=== PATIENT | female | born 1945 | race Caucasian/White ===

== ENCOUNTER 2023-09-09 17:42 | Inpatient (IN) ==
--- NOTE | 2023-09-09 18:53 | XRay Report ---
XR chest 1V portable HISTORY: 78 years-old Female weakness, cough acute weakness with shortness of breath and cough COMPARISON: None TECHNIQUE: AP view the chest FINDINGS: Atherosclerosis of the aorta with tortuosity. Cardiac silhouette is enlarged. No pneumothorax, pleura l effusion, airspace consolidation or pulmonary edema. Bones appear grossly intact. Mild right hemidi aphragmatic elevation. IMPRESSION: Cardiomegaly without acute process. ACT 112: Negative or not required by law. The above report was generated using voice recognition software. It may contain grammatical, syntax o r spelling errors. Electronically signed by: Brayan Natarajan M.D. 09/09/2023 6:52 PM
[2023-09-09 19:05] LABS: Basophils # (auto) 0.09 K/uL (0.00-0.20); Basophils % (auto) 0.9 %; Eosinophils # (auto) 0.36 K/uL (0.00-0.50); Eosinophils % (auto) 3.5 %; Hematocrit (blood only) 43.1 % (37.0-47.0); Immature Granulocytes # (auto) 0.05 K/uL (0.01-0.20); Immature Granulocytes % (auto) 0.5 %; Lymphocytes # (auto) 0.94 K/uL (1.20-3.40); Lymphocytes % (auto) 9.3 %; Mean Corpuscular Hemoglobin 29.3 pg (25.0-34.0); Mean Corpuscular Hgb Conc 32.5 g/dL (32.0-36.0); Mean Corpuscular Volume 90.2 fL (80.0-100.0); Mean Platelet Volume 11.9 fL (9.4-12.4); Monocytes # (auto) 1.05 K/uL (0.11-0.59); Monocytes % (auto) 10.3 %; Neutrophils # (auto) 7.66 K/uL (1.40-6.50); Neutrophils % (auto) 75.5 %; Platelet Count 219 K/uL (130-400); RDW Coefficient of Variation 13.3 % (11.5-14.5); RDW Standard Deviation 43.8 fL (36.4-46.3); Red Blood Count 4.78 M/uL (4.20-5.40); White Blood Count 10.15 K/ul (4.8-10.8)
[2023-09-09 19:16] LABS: Albumin Globulin Ratio 1.2 (0.9-2); Albumin Level 4.2 gm/dl (3.4-5.0); BUN Creatinine Ratio 23.3 (10-20); Bilirubin,Total 0.7 mg/dl (0.2-1.0); Calcium 9.9 mg/dl (8.6-10.3); Creatinine Clr Calc Pharmacy 50.9 ml/min; Est GFR (African American) 59.5 ml/min; Est GFR (Non-African American) 51.3 ml/min; Globulin 3.6 gm/dl (2.5-4.0); Magnesium 1.7 mg/dl (1.7-2.4); Total Protein 7.8 gm/dl (6.0-8.3)
[2023-09-09 19:22] LABS: Troponin I High Sensitivity 17.4 pg/ml (0-14)
[2023-09-09 19:32] LABS: Thyroid Stimulating Hormone 2.959 uIu/ml (0.300-4.500)
[2023-09-09] MEDS: SODIUM CHLORIDE 0.9% 1,000 ML IV SCH (19:45)
[2023-09-09 20:11] LABS: Adenovirus PCR Not Detected (NotDetected); Bordetella parapertussis PCR Not Detected (NotDetected); Bordetella pertussis PCR Not Detected (NotDetected); Chlamydia pneumoniae PCR Not Detected (NotDetected); Coronavirus 229E PCR Not Detected (NotDetected); Coronavirus CoV-2 (COVID19)PCR Not Detected (NotDetected); Coronavirus HKU1 PCR Not Detected (NotDetected); Coronavirus NL63 PCR Not Detected (NotDetected); Coronavirus OC43PCR Not Detected (NotDetected); Human Metapneumovirus PCR Not Detected (NotDetected); Influenza A PCR Not Detected (NotDetected); Influenza B PCR Not Detected (NotDetected); Mycoplasma pneumoniae PCR Not Detected (NotDetected); Parainfluenza Virus 1 PCR Not Detected (NotDetected); Parainfluenza Virus 2 PCR Not Detected (NotDetected); Parainfluenza Virus 3 PCR DETECTED (NotDetected); Parainfluenza Virus 4 PCR Not Detected (NotDetected); Respiratory Syncytial VirusPCR Not Detected (NotDetected); Rhinovirus/Enterovirus PCR Not Detected (NotDetected)
--- NOTE | 2023-09-09 20:12 | Emergency Department Note ---
Impression & Plan Generalized weakness, Flu-like symptoms, Accidental fall, Infection due to parainfluenza virus 3, Orthostasis ED Provider Note NAME: BERRY ROTH AGE: 78 SEX: Female INFORMANT: Patient and family ED PROVIDER(S): Manas Gonzalez MD CHIEF COMPLAINT: Fall PLAN: Disposition: Admitted Outpatient prescription management: none Referral: None MEDICAL DECISION MAKING: Patient was evaluated after a fall due to generalized weakness. She suffered no injury from this. She did have flulike symptoms. Workup was initiated. Chest x-ray did not reveal any acute findings. EMS noted hypoxia on their arrival however the patient's O2 saturations were borderline adequate here. She was hydrated. Patient has an unremarkable CBC but left shift on differential. Her chemistry panel reveals mild dehydration. Troponin was borderline. BNP normal. TSH normal. BioFire testing was performed. Patient has a positive parainfluenza on bio fire testing. No pneumonia was seen on chest x-ray. Patient had positive orthostatic testing and was too weak to ambulate even with nursing assistance. Patient was given a DuoNeb. On reassessment she was doing relatively well. She had mild orthostasis on testing for she was given additional IV fluids. Family states she has had poor p.o. intake for the last few days. She will need further management in the hospital. Consultation was made with Dr. Jamarcus Casas of the [facility] service. Patient was evaluated in the ER for further management. Care/management discussed with: customer program manager requires escalation of care to admission Level of care consideration(s): After review of the information above and other included data, I feel the patient requires escalation of care to admission. Triage Nursing notes: reviewed and agree them. Vital Signs: reviewed and remarkable for orthostasis Additional History obtained from: Family. They note flulike symptoms have circulated around additional members. Chronic Medical/Social Conditions affecting care: CAD Prior/ Outside/ External records reviewed: none Differential Diagnosis: Viral syndrome, infection, dehydration, metabolic abnormality, hypo/hyperglycemia, electrolyte disturbance, anemia, hypoxia, cardiac sources, intracerebral event, toxicologic, neurologic, as well as other pathologies. Diagnostics, independently interpreted by me: ECG: Twelve-lead ECG reveals normal sinus rhythm with a left bundle branch block at 99 bpm. When compared to 06 January 2023 rate has increased but morphology is similar. The criteria for anterior and inferior infarct are no longer present Cardiac Monitoring: Cardiac monitoring ordered by me: The patient was placed on continuous cardiac monitoring and observed. It revealed a a sinus tachycardic rhythm at 101 bpm Medical decision rules: none Imaging studies: Chest x-ray. Findings: A chest x-ray was performed and revealed no pneumothorax, effusion, infiltrate, pulmonary edema, free air under the diaphragm, or wide mediastinum. Impression: No acute disease. HPI: 78 year old Female arrives for evaluation of a fall. Patient states she felt generally weak and has been dealing with flulike symptoms for 4 days. Family has been dealing with a flulike illness as well. She has had some diarrhea patient states that she got weak and slid out of bed onto the floor. She feels like she did not hurt herself but she was too weak to get up. EMS was summoned. They did note that her initial O2 saturation was in the 80s. Patient responded well and on arrival here her O2 saturations were in the low 90s on room air. Patient notes feeling generally weak and has a nonproductive cough. Pt denies LOC, headache, fevers, chills, diaphoresis, visual changes, neck pain, chest pain, shortness of breath nausea, vomiting, abdominal pain, back pain, melena, hematochezia, urinary symptoms, numbness, lymphadenopathy, rash, or other complaints.. PAST MEDICAL HISTORY: See Below, CAD, left bundle branch block PAST SURGICAL HISTORY: See Below, coronary stent SOCIAL HISTORY: See Below, non-smoker HOME MEDICATIONS: See Below ALLERGIES: See Below VITALS: See Below PHYSICAL EXAMINATION: GENERAL: Awake, alert, mildly ill-appearing, in no distress HENT: Normocephalic, atraumatic. Oropharynx unremarkable. Nasal congestion present EYES: Mildly erythematous conjunctiva without discharge. Sclera non-icteric. NECK: Inspection normal. Non-tender. Supple. No nuchal rigidity. FROM. No masses. RESPIRATORY: Clear to auscultation. No wheezes. No rales. Normal respiratory effort. CARDIAC: Normal rate. Normal rhythm. No murmurs. No rubs. Extremities warm and well perfused. Pulses equal. No JVD. GI: Soft, non-distended. No tenderness to palpation. No rebound or guarding. No masses. RECTAL: Deferred. MUSCULOSKELETAL: Atraumatic. Chest examination reveals no tenderness. The back is symmetrical on inspection without obvious abnormality. There is no CVA tenderness to palpation. No joint edema. LOWER EXTREMITIES: Calves are equal size bilaterally and non-tender. 1+ edema. No discoloration. NEURO: Normal sensorium. Generally weak but no focal sensory or motor deficits noted. SKIN: No rash or jaundice noted. PROCEDURES: none CRITICAL CARE: none OBSERVATION NOTE: none Past Med/Surg History Problem List (Updated 09/09/23 @ 23:06 by Manas Gonzalez MD) Orthostasis (Acute) Infection due to parainfluenza virus 3 (Acute) Accidental fall (Acute) Flu-like symptoms (Acute) Generalized weakness (Acute) S/P coronary artery stent placement LBBB (left bundle branch block) Carotid artery stenosis Hypertension Dyslipidemia CAD (coronary artery disease) Aortic valve sclerosis Medical History (Updated 09/09/23 @ 23:06 by Manas Gonzalez MD) TIA (transient ischemic attack) Sleep apnea Social History Smoking Status: Never smoker Feels Safe at Home: Yes Allergies Allergies Allergy/AdvReac Type Severity Reaction Status Date / Time No Known Allergies Allergy Verified 08/11/23 11:07 Home Meds Home Medications Medication Instructions Recorded Confirmed cholecalciferol (vitamin D3) 125 125 mcg PO DAILY 01/05/23 08/11/23 mcg (5,000 unit) capsule simvastatin 40 mg tablet 40 mg PO DAILY 01/05/23 08/11/23 spironolactone 25 mg tablet 25 mg PO DAILY 01/05/23 08/11/23 aspirin 81 mg tablet,delayed 81 mg PO DAILY 01/06/23 08/11/23 release Previous Rx's Medication Instructions Recorded metoprolol succinate 25 mg 25 mg PO DAILY #90 tabs 01/06/23 tablet,extended release 24 hr levothyroxine 100 mcg tablet 100 mcg PO DAILY #40 tabs 01/20/23 Results & Data (ED) Vital Signs Vital Signs - 24 hr 09/09/23 17:42 09/09/23 17:51 09/09/23 17:55 Temperature 36.8 C Temperature Source Oral Pulse Rate - Lying Pulse Rate - Sitting Pulse Rate - Standing Pulse Rate 107 H 91 H 95 H Pulse Rate from SpO2 Sensor 94 H Pulse Rhythm Respiratory Rate 18 23 Respiratory Effort / Characteristics Non-Labored Respiratory Depth Normal Respiratory Pattern Regular Blood Pressure - Lying Blood Pressure - Sitting Blood Pressure- Standing Blood Pressure 181/82 H Blood Pressure Mean 115 Pulse Oximetry 94 95 Oxygen Delivery Method Room Air Sepsis Recent Fever Within 48 Hours No Sepsis New/Unexplained Change in Mental Status N/A Sepsis Action Taken by Nursing No Action Required 09/09/23 18:00 09/09/23 18:00 09/09/23 18:30 Temperature Temperature Source Pulse Rate - Lying Pulse Rate - Sitting Pulse Rate - Standing Pulse Rate 90 100 H Pulse Rate from SpO2 Sensor 91 H 99 H Pulse Rhythm Respiratory Rate 26 H 12 Respiratory Effort / Characteristics Respiratory Depth Respiratory Pattern Blood Pressure - Lying Blood Pressure - Sitting Blood Pressure- Standing Blood Pressure 180/75 H Blood Pressure Mean 100 Pulse Oximetry 93 93 Oxygen Delivery Method Sepsis Recent Fever Within 48 Hours Sepsis New/Unexplained Change in Mental Status Sepsis Action Taken by Nursing 09/09/23 18:31 09/09/23 18:31 09/09/23 18:35 Temperature Temperature Source Pulse Rate - Lying Pulse Rate - Sitting Pulse Rate - Standing Pulse Rate 100 H 107 H Pulse Rate from SpO2 Sensor 101 H Pulse Rhythm Regular Respiratory Rate 17 18 Respiratory Effort / Characteristics Respiratory Depth Respiratory Pattern Blood Pressure - Lying Blood Pressure - Sitting Blood Pressure- Standing Blood Pressure 165/46 H Blood Pressure Mean 75 Pulse Oximetry 92 94 Oxygen Delivery Method Room Air Sepsis Recent Fever Within 48 Hours Sepsis New/Unexplained Change in Mental Status Sepsis Action Taken by Nursing 09/09/23 19:00 09/09/23 19:00 09/09/23 20:54 Temperature Temperature Source Pulse Rate - Lying 104 H Pulse Rate - Sitting 114 H Pulse Rate - Standing 113 H Pulse Rate 97 H Pulse Rate from SpO2 Sensor 103 H Pulse Rhythm Respiratory Rate 22 Respiratory Effort / Characteristics Respiratory Depth Respiratory Pattern Blood Pressure - Lying 164/78 H Blood Pressure - Sitting 155/81 H Blood Pressure- Standing 101/59 L Blood Pressure 156/83 H Blood Pressure Mean 134 Pulse Oximetry 92 Oxygen Delivery Method Sepsis Recent Fever Within 48 Hours Sepsis New/Unexplained Change in Mental Status Sepsis Action Taken by Nursing Laboratory Data 09/09/23 17:50 09/09/23 17:50 Lab Results 09/09/23 09/09/23 09/09/23 Range/Units 17:50 19:09 22:02 WBC 10.15 (4.8-10.8) K/ul RBC 4.78 (4.20-5.40) M/uL Hgb 14.0 (12.0-16.0) g/dl Hct 43.1 (37.0-47.0) % MCV 90.2 (80.0-100.0) fL MCH 29.3 (25.0-34.0) pg MCHC 32.5 (32.0-36.0) g/dL RDW Std Deviation 43.8 (36.4-46.3) fL RDW Coeff of Niki 13.3 (11.5-14.5) % Plt Count 219 (130-400) K/uL MPV 11.9 (9.4-12.4) fL Immature Gran % (Auto) 0.5 % Neut % (Auto) 75.5 % Lymph % (Auto) 9.3 % Bladen % (Auto) 10.3 % Eos % (Auto) 3.5 % Baso % (Auto) 0.9 % Neut # (Auto) 7.66 H (1.40-6.50) K/uL Lymph # (Auto) 0.94 L (1.20-3.40) K/uL Bladen # (Auto) 1.05 H (0.11-0.59) K/uL Eos # (Auto) 0.36 (0.00-0.50) K/uL Baso # (Auto) 0.09 (0.00-0.20) K/uL Immature Gran # (Auto) 0.05 (0.01-0.20) K/uL Sodium 138 (136-145) mmol/L Potassium 4.0 (3.5-5.1) mmol/L Chloride 102 (98-107) mmol/L Carbon Dioxide 27 (21-32) mmol/L Anion Gap 9 (3-11) BUN 24 H (6-23) mg/dl Creatinine 1.03 (0.6-1.2) mg/dl Est Cr Clr Drug Dosing 50.9 ml/min Est GFR ( Amer) 59.5 ml/min Est GFR (Non-Af Amer) 51.3 ml/min BUN/Creatinine Ratio 23.3 H (10-20) Glucose 119 H (70-99(Fasting)) mg/dl Calcium 9.9 (8.6-10.3) mg/dl Magnesium 1.7 (1.7-2.4) mg/dl Total Bilirubin 0.7 (0.2-1.0) mg/dl AST 18 (13-39) U/L ALT 10 (7-52) U/L Alkaline Phosphatase 51 (34-104) U/L Troponin I High Sens 17.4 H (0-14) pg/ml B-Natriuretic Peptide 56 (0-100) pg/ml Total Protein 7.8 (6.0-8.3) gm/dl Albumin 4.2 (3.4-5.0) gm/dl Globulin 3.6 (2.5-4.0) gm/dl Albumin/Globulin Ratio 1.2 (0.9-2) TSH 2.959 (0.300-4.500) uIu/ml Urine Color Yellow Urine Appearance Clear (Clear) Urine pH 7.5 (4.5-7.5) Ur Specific [place] 1.016 (1.000-1.030) Urine Protein Trace H (Negative) Urine Glucose (UA) Negative (Negative) Urine Ketones 1+ H (Negative) Urine Blood 1+ H (Negative) Urine Nitrite Negative (Negative) Urine Bilirubin Negative (Negative) Urine Urobilinogen Negative (Negative) Ur Leukocyte Esterase Negative (Negative) Urine WBC (Auto) 0-5 (0-5) /hpf Urine RBC (Auto) 6-10 H (0-2) /hpf U Hyaline Cast (Auto) 0-2 (0-2) /lpf U Epithel Cells (Auto) 0-2 (0-2) /hpf Urine Bacteria (Auto) None Seen (None Seen) Adenovirus (PCR) Not Detected (NotDetected) B. pertussis DNA (PCR) Not Detected (NotDetected) B.parapertussis DNA PCR Not Detected (NotDetected) C. pneumoniae DNA (PCR) Not Detected (NotDetected) Coronavirus OC43 (PCR) Not Detected (NotDetected) Coronavirus HKU1 (PCR) Not Detected (NotDetected) Coronavirus 229E (PCR) Not Detected (NotDetected) SARS-CoV-2 (PCR) Not Detected (NotDetected) Coronavirus NL63 (PCR) Not Detected (NotDetected) Human Metapneumovir PCR Not Detected (NotDetected) Influenza Type A (PCR) Not Detected (NotDetected) Influenza Type B (PCR) Not Detected (NotDetected) M. pneumoniae (PCR) Not Detected (NotDetected) Parainfluenza 1 (PCR) Not Detected (NotDetected) Parainfluenza 2 (PCR) Not Detected (NotDetected) Parainfluenza 3 (PCR) DETECTED A (NotDetected) Parainfluenza 4 (PCR) Not Detected (NotDetected) RSV (PCR) Not Detected (NotDetected) Entero/Rhino (PCR) Not Detected (NotDetected) Administered Medications Sodium Chloride (Nss) 1,000 mls @ 125 mls/hr IV .Q8H JUSTO Stop: 10/09/23 19:44 Last Admin: 09/09/23 19:45 Dose: 125 mls/hr Documented By: MICHELLE Discontinued Medications Albuterol (Albut/Ipratrop 3mg/0.5mg Neb 3 Ml Vial) 3 ml NEB NOW STA; Protocol Stop: 09/09/23 20:50 Last Admin: 09/09/23 21:04 Dose: 3 ml Documented By: WILFREDO Sodium Chloride (Nss) 500 mls @ 999 mls/hr IV .Q31M ONE Stop: 09/09/23 21:43 Last Admin: 09/09/23 22:50 Dose: 999 mls/hr Documented By: MICHELLE Imaging Data Radiologist's Impression: Chest X-Ray 09/09/23 18:35 XR chest 1V portable HISTORY: 78 years-old Female weakness, cough acute weakness with shortness of breath and cough COMPARISON: None TECHNIQUE: AP view the chest FINDINGS: Atherosclerosis of the aorta with tortuosity. Cardiac silhouette is enlarged. No pneumothorax, pleural effusion, airspace consolidation or pulmonary edema. Bones appear grossly intact. Mild right hemidiaphragmatic elevation. IMPRESSION: Cardiomegaly without acute process. ACT 112: Negative or not required by law. The above report was generated using voice recognition software. It may contain grammatical, syntax or spelling errors. Electronically signed by: Brayan Natarajan M.D. 09/09/2023 6:52 PM Discharge Plan Visit Data Chief Complaint: Fall Stated Complaint: Fall ED Provider: Manas Gonzalez Discharge Problem: Generalized weakness, Flu-like symptoms, Accidental fall, Infection due to parainfluenza virus 3, Orthostasis Forms Stand Alone Forms: My [facility] Prescriptions Prescriptions: No Action levothyroxine 100 mcg tablet 100 mcg PO DAILY Qty: 40 0RF simvastatin 40 mg tablet 40 mg PO DAILY cholecalciferol (vitamin D3) 125 mcg (5,000 unit) capsule 125 mcg PO DAILY spironolactone 25 mg tablet 25 mg PO DAILY metoprolol succinate 25 mg tablet extended release 24 hr 25 mg PO DAILY Qty: 90 3RF aspirin 81 mg tablet,delayed release (DR/EC) 81 mg PO DAILY Referrals Referrals: PCP,NO [Primary Care Provider] -
[2023-09-09] MEDS: ALBUT/IPRATROP 3MG/0.5MG NEB 3 ML VIAL NEB STA (21:04)
--- NOTE | 2023-09-09 21:45 | History & Physical Report ---
Date of Service September 09, 2023 Assessment & Plan (1) Orthostasis: (2) Infection due to parainfluenza virus 3: (3) Accidental fall: (4) Flu-like symptoms: (5) Hypertension: (6) Dyslipidemia: (7) CAD (coronary artery disease): Plan Parainfluenza -Tested positive for parainfluenza 3 virus on respiratory biofire -Supportive measures -Chest x-ray without sign of pneumonia, no indication for antibiotics. UA without signs of infection -Will monitor daily CBC -Currently stable on room air, supplemental oxygen as needed -Yarelis Pozo PRN Weakness | Orthostasis -Ground level fall at home -Uses walker for ambulation -Suspect some deconditioning from current viral illness -PT, OT evaluations ordered -Due to poor PO intake and orthostasis, will start IV fluids and monitor BMP CAD -Continue statin Hypothyroidism -Continue levothyroxine Admit to med/tele Diet: heart healthy VTE prophylaxis: Lovenox Code Status: Full Code History of Present Illness Primary Care Provider: NO PCP Rajani Roy is a 78 year-old female with a past medical history of CAD, LBBB, HTN, dyslipidemia who presented to the hospital for weakness. She presented to the ED via EMS after a ground level fall and worsening weakness. Patient endorses several days of worsening weakness and feeling rundown. She notes that she lives with her daughter and son-in-law, notes that her family has also been sick in this same time period. Patient moved to the area to live with family about two years ago- has established with [facility] cardiology but does not have a PCP. Patient denies dizziness or lightheadedness, no nausea or vomiting. Endorses decreased intake of fluids and food since this illness started several days ago. She states she has "vein issues" and always has lower extremity swelling but this has not changed recently. Patient notes that she uses a walker at home. Patient also notes that her family that she lives with is leaving for [place] today for vacation. ED Course: -CBC,CMP, troponin -Chest x-ray, UA Allergies Allergy/AdvReac Type Severity Reaction Status Date / Time Sulfa (Sulfonamide Allergy Intermediate Hives Unverified 09/10/23 10:32 Antibiotics) Home Medications Medication Instructions Recorded Confirmed Type cholecalciferol (vitamin D3) 125 125 mcg PO DAILY 01/05/23 09/10/23 History mcg (5,000 unit) capsule simvastatin 40 mg tablet 40 mg PO DAILY 01/05/23 09/10/23 History spironolactone 25 mg tablet 25 mg PO DAILY 01/05/23 09/10/23 History aspirin 81 mg tablet,delayed 81 mg PO DAILY 01/06/23 09/10/23 History release levothyroxine 100 mcg tablet 100 mcg PO DAILY #40 tabs 01/20/23 09/10/23 Rx docusate sodium 100 mg capsule 100 mg PO BID 09/10/23 09/10/23 History (Colace) metoprolol succinate 50 mg 25 mg PO DAILY 09/10/23 09/10/23 History tablet,extended release 24 hr Past Med/Surg History Problem List (Updated 09/09/23 @ 23:06 by Manas Gonzalez MD) Orthostasis (Acute) Infection due to parainfluenza virus 3 (Acute) Accidental fall (Acute) Flu-like symptoms (Acute) Generalized weakness (Acute) S/P coronary artery stent placement LBBB (left bundle branch block) Carotid artery stenosis Hypertension Dyslipidemia CAD (coronary artery disease) Aortic valve sclerosis Medical History (Updated 09/09/23 @ 23:06 by Manas Gonzalez MD) TIA (transient ischemic attack) Sleep apnea Social History Smoking Status: Never smoker Hx Alcohol Use: No Hx Substance Use: No Preferred Language: Syriac Communication Ability: Effective Embroidery Finisher Required: No Beliefs That Will Affect Care: None Current Living Situation: Family Other Information That Helps Us Care for You: No Feels Safe at Home: Yes Safety Concerns: Feels Safe At This Time Assistive Devices: Walker and Wheelchair Review of Systems Review of Systems: As per above Physical Exam Constitutional: Appears fatigued but in no acute distress Eyes: + anicteric sclerae; no conjunctival abn ormality ENMT: Ears: no external ear abnormality Nose: no external nose abnormality Slightly tacky mucous membranes Respiratory: + cough; no respiratory distress and nettles s not use accessory muscles Some diminished lung sounds Cardiovascular: Rate/Rhythm: regular rate and regular rhythm +1 edema of bilateral lower extremities, skin with signs of venous stasis dermatitis Gastrointestinal (Abdomen): Inspection/Auscultation: abdomen normal to inspection; abdomen not distended Percussion/Palpation: abdomen soft; abdomen nontender Musculoskeletal: Moves all limbs indepdently in bed Neurologic: no focal motor deficits Psychiatric: A+Ox3, euthymic affect Results & Data Results & Data Vital Signs (Past 12 Hours) Vital Signs Temp Pulse Resp BP Pulse Ox O2 Del Method 09/09/23 19:00 97 H 22 92 09/09/23 19:00 156/83 H 09/09/23 18:35 107 H 18 94 Room Air 09/09/23 18:31 165/46 H 09/09/23 18:31 100 H 17 92 09/09/23 18:30 100 H 12 93 09/09/23 18:00 90 26 H 93 09/09/23 18:00 180/75 H 09/09/23 17:55 95 H 23 95 09/09/23 17:51 91 H 09/09/23 17:42 36.8 C 107 H 18 181/82 H 94 Room Air Supervising Physician Co-Signing Physician Notes Attending addendum: I have physically seen this patient, have supervised the medical residents activities, and agree with the H&P unless as otherwise noted. Assessment and Plan: Parainfluenza virus 3 infection- Positive testing on respiratory BioFire Supportive treatment with IV fluids and Tylenol Tessalon Perles 100 mg p.o. 3 times daily as needed DuoNebs every 2 hours as needed Weakness/orthostasis- Status post ground-level fall at home Likely secondary to above viral infection Follow after receiving IV fluids May need PT/OT assessment Elevated troponin/CAD- Troponin 17.4, likely supply/demand mismatch Remaining orders and notations as noted
[2023-09-09] MEDS: SODIUM CHLORIDE 0.9% 500 ML IV ONE (22:50)
[2023-09-09 22:54] LABS: Appearance Urine Clear (Clear); Bacteria Urine Automated None Seen (None Seen); Bilirubin Urine Negative (Negative); Blood Urine 1+ (Negative); Cast Urine Automated 0-2 /lpf (0-2); Color Urine Yellow; Epithelial Cell Urine Auto 0-2 /hpf (0-2); Glucose Urine UA Negative (Negative); Ketones Urine 1+ (Negative); Leukocyte Esterase Urine Negative (Negative); Nitrite Urine Negative (Negative); Protein Urine Trace (Negative); Specific Gravity Urine 1.016 (1.000-1.030); Urobilinogen Urine Negative (Negative); WBC Urine Automated 0-5 /hpf (0-5); pH Urine 7.5 (4.5-7.5)
[2023-09-09] MEDS ORDERED: BENZONATATE 100 MG CAPSULE PO PRN (23:11)
[2023-09-09] MEDS ORDERED: DOCUSATE SODIUM 100 MG CAP PO PRN (23:11)
[2023-09-09] MEDS ORDERED: POLYETHYLENE (MIRALAX) 17 GM PACK PO PRN (23:11)
[2023-09-10 04:44] LABS: Basophils # (auto) 0.06 K/uL (0.00-0.20); Basophils % (auto) 0.7 %; Eosinophils # (auto) 0.03 K/uL (0.00-0.50); Eosinophils % (auto) 0.4 %; Immature Granulocytes # (auto) 0.06 K/uL (0.01-0.20); Immature Granulocytes % (auto) 0.7 %; Lymphocytes # (auto) 0.86 K/uL (1.20-3.40); Lymphocytes % (auto) 10.1 %; Mean Corpuscular Hemoglobin 29.5 pg (25.0-34.0); Mean Corpuscular Hgb Conc 33.3 g/dL (32.0-36.0); Mean Corpuscular Volume 88.6 fL (80.0-100.0); Mean Platelet Volume 11.3 fL (9.4-12.4); Monocytes # (auto) 1.09 K/uL (0.11-0.59); Monocytes % (auto) 12.8 %; Neutrophils % (auto) 75.3 %; Platelet Count 191 K/uL (130-400); RDW Coefficient of Variation 13.2 % (11.5-14.5); RDW Standard Deviation 43.4 fL (36.4-46.3)
[2023-09-10 04:51] LABS: Albumin Level 3.6 gm/dl (3.4-5.0); Calcium 8.8 mg/dl (8.6-10.3); Est GFR (African American) 85.9 ml/min; Est GFR (Non-African American) 74.1 ml/min; Phosphorus 3.1 mg/dl (2.5-4.9); Potassium 3.8 mmol/L (3.5-5.1)
[2023-09-10] MEDS: LEVOTHYROXINE SODIUM 100 MCG TABLET PO SCH (07:14)
[2023-09-10] MEDS: ASPIRIN 81 MG ECTAB PO SCH (09:16)
[2023-09-10] MEDS: SPIRONOLACTONE 25 MG TAB PO SCH (09:16)
[2023-09-10] MEDS: METOPROLOL SUCC 25MG EXT REL TAB PO SCH (09:16)
[2023-09-10] MEDS: SIMVASTATIN 40 MG TAB PO SCH (09:16)
[2023-09-10] MEDS: ENOXAPARIN INJ 40 MG/0.4 ML SYR SQ SCH (09:16)
--- NOTE | 2023-09-10 10:25 | Electrocardiogram Report ---
Test Reason : Blood Pressure : / mmHG Vent. Rate : 099 BPM Atrial Rate : 099 BPM P-R Int : 198 ms QRS Dur : 154 ms QT Int : 402 ms P-R-T Axes : 032 -24 137 degrees QTc Int : 515 ms Normal sinus rhythm Left bundle branch block Abnormal ECG When compared with ECG of 06-JAN-2023 13:50, (unconfirmed) Vent. rate has increased BY 45 BPM Left bundle branch block has replaced Non-specific intra-ventricular conduction block Criteria for Anterior infarct are no longer Present Criteria for Anterolateral infarct are no longer Present Criteria for Inferior infarct are no longer Present Confirmed by Joey Todd ([id number]) on 09/10/2023 10:24:59 AM Referred By: REFERRED SELF Confirmed By:Nathaniel Todd
--- NOTE | 2023-09-10 10:56 | Hospitalist Progress Note ---
"Date of Service September 10, 2023 Assessment & Plan (1) Orthostasis: (2) Infection due to parainfluenza virus 3: (3) Accidental fall: (4) Flu-like symptoms: (5) Hypertension: (6) Dyslipidemia: (7) CAD (coronary artery disease): Plan 78 year-old female with a past medical history of CAD, LBBB, HTN, dyslipidemia who presented to the hospital for weakness and related ground level fall: Parainfluenza -Respiratory panel positive for parainfluenza 3 virus -WBC WNL, pt afebrile, Chest x-ray without sign of pneumonia - however, patient appears to be clinically worsening with worsening tachypnea and intermittent need for supplemental oxygen - will start IV Ceftriaxone + azithromycin and monitor for evidence of improvement. -Will monitor daily CBC -Continue supplemental oxygen as needed -Yarelis Pozo PRN Weakness | Ground level fall -S/p Ground level fall at home, normally uses walker for ambulation at baseline -Suspect some deconditioning from current viral illness -PT, OT evaluations ordered, appreciate recs -CM following for dispo planning CAD -Continue statin HTN -Continue home meds Hypothyroidism -Continue levothyroxine med/tele Diet: heart healthy VTE prophylaxis: Lovenox Code Status: Full Code Admission and Anticipated Discharge Date Admission Date: September 09, 2023 Supervising Physician Co-Signing Physician Notes Attending attestation Pt seen and examined in concert with Dr. Goldstein. In agreement with the documented findings as noted in the resident documentation with any exceptions or additions as noted here. Ongoing severe weakness and debility, nonproductive cough but without other accompanying complaint. Reports no fever, GONZALEZ, palpitations, chest pain. On examination, S1/S2 nl RRR no MCG. diffuse rales - some likely transmitted but worse at bases so concerning for developing PNA. Abd NT/ND BS+ve Parainfluenza with concern for PNA on evaluation - abx therapy as noted and monitor daily CBC, BMP. Henna. Generalized weakness - PT/Ot evaluation pending but likely with mprovement in condition. Else see resident documentation as noted. Subjective Patietn evaluated at bedside this morning and again with attending in the afternoon, appears to have gotten more run down and fatigued as the day has gone on. Apart from noting severe weakness/fatigue, patient denies shortness of breath, chest pain, fever/chills. Notes that she has felt a bit sick for the past 4-5 days and weakness started yesterday, leading to fall. Review of Systems Review of Systems: as per HPI Physical Exam Physical Exam: General: Evidently fatigued, resting in bed, no apparent distress Cardiac: Regular rate and rhythm, no murmurs appreciated Respiratory: +Tachypnea, subpar respiratory effort but no wheezes, rales, rhonchi appreciated Abdominal: Soft, non-tender, non-distended. Bowel sounds present. Extremities: +bilateral LE pitting edema to mid-sloan, venous stasis changes Results & Data Results & Data Vital Signs (Past 12 Hours) Vital Signs Temp Pulse Resp BP Pulse Ox Pulse Ox O2 Del Method 09/10/23 09:31 96 H 09/10/23 07:06 Room Air 09/10/23 06:00 94 H 24 141/78 H 90 Room Air 09/10/23 05:30 36.9 C 09/10/23 05:00 105 H 20 138/93 91 Room Air 09/10/23 04:00 97 H 16 153/66 H 90 Room Air 09/10/23 03:32 92 09/10/23 03:00 98 H 25 H 140/63 92 Room Air 09/10/23 02:00 96 H 24 116/61 91 Room Air 09/10/23 01:44 94 H 25 H 129/53 L 92 Room Air 09/10/23 01:21 101 H 22 109/73 93 Room Air 09/10/23 01:00 96 H 23 130/67 09/10/23 00:30 97 H 23 139/67 09/09/23 23:30 100 H 24 122/70 09/09/23 23:00 103 H 23 128/75 O2 Del Method 09/10/23 09:31 09/10/23 07:06 09/10/23 06:00 09/10/23 05:30 09/10/23 05:00 09/10/23 04:00 09/10/23 03:32 Room Air 09/10/23 03:00 09/10/23 02:00 09/10/23 01:44 09/10/23 01:21 09/10/23 01:00 09/10/23 00:30 09/09/23 23:30 09/09/23 23:00 Resident Activity Tracking Resident Involvement: Resident Care Provided Care Provided: Adult [facility] Medicine"
[2023-09-10] MEDS: ALBUT/IPRATROP 3MG/0.5MG NEB 3 ML VIAL NEB PRN (13:29)
[2023-09-10] MEDS: cefTRIAXone SODIUM 2,000 MG/50 ML BAG IV SCH (13:44)
[2023-09-10] MEDS: AZITHROMYCIN 500 MG in DEXTROSE 5% 250 ML IV SCH (14:05)
[2023-09-10] MEDS: ONDANSETRON INJ 2 MG/ML 2 ML VIAL IV PRN (17:09)
--- NOTE | 2023-09-10 19:27 | Billing Data ---
Date of Service September 10, 2023 Coding Level of Care Code 88690 INT INP/OBS CARE
[2023-09-10] MEDS: ACETAMINOPHEN 325 MG TAB PO PRN (20:05)
[2023-09-10] MEDS ORDERED: diphenhydrAMINE 50 MG/ML VIAL IV PRN (20:26)
[2023-09-11] MEDS: RAPID SEQUENCE INDUCTION BAG ONE (03:35)
[2023-09-11] MEDS: FUROSEMIDE 40 MG/4 ML VIAL IV ONE ×2 (03:45→05:07)
[2023-09-11 03:50] LABS: Base Excess VBG 1.1 mEq/L; HCO3 VBG 28 mmol/L; Oxygen Saturation VBG < 60.0 %; PCO2 VBG 55 mmHg (38-50); PO2 VBG 23 mmHg; pH VBG 7.32 (7.36-7.41)
--- NOTE | 2023-09-11 03:53 | Communication Note ---
Date of Service: September 11, 2023 Yamilet Hughes was called at approximately 0300. Hypoxic to the 80s and hypertensive 200s/100s. Increased oxygen requirement from 2L to 15L. Pt admitted with parainfluenza, per day team tachypneic, increased fatigue/weakness throughout the day. At bedside pt appears acutely short of breath with increased secretions. Increased work of breathing with accessory muscle use. Inspiratory/Expiratory wheezing, crackles with excessive secretions. Duoneb given, 40 IV Lasix. Did get 2L IVF in the last 24 hours. With concern for increased work or breathing and concern for increased somnolence, decision was made to transfer patient to ICU as concern that she would need to be intubated. Pt was intubated in ICU. I called son, Maxim, and he is aware of current status.
[2023-09-11] MEDS: NOREPINEPHRINE/D5W 4 MG/250 ML PLCT IV SCH (04:00)
[2023-09-11 04:11] LABS: Albumin Level 3.8 gm/dl (3.4-5.0); BUN Creatinine Ratio 15.6 (10-20); Bilirubin,Total 0.9 mg/dl (0.2-1.0); Calcium 9.1 mg/dl (8.6-10.3); Creatinine Clr Calc Pharmacy 55.3 ml/min; Est GFR (African American) 64.7 ml/min; Est GFR (Non-African American) 55.9 ml/min; Globulin 3.9 gm/dl (2.5-4.0); Magnesium 1.7 mg/dl (1.7-2.4); Phosphorus 2.8 mg/dl (2.5-4.9); Potassium 3.6 mmol/L (3.5-5.1); Total Protein 7.7 gm/dl (6.0-8.3)
[2023-09-11 04:19] LABS: Troponin I High Sensitivity 248.4 pg/ml (0-14)
[2023-09-11] MEDS ORDERED: OSELTAMIVIR PHOSPHATE 75 MG CAP PO STA (04:23)
[2023-09-11] MEDS ORDERED: STAT IV Infusion **Titration per Protocol STA ×2 (04:28→05:07)
[2023-09-11] MEDS: BUDESONIDE 0.5 MG/2 ML VIAL (PULMICORT) NEB ONE (04:29)
--- NOTE | 2023-09-11 04:31 | Critical Care Consultation ---
Date of Consultation September 11, 2023 Assessment & Plan (1) Respiratory failure: (2) Required emergent intubation: (3) Infection due to parainfluenza virus 3: (4) Generalized weakness: (5) Hypertension: (6) Dyslipidemia: (7) CAD (coronary artery disease): (8) Aortic valve sclerosis: Plan Reason Critically Ill: Hypoxic and hypercarbic respiratory failure with pulmonary edema requiring intubation and mechanical ventilation. Neuro - Sedation for mechanical ventilation CAM ICU: Negative - is with poor baseline function and sedentary at home per chart review - Hopeful course of intubation is short - BERNADETTE goal -1, Fentanyl and Propofol for sedation Cardiac - Elevated HsCTNI, CAD, Aortic sclerosis, HTN, HLD, - Patient with noted hypertension on arrival to floor associated with respiratory failure - Lasix 40 IV now - CTA of chest rule out PE as well as eval lung browning- she is now with bilateral patchy infiltrates - Repeat ECHO- eval for change in EF or valve function - HScTNI likely secondary to type II demand- ECG with chronic LBB- trend troponin - Hold BB until hemodynamics proven stable - IV diurese as able - Levophed for hypotension associated with sedation to maintain MAPS> 65 Respiratory - Hypoxic/Hypercarbic respiratory failure - CXR with bilateral patchy infiltrates: Multiple etiologies at this time- viral illness, flash pulmonary edema (SCAPE) from HTN, vs. DAH vs. PE vs. aspiration vs. Other - CTA chest as above - She is currently not refractory hypoxemic and tolerating weaning of PEEP and FIO2 - Hemoptysis noted prior to intubation - intubation noted with difficult passing of ETT through vocal chords- see separate procedure note - Consider Bronchoscopy if DAH suspected following CT scan of chest - Pulmicort neb now as well as daily, schedule COCO nebs - ABG as needed GI - No acute needs - NPO RENAL/LYTES - No acute needs - Follow daily BMP - ICU electrolyte protocol - No acute needs - Place Irwin while intubated ENDO - ICU hyperglycemia protocol- goal <180mg/DL HEME - She is currently oozing from IV sticks, and hemoptysis as well - will send PTT/PT/INR/Fibrinogen- continue supportive care ID - Parainfluenza 3, - Can't exclude bacterial pulmonary source or aspiration - Continue with Azithromycin, Add Zosyn in place of Rocephin at this time - Blood cultures now as currently febrile LINES/IV ACCESS - PIV x2, arterial line, Irwin Continue use of these lines DVT PROPHYLAXIS - Lovenox 40 subq q q24 DISPO: ICU while intubated and sedated I have personally spent 55 minutes of critical care time in the direct management of this patient. This is a life/limb threatening event. This includes time spent evaluating patient, direct bedside care, chart review, placing orders, interpretation of diagnostic studies, discussion with consultants, patient, and family members, as well as other required patient management activities. This time is exclusive of all separately billable procedures, and teaching time and separate from and in addition to any other critical care service time. Thank you for allowing us to participate in the care of this patient. Please refer to my attending physician's documentation for any further recommendations. History of Present Illness Reason for Consultation: Hypoxic respiratory failure Requesting Physician: Jamarcus Casas MD Attending Physician: Joey Bravo MD History of Present Illness 78 YOF who is HD #2 admitted on 09Sep2023 for flu like symptoms, she did test + for parainfluenza 3. David Hughes was called around 0300 this morning and patient was found to be Hypertensive to 200s/100s, hypoxic in the 70s with inspiratory and expiratory wheezing as well as moist cough with crackles throughout. Patient was given 40mg IV lasix by admitting service and nebulizer. Patient was placed on oxymask at 15L and remained hypoxic to the 80s. She had increased work of breathing, using accessory muscles with inability to effectively cough to clear airway. Patient was alert and then started to complain of dizziness and became more somnolent. Decision was made to transfer to the ICU and intubate patient pending respiratory arrest. Patient was intubated by Dr. Young from [facility], see separate procedure note. Post intubation she required short course of Levophed for blood pressure control. ABG revealed hypercarbia as well, hypoxia is resolved, lung sounds improved. Will minimize ventilator settings as appropriate. Arterial line placed for accurate blood pressure monitoring as well as blood draws. She may need central line for access as well as she is with poor access at this time as well as obese body habitus. Previous medical history noted for : Kypohsis, CAD with stent (2009), LBBB, HTN, HLD, Carotid artery stenosis 50-69% right, and >70% left with retrograde flow (2019) CODE: FULL Allergies Allergy/AdvReac Type Severity Reaction Status Date / Time Sulfa (Sulfonamide Allergy Intermediate Hives Unverified 09/10/23 10:32 Antibiotics) Home Medications Medication Instructions Recorded Confirmed Type cholecalciferol (vitamin D3) 125 125 mcg PO DAILY 01/05/23 09/10/23 History mcg (5,000 unit) capsule simvastatin 40 mg tablet 40 mg PO DAILY 01/05/23 09/10/23 History spironolactone 25 mg tablet 25 mg PO DAILY 01/05/23 09/10/23 History aspirin 81 mg tablet,delayed 81 mg PO DAILY 01/06/23 09/10/23 History release levothyroxine 100 mcg tablet 100 mcg PO DAILY #40 tabs 01/20/23 09/10/23 Rx docusate sodium 100 mg capsule 100 mg PO BID 09/10/23 09/10/23 History (Colace) metoprolol succinate 50 mg 25 mg PO DAILY 09/10/23 09/10/23 History tablet,extended release 24 hr Patient History Medical History (Updated 09/11/23 @ 05:05 by ROSA ISELA Traylor) Orthostasis Accidental fall LBBB (left bundle branch block) TIA (transient ischemic attack) Sleep apnea Surgical History (Updated 09/11/23 @ 04:58 by ROSA ISELA Traylor) History of knee joint replacement Social History Smoking Status: Never smoker Hx Alcohol Use: No Hx Substance Use: No Preferred Language: Tajik Communication Ability: Effective Supply [employer]er Required: No Beliefs That Will Affect Care: None Current Living Situation: Family Other Information That Helps Us Care for You: No Feels Safe at Home: Yes Safety Concerns: Feels Safe At This Time Assistive Devices: Walker and Wheelchair Review of Systems Review of Systems: REVIEW OF SYSTEMS: Unable to perform secondary to somnolence and now intubated Physical Exam Physical Exam: PHYSICAL EXAM: General: intubated and sedated, initially awake and conversant that progressed to somnolence Head: Normocephalic, atraumatic ENT: PERRLA, EOMI, no pharyngeal exudate, mucous membranes moist Neuro: AAO x 3, speech clear and appropriate, moving upper extremities and lower extremities, normally sedentary and wheel chair with walker at home Chest: equal rise and fall of the chest, accessory muscle use, inspiratory and expiratory wheezing, crackles, pink thick sputum. Cardiac: Regular rate and rhythm, telemetry reviewed- LBBB tachycardia, skin wa rm dry, cap refill delayed with dusky fingers and cool extremities, peripheral pulses +2 no JVD, no murmur, trace edema in extremities GI: NABS x 4 quadrants, soft, nontender to palpation, no rebound, guarding or tenderness : Irwin placed to gravity Psych: Normal mood and affect Skin: no rash or erythema Results & Data Results & Data Vital Signs (Past 12 Hours) Vital Signs Temp Pulse Pulse Resp BP Pulse Ox O2 Del Method 09/11/23 03:16 107 H 32 H 206/94 H 91 Oxymask 09/11/23 03:14 105 H 30 H 199/119 H 88 L Oxymask 09/11/23 02:45 36.6 C 86 20 167/78 H 94 Nasal Cannula 09/11/23 00:14 36.6 C 75 20 145/66 H 94 Nasal Cannula 09/10/23 23:00 Nasal Cannula 09/10/23 21:59 88 09/10/23 20:16 37.8 C H 86 20 161/73 H 93 Room Air 09/10/23 17:54 91 H 22 168/74 H 91 Nasal Cannula 09/10/23 17:10 Nasal Cannula 09/10/23 17:04 36.7 C 100 H 24 195/98 H 91 Nasal Cannula 09/10/23 16:59 95 H O2 Flow Rate 09/11/23 03:16 15 09/11/23 03:14 10 09/11/23 02:45 2 09/11/23 00:14 2 09/10/23 23:00 2 09/10/23 21:59 09/10/23 20:16 09/10/23 17:54 2 09/10/23 17:10 2 09/10/23 17:04 2 09/10/23 16:59 Laboratory Results Abnormal lab results 09/11/23 09/11/23 Range/Units 03:32 04:22 WBC 12.76 H (4.8-10.8) K/ul Hct 47.1 H (37.0-47.0) % Neut # (Auto) 8.83 H (1.40-6.50) K/uL [place]berry # (Auto) 1.30 H (0.11-0.59) K/uL POC pO2 122 H (80-95) mmHg POC Total CO2 23 L (24-31) mmol/L POC ABG O2 Sat 99.0 H (90-95) % VBG pH 7.32 L (7.36-7.41) VBG pCO2 55 H (38-50) mmHg POC Sodium 134 L (135-144) mmol/L Sodium 134 L (136-145) mmol/L Glucose 122 H (70-99(Fasting)) mg/dl Troponin I High Sens 248.4 H* D (0-14) pg/ml Diagnostic Findings Chest X-Ray 09/09/23 18:35 XR chest 1V portable HISTORY: 78 years-old Female weakness, cough acute weakness with shortness of breath and cough COMPARISON: None TECHNIQUE: AP view the chest FINDINGS: Atherosclerosis of the aorta with tortuosity. Cardiac silhouette is enlarged. No pneumothorax, pleural effusion, airspace consolidation or pulmonary edema. Bones appear grossly intact. Mild right hemidiaphragmatic elevation. IMPRESSION: Cardiomegaly without acute process. ACT 112: Negative or not required by law. The above report was generated using voice recognition software. It may contain grammatical, syntax or spelling errors. Electronically signed by: Brayan Natarajan M.D. 09/09/2023 6:52 PM ECG Additional Comments: NSR with LBBB Coding Level of Care Code 33675 CRITICAL CARE 1ST 30-74M Diagnoses Respiratory failure J96.90 Required emergent intubation Z98.890 Infection due to parainfluenza virus 3 B34.8 Generalized weakness R53.1 Hypertension I10 Dyslipidemia E78.5 CAD (coronary artery disease) I25.10 Aortic valve sclerosis I35.8
[2023-09-11 04:33] LABS: Basophils # (auto) 0.09 K/uL (0.00-0.20); Basophils % (auto) 0.7 %; Eosinophils % (auto) 0.8 %; Hematocrit (blood only) 47.1 % (37.0-47.0); Hemoglobin 15.5 g/dl (12.0-16.0); Immature Granulocytes # (auto) 0.06 K/uL (0.01-0.20); Immature Granulocytes % (auto) 0.5 %; Lymphocytes # (auto) 2.38 K/uL (1.20-3.40); Lymphocytes % (auto) 18.7 %; Mean Corpuscular Hemoglobin 29.6 pg (25.0-34.0); Mean Corpuscular Hgb Conc 32.9 g/dL (32.0-36.0); Mean Corpuscular Volume 90.1 fL (80.0-100.0); Mean Platelet Volume 11.2 fL (9.4-12.4); Monocytes % (auto) 10.2 %; Neutrophils # (auto) 8.83 K/uL (1.40-6.50); Neutrophils % (auto) 69.1 %; Platelet Count 211 K/uL (130-400); RDW Coefficient of Variation 13.2 % (11.5-14.5); RDW Standard Deviation 43.6 fL (36.4-46.3); Red Blood Count 5.23 M/uL (4.20-5.40); White Blood Count 12.76 K/ul (4.8-10.8)
[2023-09-11 04:36] LABS: iSTAT Art Bld Gas pCO2 Correct 39 mmHg (35-46); iSTAT Art Bld Gas pH Corrected 7.358 (7.35-7.45); iSTAT Arterial Blood Gas HCO3 22 meg/L (19-24); iSTAT Arterial Blood Gas pCO2 37 mmHg (35-46); iSTAT Arterial Blood Gas pH 7.37 (7.35-7.45); iSTAT Arterial Blood Gas pO2 122 mmHg (80-95); iSTAT Arterial Blood Gas pO2 C 128; iSTAT Carbon Dioxide 23 mmol/L (24-31); iSTAT FiO2 100 %; iSTAT Hematocrit 47 % (37-47); iSTAT Potassium 4.2 mmol/L (3.3-5.0); iSTAT Site Art Line; iSTAT Sodium 134 mmol/L (135-144)
--- NOTE | 2023-09-11 04:43 | Procedure Note ---
Procedure Note Date of Service September 11, 2023 Note ARTERIAL LINE PROCEDURE NOTE: Procedure: Arterial Line Placement Proceduralist: Arron NATARAJAN ([facility] Attending: Dr. Gee Indication: Monitoring on Pressors Anesthesia: [x]None Emergent Consent was implied as patient is FULL CODE need for accurate blood pressure and frequent blood sampling. Benefit outweighs risk at this time. A time-out was completed verifying correct patient, procedure, site, positioning, and implant(s) or special equipment if applicable. Allens test was performed to ensure adequate perfusion. Patients LEFT wrist was prepped and draped in the usual sterile fashion. Ultrasound guidance was used to aid needle placement. A 20g Arrow arterial line was introduced into the LEFT RADIAL artery. Brisk flash of blood was noted, the wire was advanced without resistance. The catheter was then threaded, and the needle was removed with appropriate blood return. Pressure tubing was attached noting a good waveform. The patient tolerated the procedure well. The line was sutured in place and covered with sterile dressing Blood Loss: Minimal Complications: None Attending: Dr. Gee Artery Identified: YES Line confirmed in Artery with ultrasound: Complications: NONE immediate Patient tolerated procedure: WELL Coding CPT Codes Tubes, Drains, and Vasc Access - Tubes, Drains, and Vasc Access: [id number] Arterial Cath/Cannulation Sampling/Monitoring/Transfusion ([id number]) [facility] [place] Procedure Codes (Charges) Tubes, Drains, and Vasc Access Procedure 1: Tubes, Drains, and Vasc Access: [id number] Arterial Cath/Cannulation Sampling/Monitoring/Transfusion
[2023-09-11] MEDS ORDERED: fentaNYL BOLUS from BAG IV PRN (05:07)
[2023-09-11] MEDS ORDERED: PROPOFOL BOLUS FROM BAG IV PRN (05:07)
[2023-09-11] MEDS: OPTIRAY 320 125ml IV ONE (05:58)
[2023-09-11] MEDS: fentaNYL citrate 2,500 MCG/250 ML BAG IV SCH (06:11)
[2023-09-11] MEDS: propofoL 1,000 MG/100 ML VIAL IV SCH (06:12)
[2023-09-11] MEDS: fentaNYL citrate 2,500 MCG/250 ML BAG IV ONE (06:19)
[2023-09-11] MEDS: NOREPINEPHRINE/D5W 4 MG/250 ML IV ONE (06:19)
[2023-09-11] MEDS: PROPOFOL IV EMULSION 10 MG/ML 100 ML VIAL IV ONE (06:19)
[2023-09-11] MEDS: PIPERACILLIN/TAZOBACTAM 4.5 GM in DEXTROSE 5% MINI-B 100 ML IV ONE (06:41)
[2023-09-11 06:42] LABS: Fibrinogen 724 mg/dl (184-400); Partial Thromboplastin Ratio 1.1; Partial Thromboplastin Time 30 Seconds (21-31); Prothrombin Time 11.3 Seconds (9.0-12.0)
--- NOTE | 2023-09-11 07:06 | Emergency Department Note ---
ED Visit Note Endotracheal Intubation in the ICU Indication: Respiratory failure. The patient was on 100% oxygen via BVM prior to the procedure. Suction, airway equipment, RSI drugs, respiratory equipment, and appropriate personnel were prepared prior to the initiation of the procedure. A time out was taken. Induction was performed with etomidate and succinylcholine. After observing the clinical benefit of the medications, the airway was easily visualized utilizing a glide scope. A 7.5 size ETT tube was used initially but intubation was unsuccessful as the endotracheal tube was too large to pass through the vocal cords. This was removed from the airway and bagged ventilations were performed again. O2 saturation remained around 90%. A 7.0 endotracheal tube was used on the second attempt and was placed atraumatically to 24 cm using standard technique. The cuff inflated without signs of malfunction. There were bilateral breath sounds, positive colormetric change, no gastric sounds, and post procedure pulse oximetry was 94%. .
[2023-09-11] MEDS: ALBUTEROL 0.083% NEBU SOLN 3 ML VIAL NEB SCH (07:12)
[2023-09-11] MEDS: BUDESONIDE 0.25 MG/2 ML VIAL (PULMICORT) NEB SCH (07:12)
--- NOTE | 2023-09-11 07:19 | Hospitalist Progress Note ---
"Date of Service September 11, 2023 Assessment & Plan (1) Infection due to parainfluenza virus 3: (2) Flu-like symptoms: (3) Hypertension: (4) Dyslipidemia: (5) CAD (coronary artery disease): Plan 78 year-old female with a past medical history of CAD, LBBB, HTN, dyslipidemia who presented to the hospital for weakness and related ground level fall: Hypoxic/Hypercarbic Respiratory Failure, Parainfluenza -Respiratory panel positive for parainfluenza 3 virus -Patient transferred to ICU after rapid decompensation characterized by heightened oxygen demand, tachypnea, new onset fevers - pt was intubated and placed on mechanical ventilation -CXR with bilateral patchy infiltrates - ?secondary bacterial pneumonia, abx changed to Zosyn + Azithromycin, blood cultures drawn, pending -ICU team may consider bronchoscopy -Continue albuterol and budesonide nebs Elevated HsCTNI, CAD, Aortic sclerosis, HTN, HLD - S/p Lasix 40mg IV - TTE ordered, pending - Elevated troponin likely due to demand ischemia - Pressor support as needed with target MAP>65 Weakness | Ground level fall -S/p Ground level fall at home, normally uses walker for ambulation at baseline -Suspect some deconditioning from current viral illness -PT, OT evaluations ordered, appreciate recs when patient can be feasibly assessed -CM following for dispo planning Hypothyroidism -Continue levothyroxine med/tele Diet: NPO VTE prophylaxis: Lovenox Code Status: Full Code Admission and Anticipated Discharge Date Admission Date: September 09, 2023 Supervising Physician Co-Signing Physician Notes Attending attestation Pt seen and examined in concert with Dr. Goldstein. In agreement with the documented findings as noted in the resident documentation with any exceptions or additions as noted here. Intubated and sedated on ventilator, history unobtainable. Family at bedside endorses no significant lead up to this debility. On examination, non-agitated breathing on vent. S1/S2 nl RRR no MCG. diffuse rales with transmitted sounds on vent. Acute hypoxic respiratory failure in the setting of Parainfluenza with concern for PNA - ICU consult appreciated - abx therapy escalated on transition to ICU with ongoing fevers. f/u cultures, trend CBC, BMP. Hypotension - on pressors with MAP ~60 at time of evaluation Else see resident documentation as noted. Subjective Code purple called overnight as patient was having rapidly escalating oxygen requirements, assessed by night team and decision was made to transfer patient to ICU, where she was intubated and placed on mechanical ventilation. Patient evaluated at bedside this morning with family present. Review of Systems Review of Systems: as per HPI Physical Exam Physical Exam: General: Sedated with endotracheal tube in place Results & Data Results & Data Vital Signs (Past 12 Hours) Vital Signs Temp Pulse Pulse Resp BP BP Pulse Ox 09/11/23 07:13 95 H 16 98 09/11/23 07:13 95 H 16 98 09/11/23 06:18 86 09/11/23 05:30 95 H 17 88 L 09/11/23 05:15 84 25 H 96 09/11/23 05:00 86 26 H 95 09/11/23 04:55 39.5 C H 89 15 95 09/11/23 04:55 127/55 L 09/11/23 04:51 94 H 30 H 92 09/11/23 04:51 120/60 09/11/23 04:46 114/59 L 09/11/23 04:46 87 27 H 93 09/11/23 04:45 39.3 C H 88 28 H 92 09/11/23 04:44 09/11/23 04:43 113/49 L 09/11/23 04:43 87 22 94 09/11/23 04:31 84 22 94 09/11/23 04:31 72/59 L 09/11/23 04:30 85 24 95 09/11/23 04:28 17 09/11/23 04:26 63/39 L 09/11/23 04:26 90 16 95 09/11/23 04:20 136/83 09/11/23 04:20 96 H 26 H 97 09/11/23 04:20 09/11/23 04:16 123/88 09/11/23 04:16 98 H 24 96 09/11/23 04:15 99 H 26 H 96 09/11/23 04:11 172/89 H 09/11/23 04:11 101 H 29 H 96 09/11/23 04:06 104 H 25 H 97 09/11/23 04:06 189/109 H 09/11/23 04:02 187/96 H 09/11/23 04:02 102 H 14 96 09/11/23 04:00 104 H 16 92 09/11/23 03:58 107 H 17 91 09/11/23 03:58 196/103 H 09/11/23 03:55 106 H 25 H 88 L 09/11/23 03:55 203/108 H 09/11/23 03:48 117 H 30 H 87 L 09/11/23 03:30 115 H 35 H 09/11/23 03:16 107 H 32 H 206/94 H 91 09/11/23 03:14 105 H 30 H 199/119 H 88 L 09/11/23 02:45 36.6 C 86 20 167/78 H 94 09/11/23 00:14 36.6 C 75 20 145/66 H 94 09/10/23 23:00 09/10/23 21:59 88 09/10/23 20:16 37.8 C H 86 20 161/73 H 93 O2 Del Method O2 Flow Rate FiO2 09/11/23 07:13 40 09/11/23 07:13 Mechanical Vent 40 09/11/23 06:18 09/11/23 05:30 09/11/23 05:15 09/11/23 05:00 09/11/23 04:55 09/11/23 04:55 09/11/23 04:51 09/11/23 04:51 09/11/23 04:46 09/11/23 04:46 09/11/23 04:45 09/11/23 04:44 Mechanical Vent 70 09/11/23 04:43 09/11/23 04:43 09/11/23 04:31 09/11/23 04:31 09/11/23 04:30 09/11/23 04:28 70 09/11/23 04:26 09/11/23 04:26 09/11/23 04:20 09/11/23 04:20 09/11/23 04:20 70 09/11/23 04:16 09/11/23 04:16 09/11/23 04:15 09/11/23 04:11 09/11/23 04:11 09/11/23 04:06 09/11/23 04:06 09/11/23 04:02 09/11/23 04:02 09/11/23 04:00 09/11/23 03:58 09/11/23 03:58 09/11/23 03:55 09/11/23 03:55 09/11/23 03:48 09/11/23 03:30 09/11/23 03:16 Oxymask 15 09/11/23 03:14 Oxymask 10 09/11/23 02:45 Nasal Cannula 2 09/11/23 00:14 Nasal Cannula 2 09/10/23 23:00 Nasal Cannula 2 09/10/23 21:59 09/10/23 20:16 Room Air Resident Activity Tracking Resident Involvement: Resident Care Provided Care Provided: Adult Hospital Medicine"
--- NOTE | 2023-09-11 07:35 | XRay Report ---
XR chest 1V portable HISTORY: 78 years-old Female intubation acute respiratory failure COMPARISON: CTA chest of same day, chest radiograph 09/09/2023 TECHNIQUE: AP view of the chest FINDINGS: Endotracheal tube overlies the midline, 1.9 cm superior to the heidy. Atherosclerosis of the aorta. Interval development of multifocal mixed interstitial and alveolar opacities along with trace pleural effusions. No pneumothorax. Bones appear grossly intact. Enteric tube distal tip terminates in the g astric body distally. IMPRESSION: 1. Endotracheal and enteric tube placement as above. 2. Cardiomegaly with interval development of mixed interstitial and alveolar opacities suggestive of pulmonary edema versus multifocal pneumonia. 3. Trace pleural effusions. ACT 112: Negative or not required by law. The above report was generated using voice recognition software. It may contain grammatical, syntax o r spelling errors. Electronically signed by: Brayan Natarajan M.D. 09/11/2023 7:33 AM
[2023-09-11] MEDS: ICU Protocol for HYPERglycemia SCH (08:00)
--- NOTE | 2023-09-11 08:53 | CT Scan Report ---
Exam(s): CTA CHEST IV Amt: 120 cc's optiray 320 EXAM: CT Angiography Chest With Intravenous Contrast CLINICAL HISTORY: Reason for exam: hypoxic respiratory failure. TECHNIQUE: Axial computed tomographic angiography images of the chest with intravenous contrast. CTDI is 37.49 mGy and DLP is 1126.14 mGy-cm. Automated exposure control was utilized for the study. A dose lowering technique was utilized adhering to the principles of ALARA. MIP reconstructed images were created and reviewed. COMPARISON: No relevant prior studies available. FINDINGS: Pulmonary arteries: Unremarkable. No pulmonary embolism. Aorta: No acute findings. No thoracic aortic aneurysm. Lungs: Bilateral multifocal pulmonary consolidations are seen. Scattered inflammatory groundglass densities also seen scattered in bilateral lungs. Pleural space: Small right pleural effusion fusion. No pneumothorax. Heart: Mild coronary vascular calcifications are seen. Mitral annular calcifications are seen. No cardiomegaly. No significant pericardial effusion. No evidence of RV dysfunction. Bones/joints: No acute fracture. No dislocation. Moderate degenerative disc disease changes are seen. Lymph nodes: Unremarkable. No enlarged lymph nodes. Gallbladder and bile ducts: There are multiple dependent gallstones. IMPRESSION: 1. Bilateral multifocal pneumonia 2. No acute pulmonary embolism 3. Small right pleural effusion Electronically signed by: David Fuller MD 09/11/23 08:52 AM
[2023-09-11] MEDS: ACETAMINOPHEN 1,000 MG/100 ML VIAL IV PRN (10:44)
--- NOTE | 2023-09-11 10:46 | Electrocardiogram Report ---
Test Reason : Blood Pressure : / mmHG Vent. Rate : 081 BPM Atrial Rate : 081 BPM P-R Int : 208 ms QRS Dur : 166 ms QT Int : 440 ms P-R-T Axes : 023 -26 139 degrees QTc Int : 511 ms Normal sinus rhythm Left bundle branch block Inferior infarct , age undetermined Abnormal ECG When compared with ECG of 09-SEP-2023 19:21, No significant change Confirmed by Gordon Narayan ([id number]) on 09/11/2023 10:45:52 AM Referred By: REFERRED SELF Confirmed By:Gordon Narayan
--- NOTE | 2023-09-11 10:48 | Electrocardiogram Report ---
Test Reason : Blood Pressure : / mmHG Vent. Rate : 090 BPM Atrial Rate : 090 BPM P-R Int : 168 ms QRS Dur : 156 ms QT Int : 426 ms P-R-T Axes : 027 -24 113 degrees QTc Int : 521 ms Normal sinus rhythm Left bundle branch block Abnormal ECG When compared with ECG of 11-SEP-2023 00:35, (unconfirmed) No significant change Confirmed by Gordon Narayan ([id number]) on 09/11/2023 10:47:51 AM Referred By: REFERRED SELF Confirmed By:Gordon Narayan
[2023-09-11] MEDS: PIPERACILLIN/TAZOBACTAM 4.5 GM in DEXTROSE 5% MINI-B 100 ML IV SCH (11:09)
[2023-09-11] MEDS ORDERED: ETOMIDATE 2 MG/ML 20 ML VIAL IV ONE (14:26)
[2023-09-11] MEDS ORDERED: SUCCINYLCHOLINE CHLORIDE 20 MG/ML 10 ML VIAL IV ONE (14:26)
[2023-09-11] MEDS: OSELTAMIVIR PHOSPHATE 6 MG/ML SUSP PO STA (15:58)
[2023-09-11] MEDS ORDERED: GLUCOSE 10 TAB/TUBE PO PRN (17:10)
[2023-09-11] MEDS ORDERED: CARBOHYDRATES FOR HYPOGLYCEMIA PO PRN (17:10)
[2023-09-11] MEDS ORDERED: GLUCOSE 40% GEL 15 GM TUBE PO PRN (17:10)
[2023-09-11] MEDS ORDERED: GLUCAGON FOR INJ 1 MG VIAL SQ PRN (17:10)
[2023-09-11] MEDS ORDERED: DEXTROSE 50% 50 ML SYRINGE IV PRN (17:10)
[2023-09-11] MEDS: INSULIN ASPART PER UNIT CHARGE SC SCH (17:28)
[2023-09-11] MEDS: INSULIN ASPART PER UNIT CHARGE ONE (17:43)
--- NOTE | 2023-09-12 | XCELERA ---
[id number] \\[id number]
[2023-09-12 05:00] LABS: Basophils # (auto) 0.08 K/uL (0.00-0.20); Basophils % (auto) 0.6 %; Eosinophils # (auto) 0.26 K/uL (0.00-0.50); Eosinophils % (auto) 2.1 %; Hematocrit (blood only) 39.9 % (37.0-47.0); Hemoglobin 13.5 g/dl (12.0-16.0); Immature Granulocytes # (auto) 0.05 K/uL (0.01-0.20); Immature Granulocytes % (auto) 0.4 %; Lymphocytes # (auto) 1.79 K/uL (1.20-3.40); Lymphocytes % (auto) 14.4 %; Mean Corpuscular Hemoglobin 29.3 pg (25.0-34.0); Mean Corpuscular Hgb Conc 33.8 g/dL (32.0-36.0); Mean Corpuscular Volume 86.6 fL (80.0-100.0); Mean Platelet Volume 10.7 fL (9.4-12.4); Monocytes # (auto) 1.68 K/uL (0.11-0.59); Monocytes % (auto) 13.5 %; Neutrophils # (auto) 8.57 K/uL (1.40-6.50); Platelet Count 215 K/uL (130-400); RDW Coefficient of Variation 13.4 % (11.5-14.5); RDW Standard Deviation 42.4 fL (36.4-46.3); Red Blood Count 4.61 M/uL (4.20-5.40); White Blood Count 12.43 K/ul (4.8-10.8)
[2023-09-12 05:09] LABS: Albumin Level 2.9 gm/dl (3.4-5.0); BUN Creatinine Ratio 22.4 (10-20); Calcium 8.4 mg/dl (8.6-10.3); Creatinine Clr Calc Pharmacy 54.2 ml/min; Est GFR (African American) 63.1 ml/min; Est GFR (Non-African American) 54.5 ml/min; Magnesium 1.6 mg/dl (1.7-2.4); Phosphorus 2.6 mg/dl (2.5-4.9)
[2023-09-12] MEDS: MAGNESIUM SULFATE / D5W 1 GM/100 ML BAG IV SCH (05:31)
[2023-09-12] MEDS: POTASSIUM CHLORIDE / WTR 10 MEQ/100 ML PLCT IV ONE (05:32)
[2023-09-12] MEDS: POTASSIUM CHLORIDE 20 MEQ/15 ML UDC PO STA (05:36)
--- NOTE | 2023-09-12 06:52 | Hospitalist Progress Note ---
"Date of Service September 12, 2023 Assessment & Plan (1) Infection due to parainfluenza virus 3: (2) Flu-like symptoms: (3) Hypertension: (4) Dyslipidemia: (5) CAD (coronary artery disease): Plan 78 year-old female with a past medical history of CAD, LBBB, HTN, dyslipidemia who presented to the hospital for weakness and related ground level fall: Hypoxic/Hypercarbic Respiratory Failure, Parainfluenza -Respiratory panel positive for parainfluenza 3 virus -Patient transferred to ICU 09/10 after rapid decompensation characterized by heightened oxygen demand, tachypnea, new onset fevers -Successfully extubated on 09/11, currently on Oxymask 3L -Repeat CXR today with ongoing, multifocal mixed interstitial and alveolar opacities- ?secondary bacterial pneumonia, continue Zosyn + Azithromycin, blood cultures negative at 24 hours -Continue albuterol and budesonide nebs Elevated HsCTNI, CAD, Aortic sclerosis, HTN, HLD - TTE significant for reduced LVEF of 30-35% and LV wall motion abnormalities - Cardiology consulted, 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, will recheck TTE tomorrow - Briefly weaned off of pressors but again requiring, continue pressor support as needed with target MAP>65 Weakness | Ground level fall -S/p Ground level fall at home, normally uses walker for ambulation at baseline -Suspect some deconditioning from current viral illness -PT, OT evaluations ordered, appreciate recs when patient can be feasibly assessed -CM following for dispo planning Hypothyroidism -Continue levothyroxine med/tele Diet: NPO VTE prophylaxis: Lovenox Code Status: Full Code Admission and Anticipated Discharge Date Admission Date: September 09, 2023 Supervising Physician Co-Signing Physician Notes Attending attestation Pt seen and examined in concert with Dr. Goldstein. In agreement with the documented findings as noted in the resident documentation with any exceptions or additions as noted here. Successfully extubated this AM but still somnolent, meaningful history unobtainable. On examination, non-agitated but with difficulty following instructions. S1/S2 nl RRR no MCG. diffuse rales with significant nonproductive cough, likely secretions. Acute hypoxic respiratory failure in the setting of Parainfluenza with concern for PNA, fluid overload during resuscitation - ICU consult appreciated - continue abx therapy and follow cultures, trend BMP, CBC. Fluid overload w/ reduced EF on echocardiogram - continue diuresis with Cr monitoring. Hypotension - waxing and waning pressor requirement today Else see resident documentation as noted. Review of Systems Review of Systems: as per HPI Physical Exam Physical Exam: General: Frail appearing, resting comfortably in bed, NAD Cardio: +tachycardia, regular rhythm Resp: Diffusely coarse breath sounds bilaterally Results & Data Results & Data Vital Signs (Past 12 Hours) Vital Signs Temp Pulse Resp BP Pulse Ox O2 Del Method FiO2 09/12/23 05:01 37.2 C 126/54 L 09/12/23 05:01 71 16 100 09/12/23 04:01 37.1 C 09/12/23 04:01 125/56 L 09/12/23 04:01 73 16 100 09/12/23 03:54 125/47 L 09/12/23 03:46 72 16 100 09/12/23 03:46 125/59 L 09/12/23 03:46 125/59 L 09/12/23 03:45 54 L 17 100 30 09/12/23 03:31 129/56 L 09/12/23 03:31 73 16 100 09/12/23 03:16 124/59 L 09/12/23 03:16 76 16 100 09/12/23 03:00 78 16 100 09/12/23 03:00 125/67 09/12/23 03:00 40 09/12/23 02:46 119/60 09/12/23 02:46 79 16 100 09/12/23 02:30 127/60 09/12/23 02:30 79 16 100 09/12/23 02:16 121/64 09/12/23 02:16 83 16 100 09/12/23 02:01 119/56 L 09/12/23 02:00 84 16 100 09/12/23 01:45 116/57 L 09/12/23 01:45 84 16 100 09/12/23 01:30 83 16 100 09/12/23 01:30 121/58 L 09/12/23 01:16 86 16 100 09/12/23 01:16 107/45 L 09/12/23 01:00 106/52 L 09/12/23 01:00 87 16 100 09/12/23 00:45 86 16 100 09/12/23 00:45 114/55 L 09/12/23 00:42 87 16 100 09/12/23 00:41 76 09/12/23 00:00 106/51 L 09/12/23 00:00 74 16 100 09/12/23 00:00 106/51 L 09/11/23 23:50 79 17 100 40 09/11/23 23:45 102/50 L 09/11/23 23:45 74 16 100 09/11/23 23:30 102/53 L 09/11/23 23:30 76 16 100 09/11/23 23:16 88/48 L 09/11/23 23:16 78 16 100 09/11/23 23:00 111/56 L 09/11/23 23:00 82 16 99 09/11/23 23:00 40 09/11/23 22:45 84 16 99 09/11/23 22:45 100/57 L 09/11/23 22:30 105/58 L 09/11/23 22:30 87 16 100 09/11/23 22:15 106/53 L 09/11/23 22:15 91 H 16 99 09/11/23 22:00 103/54 L 09/11/23 22:00 94 H 16 97 09/11/23 21:45 98/55 L 09/11/23 21:45 97 H 16 96 09/11/23 21:30 91/51 L 09/11/23 21:30 103 H 17 94 09/11/23 21:23 94/64 L 09/11/23 21:23 108 H 19 96 09/11/23 21:16 108 H 17 95 09/11/23 21:16 69/33 L 09/11/23 21:05 113 H 20 98 09/11/23 21:05 86/54 L 09/11/23 21:01 113 H 20 99 09/11/23 21:01 84/48 L 09/11/23 21:00 114 H 19 97 09/11/23 20:46 107/58 L 09/11/23 20:46 115 H 24 100 09/11/23 20:31 143/56 H 09/11/23 20:31 103 H 23 91 09/11/23 20:27 99 H 22 88 L 09/11/23 20:27 163/62 H 09/11/23 20:17 138/55 L 09/11/23 20:17 80 20 98 09/11/23 20:05 69 21 96 40 09/11/23 20:01 76 17 94 09/11/23 20:01 122/58 L 09/11/23 20:00 76 17 98 09/11/23 20:00 73 122/60 09/11/23 19:46 121/45 L 09/11/23 19:46 65 16 99 09/11/23 19:31 67 16 98 09/11/23 19:31 114/53 L 09/11/23 19:16 109/49 L 09/11/23 19:16 67 16 99 09/11/23 19:00 Mechanical Vent 40 09/11/23 19:00 40 Resident Activity Tracking Resident Involvement: Resident Care Provided Care Provided: Adult Hospital Medicine"
--- NOTE | 2023-09-12 07:59 | XRay Report ---
XR chest 1V portable HISTORY: 78 years-old Female evalt ETT/OGT/lung [place] acute respiratory failure COMPARISON: CT chest 09/11/2023 TECHNIQUE: AP view of the chest FINDINGS: Endotracheal tube overlies the midline, 3.9 cm superior to the heidy. Enteric tube courses into the stomach. Atherosclerosis of the aorta. Mild right hemidiaphragmatic elevation. Cardiomegaly. Patchy b ilateral mixed interstitial and alveolar testes. No pneumothorax or large pleural effusion. Bones janusz ear grossly intact. IMPRESSION: 1. Endotracheal and enteric tube placement as above. 2. Multifocal mixed interstitial and alveolar opacities suggestive of pneumonia. 3. No pneumothorax. ACT 112: Negative or not required by law. The above report was generated using voice recognition software. It may contain grammatical, syntax o r spelling errors. Electronically signed by: Brayan Natarajan M.D. 09/12/2023 7:58 AM
--- NOTE | 2023-09-12 08:07 | Critical Care Progress Note ---
Date of Service September 12, 2023 Assessment & Plan (1) Respiratory failure: (2) Required emergent intubation: (3) Infection due to parainfluenza virus 3: (4) Generalized weakness: (5) Hypertension: (6) Dyslipidemia: (7) CAD (coronary artery disease): (8) Aortic valve sclerosis: (9) IV infiltration: Plan Reason Critically Ill: Hypoxic and hypercarbic respiratory failure with pulmonary edema requiring intubation and mechanical ventilation. 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 -Gentle diuresis improved hemodynamics and oxygenation -Attempt to minimize fluid -Vasopressors weaning off -Possible infiltration into left AC: Wound consult and close observation of area Respiratory - Hypoxic/Hypercarbic respiratory failure: Improved Viral pneumonia: Parainfluenza - CXR with bilateral patchy infiltrates: Multiple etiologies at this time- viral illness, flash pulmonary edema (SCAPE) from HTN, - Hemoptysis -I feel there is likely component of mild hemoptysis related to flash pulmonary, consideration given to local trauma during intubation, I feel diffuse alveolar hemorrhage is rather unlikely, the patient's clinical condition is stabilized -Cannot exclude concomitant bacterial pneumonia or aspiration pneumonitis, sputum culture ordered yesterday: Scant secretions, Continue Zosyn GI - No acute needs Hypoalbuminemia RENAL/LYTES - -Suspect hypervolemic hyponatremia: Gentle diuresis Hypokalemia: 20 mEq potassium chloride & 20 mEq potassium acetate Hypomagnesemia:Receiving 2 g IV today - No acute needs -Irwin in place for accurate I's and O's ENDO - ICU hyperglycemia protocol- goal <180mg/DL HEME - DVT prophylaxis: Therapeutic Lovenox ID - Parainfluenza 3, - Can't exclude bacterial pulmonary source or aspiration - Continue with Azithromycin, Add Zosyn in place of Rocephin at this time - Blood cultures now as currently febrile LINES/IV ACCESS - PIV x2, arterial line, Irwin Continue use of these lines DVT PROPHYLAXIS - Lovenox 40 subq q q24 DISPO: ICU CODE STATUS: Full, will necessitate follow-up with patient and family: Discussed with son at bedside yesterday, needed to collaborate with siblings I have personally spent 60 minutes of critical care time in the direct management of this patient. This is a life/limb threatening event. This includes time spent evaluating patient, direct bedside care, chart review, placing orders, interpretation of diagnostic studies, discussion with consultants, patient, and family members, as well as other required patient management activities. This time is exclusive of all separately billable procedures, and teaching time and separate from and in addition to any other critical care service time. Admission and Anticipated Discharge Date Admission Date: September 09, 2023 Subjective No significant overnight events. Discussed case with bedside nursing. I was alerted that there was leaking from the left IV site as noticed by shadowing on the patient's gown. Further evaluation of the IV site demonstrated that it was not flushing, medications (Levophed) were transition to a different IV site and patient experienced rapid increase in blood pressure. Medications that had been infusing at that site included fentanyl and Levophed. The fentanyl was discontinued as the patient was in a spontaneous breathing trial and ultimately liberated from the ventilator. Physical Exam Physical Exam: General: Awake, able to follow two-step commands. nontoxic. Skin: Warm, dry, Head: Atraumatic Ears, nose, mouth and throat: airway obscured by endotracheal tube Cardiovascular: Normal peripheral perfusion Respiratory: Ventilator settings reviewed Gastrointestinal: Non distended Musculoskeletal: No deformity, left antecubital fossa: Moderate subcutaneous edema left slightly greater than right Results & Data Results & Data Vital Signs (Past 12 Hours) Vital Signs Temp Pulse Pulse Resp BP Pulse Ox O2 Del Method 09/12/23 07:38 86 18 98 Oxymask 09/12/23 07:25 86 21 99 09/12/23 05:01 37.2 C 126/54 L 09/12/23 05:01 71 16 100 09/12/23 04:01 37.1 C 09/12/23 04:01 125/56 L 09/12/23 04:01 73 16 100 09/12/23 03:54 125/47 L 09/12/23 03:46 72 16 100 09/12/23 03:46 125/59 L 09/12/23 03:46 125/59 L 09/12/23 03:45 54 L 17 100 09/12/23 03:31 129/56 L 09/12/23 03:31 73 16 100 09/12/23 03:16 124/59 L 09/12/23 03:16 76 16 100 09/12/23 03:00 78 16 100 09/12/23 03:00 125/67 09/12/23 03:00 09/12/23 02:46 119/60 09/12/23 02:46 79 16 100 09/12/23 02:30 127/60 09/12/23 02:30 79 16 100 09/12/23 02:16 121/64 09/12/23 02:16 83 16 100 09/12/23 02:01 119/56 L 09/12/23 02:00 84 16 100 09/12/23 01:45 116/57 L 09/12/23 01:45 84 16 100 09/12/23 01:30 83 16 100 09/12/23 01:30 121/58 L 09/12/23 01:16 86 16 100 09/12/23 01:16 107/45 L 09/12/23 01:00 106/52 L 09/12/23 01:00 87 16 100 09/12/23 00:45 86 16 100 09/12/23 00:45 114/55 L 09/12/23 00:42 87 16 100 09/12/23 00:41 76 09/12/23 00:00 106/51 L 09/12/23 00:00 74 16 100 09/12/23 00:00 106/51 L 09/11/23 23:50 79 17 100 09/11/23 23:45 102/50 L 09/11/23 23:45 74 16 100 09/11/23 23:30 102/53 L 09/11/23 23:30 76 16 100 09/11/23 23:16 88/48 L 09/11/23 23:16 78 16 100 09/11/23 23:00 111/56 L 09/11/23 23:00 82 16 99 09/11/23 23:00 09/11/23 22:45 84 16 99 09/11/23 22:45 100/57 L 09/11/23 22:30 105/58 L 09/11/23 22:30 87 16 100 09/11/23 22:15 106/53 L 09/11/23 22:15 91 H 16 99 09/11/23 22:00 103/54 L 09/11/23 22:00 94 H 16 97 09/11/23 21:45 98/55 L 09/11/23 21:45 97 H 16 96 09/11/23 21:30 91/51 L 09/11/23 21:30 103 H 17 94 09/11/23 21:23 94/64 L 09/11/23 21:23 108 H 19 96 09/11/23 21:16 108 H 17 95 09/11/23 21:16 69/33 L 09/11/23 21:05 113 H 20 98 09/11/23 21:05 86/54 L 09/11/23 21:01 113 H 20 99 09/11/23 21:01 84/48 L 09/11/23 21:00 114 H 19 97 09/11/23 20:46 107/58 L 09/11/23 20:46 115 H 24 100 09/11/23 20:31 143/56 H 09/11/23 20:31 103 H 23 91 09/11/23 20:27 99 H 22 88 L 09/11/23 20:27 163/62 H 09/11/23 20:17 138/55 L 09/11/23 20:17 80 20 98 O2 Flow Rate FiO2 09/12/23 07:38 4 09/12/23 07:25 30 09/12/23 05:01 09/12/23 05:01 09/12/23 04:01 09/12/23 04:01 09/12/23 04:01 09/12/23 03:54 09/12/23 03:46 09/12/23 03:46 09/12/23 03:46 09/12/23 03:45 30 09/12/23 03:31 09/12/23 03:31 09/12/23 03:16 09/12/23 03:16 09/12/23 03:00 09/12/23 03:00 09/12/23 03:00 40 09/12/23 02:46 09/12/23 02:46 09/12/23 02:30 09/12/23 02:30 09/12/23 02:16 09/12/23 02:16 09/12/23 02:01 09/12/23 02:00 09/12/23 01:45 09/12/23 01:45 09/12/23 01:30 09/12/23 01:30 09/12/23 01:16 09/12/23 01:16 09/12/23 01:00 09/12/23 01:00 09/12/23 00:45 09/12/23 00:45 09/12/23 00:42 09/12/23 00:41 09/12/23 00:00 09/12/23 00:00 09/12/23 00:00 09/11/23 23:50 40 09/11/23 23:45 09/11/23 23:45 09/11/23 23:30 09/11/23 23:30 09/11/23 23:16 09/11/23 23:16 09/11/23 23:00 09/11/23 23:00 09/11/23 23:00 40 09/11/23 22:45 09/11/23 22:45 09/11/23 22:30 09/11/23 22:30 09/11/23 22:15 09/11/23 22:15 09/11/23 22:00 09/11/23 22:00 09/11/23 21:45 09/11/23 21:45 09/11/23 21:30 09/11/23 21:30 09/11/23 21:23 09/11/23 21:23 09/11/23 21:16 09/11/23 21:16 09/11/23 21:05 09/11/23 21:05 09/11/23 21:01 09/11/23 21:01 09/11/23 21:00 09/11/23 20:46 09/11/23 20:46 09/11/23 20:31 09/11/23 20:31 09/11/23 20:27 09/11/23 20:27 09/11/23 20:17 09/11/23 20:17 Critical Care Results & Data Vital Signs (Past 12 Hours) Vital Signs Temp Pulse Pulse Resp BP Pulse Ox O2 Del Method 09/12/23 07:38 86 18 98 Oxymask 05/19/24 07:25 86 21 99 09/12/23 05:01 37.2 C 126/54 L 09/12/23 05:01 71 16 100 09/12/23 04:01 37.1 C 09/12/23 04:01 125/56 L 09/12/23 04:01 73 16 100 09/12/23 03:54 125/47 L 09/12/23 03:46 72 16 100 09/12/23 03:46 125/59 L 09/12/23 03:46 125/59 L 09/12/23 03:45 54 L 17 100 09/12/23 03:31 129/56 L 09/12/23 03:31 73 16 100 09/12/23 03:16 124/59 L 09/12/23 03:16 76 16 100 09/12/23 03:00 78 16 100 09/12/23 03:00 125/67 09/12/23 03:00 09/12/23 02:46 119/60 09/12/23 02:46 79 16 100 09/12/23 02:30 127/60 09/12/23 02:30 79 16 100 09/12/23 02:16 121/64 09/12/23 02:16 83 16 100 09/12/23 02:01 119/56 L 09/12/23 02:00 84 16 100 09/12/23 01:45 116/57 L 09/12/23 01:45 84 16 100 09/12/23 01:30 83 16 100 09/12/23 01:30 121/58 L 09/12/23 01:16 86 16 100 09/12/23 01:16 107/45 L 09/12/23 01:00 106/52 L 09/12/23 01:00 87 16 100 09/12/23 00:45 86 16 100 09/12/23 00:45 114/55 L 09/12/23 00:42 87 16 100 09/12/23 00:41 76 09/12/23 00:00 106/51 L 09/12/23 00:00 74 16 100 09/12/23 00:00 106/51 L 09/11/23 23:50 79 17 100 09/11/23 23:45 102/50 L 09/11/23 23:45 74 16 100 09/11/23 23:30 102/53 L 09/11/23 23:30 76 16 100 09/11/23 23:16 88/48 L 09/11/23 23:16 78 16 100 09/11/23 23:00 111/56 L 09/11/23 23:00 82 16 99 09/11/23 23:00 09/11/23 22:45 84 16 99 09/11/23 22:45 100/57 L 09/11/23 22:30 105/58 L 09/11/23 22:30 87 16 100 09/11/23 22:15 106/53 L 09/11/23 22:15 91 H 16 99 09/11/23 22:00 103/54 L 09/11/23 22:00 94 H 16 97 09/11/23 21:45 98/55 L 09/11/23 21:45 97 H 16 96 09/11/23 21:30 91/51 L 09/11/23 21:30 103 H 17 94 09/11/23 21:23 94/64 L 09/11/23 21:23 108 H 19 96 09/11/23 21:16 108 H 17 95 09/11/23 21:16 69/33 L 09/11/23 21:05 113 H 20 98 09/11/23 21:05 86/54 L 09/11/23 21:01 113 H 20 99 09/11/23 21:01 84/48 L 09/11/23 21:00 114 H 19 97 09/11/23 20:46 107/58 L 09/11/23 20:46 115 H 24 100 09/11/23 20:31 143/56 H 09/11/23 20:31 103 H 23 91 09/11/23 20:27 99 H 22 88 L 09/11/23 20:27 163/62 H 09/11/23 20:17 138/55 L 09/11/23 20:17 80 20 98 O2 Flow Rate FiO2 09/12/23 07:38 4 09/12/23 07:25 30 09/12/23 05:01 09/12/23 05:01 09/12/23 04:01 09/12/23 04:01 09/12/23 04:01 09/12/23 03:54 09/12/23 03:46 09/12/23 03:46 09/12/23 03:46 09/12/23 03:45 30 09/12/23 03:31 09/12/23 03:31 09/12/23 03:16 09/12/23 03:16 09/12/23 03:00 09/12/23 03:00 09/12/23 03:00 40 09/12/23 02:46 09/12/23 02:46 09/12/23 02:30 09/12/23 02:30 09/12/23 02:16 09/12/23 02:16 09/12/23 02:01 09/12/23 02:00 09/12/23 01:45 09/12/23 01:45 09/12/23 01:30 09/12/23 01:30 09/12/23 01:16 09/12/23 01:16 09/12/23 01:00 09/12/23 01:00 09/12/23 00:45 09/12/23 00:45 09/12/23 00:42 09/12/23 00:41 09/12/23 00:00 09/12/23 00:00 09/12/23 00:00 09/11/23 23:50 40 09/11/23 23:45 09/11/23 23:45 09/11/23 23:30 09/11/23 23:30 09/11/23 23:16 09/11/23 23:16 09/11/23 23:00 09/11/23 23:00 09/11/23 23:00 40 09/11/23 22:45 09/11/23 22:45 09/11/23 22:30 09/11/23 22:30 09/11/23 22:15 09/11/23 22:15 09/11/23 22:00 09/11/23 22:00 09/11/23 21:45 09/11/23 21:45 09/11/23 21:30 09/11/23 21:30 09/11/23 21:23 09/11/23 21:23 09/11/23 21:16 09/11/23 21:16 09/11/23 21:05 09/11/23 21:05 09/11/23 21:01 09/11/23 21:01 09/11/23 21:00 09/11/23 20:46 09/11/23 20:46 09/11/23 20:31 09/11/23 20:31 09/11/23 20:27 09/11/23 20:27 09/11/23 20:17 09/11/23 20:17 Lab & Micro Results (Past 24 Hours) RBC 4.61 M/uL (4.20-5.40) 09/12/23 WBC 12.43 K/ul (4.8-10.8) H 09/12/23 Hgb 13.5 g/dl (12.0-16.0) 09/12/23 Hct 39.9 % (37.0-47.0) 09/12/23 MCV 86.6 fL (80.0-100.0) 09/12/23 MCH 29.3 pg (25.0-34.0) 09/12/23 MCHC 33.8 g/dL (32.0-36.0) 09/12/23 RDW Standard Deviation 42.4 fL (36.4-46.3) 09/12/23 RDW Coefficient of Variation 13.4 % (11.5-14.5) 09/12/23 Plt Count 215 K/uL (130-400) 09/12/23 MPV 10.7 fL (9.4-12.4) 09/12/23 Neutrophils (%) (Auto) 69.0 % 09/12/23 Lymphocytes (%) (Auto) 14.4 % 09/12/23 Monocytes # (Auto) 1.68 K/uL (0.11-0.59) H 09/12/23 Eosinophils # (Auto) 0.26 K/uL (0.00-0.50) 09/12/23 Immature Granulocyte % (Auto) 0.4 % 09/12/23 Neutrophils # (Auto) 8.57 K/uL (1.40-6.50) H 09/12/23 Lymphocytes # (Auto) 1.79 K/uL (1.20-3.40) 09/12/23 Monocytes # (Auto) 1.68 K/uL (0.11-0.59) H 09/12/23 Eosinophils # (Auto) 0.26 K/uL (0.00-0.50) 09/12/23 Basophils # (Auto) 0.08 K/uL (0.00-0.20) 09/12/23 Immature Granulocyte # (Auto) 0.05 K/uL (0.01-0.20) 4 Na 129 mmol/L (136-145) L 09/12/23 K 3.0 mmol/L (3.5-5.1) L 09/12/23 Cl 97 mmol/L (98-107) L 09/12/23 CO2 23 mmol/L (21-32) 09/12/23 Anion Gap 9 (3-11) 09/12/23 BUN 22 mg/dl (6-23) 09/12/23 Creatinine 0.98 mg/dl (0.6-1.2) 09/12/23 Estimated GFR ( Amer) 63.1 ml/min 09/12/23 Estimated GFR (Non-Af Amer) 54.5 ml/min 09/12/23 BUN/Creatinine Ratio 22.4 (10-20) H 09/12/23 Glu 163 mg/dl (70-99(Fasting)) H 09/12/23 Ca 8.4 mg/dl (8.6-10.3) L 09/12/23 Phosphorus Level 2.6 mg/dl (2.5-4.9) 09/12/23 Albumin 2.9 gm/dl (3.4-5.0) L 09/12/23 Mg 1.6 mg/dl (1.7-2.4) L 09/12/23 04:38 Calcium Level 8.4 mg/dl (8.6-10.3) L 09/12/23 04:38 Microbiology 09/11/23 07:07 Aerobic Blood Culture - Preliminary Blood No growth in Aerobic bottle after 24 hours. 09/11/23 07:02 Aerobic Blood Culture - Preliminary Blood No growth in Aerobic bottle after 24 hours. Diagnostic Findings (Past 24 Hours) Chest CTA 09/11/23 05:15 Exam(s): CTA CHEST IV Amt: 120 cc's optiray 320 EXAM: CT Angiography Chest With Intravenous Contrast CLINICAL HISTORY: Reason for exam: hypoxic respiratory failure. TECHNIQUE: Axial computed tomographic angiography images of the chest with intravenous contrast. CTDI is 37.49 mGy and DLP is 1126.14 mGy-cm. Automated exposure control was utilized for the study. A dose lowering technique was utilized adhering to the principles of ALARA. MIP reconstructed images were created and reviewed. COMPARISON: No relevant prior studies available. FINDINGS: Pulmonary arteries: Unremarkable. No pulmonary embolism. Aorta: No acute findings. No thoracic aortic aneurysm. Lungs: Bilateral multifocal pulmonary consolidations are seen. Scattered inflammatory groundglass densities also seen scattered in bilateral lungs. Pleural space: Small right pleural effusion fusion. No pneumothorax. Heart: Mild coronary vascular calcifications are seen. Mitral annular calcifications are seen. No cardiomegaly. No significant pericardial effusion. No evidence of RV dysfunction. Bones/joints: No acute fracture. No dislocation. Moderate degenerative disc disease changes are seen. Lymph nodes: Unremarkable. No enlarged lymph nodes. Gallbladder and bile ducts: There are multiple dependent gallstones. IMPRESSION: 1. Bilateral multifocal pneumonia 2. No acute pulmonary embolism 3. Small right pleural effusion Electronically signed by: David Fuller MD 09/11/23 08:52 AM Chest X-Ray 09/12/23 05:00 XR chest 1V portable HISTORY: 78 years-old Female evalt ETT/OGT/lung [place] acute respiratory failure COMPARISON: CT chest 09/11/2023 TECHNIQUE: AP view of the chest FINDINGS: Endotracheal tube overlies the midline, 3.9 cm superior to the heidy. Enteric tube courses into the stomach. Atherosclerosis of the aorta. Mild right hemidiaphragmatic elevation. Cardiomegaly. Patchy bilateral mixed interstitial and alveolar testes. No pneumothorax or large pleural effusion. Bones appear grossly intact. IMPRESSION: 1. Endotracheal and enteric tube placement as above. 2. Multifocal mixed interstitial and alveolar opacities suggestive of pneumonia. 3. No pneumothorax. ACT 112: Negative or not required by law. The above report was generated using voice recognition software. It may contain grammatical, syntax or spelling errors. Electronically signed by: Brayan Natarajan M.D. 09/12/2023 7:58 AM I & O Totals 24 Hours 09/11/23 09/12/23 09/13/23 06:59 06:59 06:59 Intake Total 2341.167 / 2341.167 2456.168 / 2456.168 285.786 / 285.786 Output Total 1150 / 1150 990 / 990 Balance 1191.167 / 9855.271 6036.168 / 1466.168 285.786 / 285.786 Cumulative 09/09/23 17:32 thru 09/12/23 08:08 Intake Total 6583.121 Output Total 2140 Balance 4443.121 RT Ventilator Mngmt (Last Documented) Ventilator Ordered Settings Ventilator Support Mode CPAP 09/12/23 07:25 Respiratory Rate 18 09/12/23 07:38 Ventilator Tidal Volume 400 09/12/23 03:45 Setting Minute Ventilation 6.8 09/12/23 03:45 Ventilator Positive Pressure 10 09/12/23 07:25 Support Setting Positive End Expiratory 3 09/12/23 07:25 Pressure Fraction of Inspired Oxygen 30 09/12/23 07:25 Ventilator - PT Measurements Respiratory Rate 18 Exhaled Tidal Volume 389 Minute Ventilation 6.8 Peak Inspiratory Airway 24 Pressure Plateau Pressure 20 Respiratory Cycle Inspiratory: 1:3.2 Expiratory Ratio Inspiratory Phase Time 0.9 End-Tidal CO2 34 Static Lung Compliance 33.33 Dynamic Lung Compliance 25.00 Normal Static Lung Compliance 46.00 Patient Measurements Comment Patient found on SBT at this time, patient extubated to 4L Oxymask per verbal orders from Dr. Gee from RN Tatiana. Coding Level of Care Code 67620 CRITICAL CARE 1ST 30-74M Diagnoses Respiratory failure J96.90 Required emergent intubation Z98.890 Infection due to parainfluenza virus 3 B34.8 Generalized weakness R53.1 Hypertension I10 Dyslipidemia E78.5 CAD (coronary artery disease) I25.10 Aortic valve sclerosis I35.8 Intravenous infiltration, initial encounter T80.1XXA Encounter type: initial encounter (9) IV infiltration Encounter type: initial encounter Qualified Code(s): T80.1XXA - Vascular complications following infusion, transfusion and therapeutic injection, initial encounter
[2023-09-12] MEDS: POTASSIUM CHLORIDE / WTR 10 MEQ/100 ML PLCT IV SCH (08:52)
[2023-09-12] MEDS: ENOXAPARIN 100 MG/1ML SYR SQ SCH ×2 (08:52→19:54)
[2023-09-12] MEDS: FUROSEMIDE 40 MG/4 ML VIAL IV ONE (08:52)
[2023-09-12] MEDS: POTASSIUM ACETATE/NSS 10 MEQ/105 ML BAG IV SCH (09:35)
--- NOTE | 2023-09-12 12:20 | Cardiology Consultation ---
Date of Consultation September 12, 2023 Assessment & Plan (1) Hypotension: (2) Elevated troponin: (3) Cardiomyopathy: (4) CAD (coronary artery disease): (5) Respiratory failure: (6) Infection due to parainfluenza virus 3: Plan 78-year-old woman with CAD (remote stenting) but previously normal LV systolic function and wall motion admitted with nonspecific symptoms and parainfluenza, had respiratory arrest with hypotension and was briefly intubated/mechanically ventilated but remains on vasopressor therapy. As noted, echo showed wall motion abnormalities and decrease in systolic function and troponin was elevated, ECG uninterpretable due to left bundle branch block. No indication of chest pain at any time and troponin levels are declining, therefore no role for immediate intervention. Volume status appears reasonable, chest x-ray does not show significant pulmonary edema Suspect element of stress-induced cardiomyopathy, will check limited follow-up echocardiogram tomorrow. Continue on aspirin and enoxaparin, further recommendations based upon her echo tomorrow. In the interim, continue supportive care. History of Present Illness Reason for Consultation: NSTEMI, new regional wall abnormalities, sepsis Requesting Physician: Edgardo Gee DO Attending Physician: Joey Bravo MD History of Present Illness 78-year-old woman with CAD (OZZIE RCA and LAD 2009), carotid disease (50-60% bilateral stenosis), TIA 2017, chronic left bundle branch block, who was admitted 09/09/2023 with generalized weakness and noted to be parainfluenza positive, she subsequently had hemodynamic and respiratory collapse requiring vasopressor support and intubation/mechanical ventilation and was noted to have an elevated troponin and no wall motion abnormalities. Please see Dr. Adair's 08/11/2023 office visit note for details of her prior cardiac workup. Briefly, subsequent to her coronary interventions in 2009 stress studies have been negative and echocardiograms have shown normal LV systolic function and wall motion, she does have a sclerotic aortic valve without major stenosis. After uneventful initial night, patient developed respiratory distress with marked hypertension but no complaint of chest pain, due to hypercarbia/hypoxia she was transferred to the ICU and intubated and ultimately required norepinephrine for vasopressor support. Initially normal troponin peaked at 1217 yesterday and dropped to 666 later in the day. Echocardiogram showed EF 30 to 35% with septal and inferior akinesis and moderate global hypokinesis. ECG showed sinus rhythm with left bundle branch block (chronic). Patient was extubated earlier this morning and is somnolent but readily arousable, she denies any chest pain. Hemodynamics stable on vasopressor support. Rhythm remains sinus. Allergies Allergy/AdvReac Type Severity Reaction Status Date / Time Sulfa (Sulfonamide Allergy Intermediate Hives Unverified 09/10/23 10:32 Antibiotics) Home Medications Medication Instructions Recorded Confirmed Type cholecalciferol (vitamin D3) 125 125 mcg PO DAILY 01/05/23 09/10/23 History mcg (5,000 unit) capsule simvastatin 40 mg tablet 40 mg PO DAILY 01/05/23 09/10/23 History spironolactone 25 mg tablet 25 mg PO DAILY 01/05/23 09/10/23 History aspirin 81 mg tablet,delayed 81 mg PO DAILY 01/06/23 09/10/23 History release levothyroxine 100 mcg tablet 100 mcg PO DAILY #40 tabs 01/20/23 09/10/23 Rx docusate sodium 100 mg capsule 100 mg PO BID 09/10/23 09/10/23 History (Colace) metoprolol succinate 50 mg 25 mg PO DAILY 09/10/23 09/10/23 History tablet,extended release 24 hr Patient History Medical History (Updated 09/12/23 @ 12:19 by Glenn Taylor MD) Orthostasis Accidental fall LBBB (left bundle branch block) TIA (transient ischemic attack) Sleep apnea Surgical History (Updated 09/12/23 @ 12:18 by Glenn Taylor MD) History of knee joint replacement Social History Smoking Status: Never smoker Hx Alcohol Use: No Hx Substance Use: No Preferred Language: Czech Communication Ability: Effective Statue Maker Required: No Beliefs That Will Affect Care: None Current Living Situation: Family Other Information That Helps Us Care for You: No Feels Safe at Home: Yes Safety Concerns: Feels Safe At This Time Assistive Devices: Walker and Wheelchair Physical Exam Physical Exam: No acute distress. BP 103/49 mmHg on norepinephrine. Pulse 99 bpm and regular. Skin: no ecchymoses or generalized lesions. HEENT: unremarkable. Neck: JVP moderately elevated, no obvious carotid bruits. Lungs: Moderately decreased breath sounds with scattered rhonchi but generally clear. No accessory muscle use. Cardiac: regular rhythm, normal S1-2, no murmur on limited exam. Abdomen: benign. Extremities: no edema, pulses intact. Neurologic: Somnolent but arousable, answers simple questions, nonfocal. Results & Data Laboratory Results WBC 12.43, normal hemoglobin. Sodium 129, potassium 3.0, BUN 22, creatinine 0.98. Troponins as noted in HPI. Albumin 2.9. Diagnostic Findings ECG yesterday showed sinus rhythm with left bundle branch block. Telemetry shows sinus rhythm. Chest x-ray showed multifocal interstitial and alveolar opacities suggestive of pneumonia. PG Care Time/CCT Total # of Minutes Spent Total Time Spent with Patient: Total time spent is greater than 50% in coordination of care (as documented) at patient's floor/unit and/or counseling patient: Coding Level of Care Code 36739 IN/OBS CONSULT LVL 4,60M Diagnoses Hypotension I95.9 Elevated troponin R79.89 Cardiomyopathy I42.9 CAD (coronary artery disease) I25.10 Respiratory failure J96.90 Infection due to parainfluenza virus 3 B34.8
[2023-09-12] MEDS: ASPIRIN 81 MG CHEW PO ONE (15:44)
[2023-09-12] MEDS: SODIUM CHLORIDE 0.65% NA SOLN 45 ML (OCEAN) STA (16:39)
[2023-09-12] MEDS: SODIUM CHLORIDE 0.65% NA SOLN 45 ML (OCEAN) ONE (16:40)
[2023-09-13 04:54] LABS: Basophils # (auto) 0.06 K/uL (0.00-0.20); Basophils % (auto) 0.6 %; Eosinophils # (auto) 0.11 K/uL (0.00-0.50); Eosinophils % (auto) 1.1 %; Hematocrit (blood only) 36.4 % (37.0-47.0); Hemoglobin 12.3 g/dl (12.0-16.0); Immature Granulocytes # (auto) 0.06 K/uL (0.01-0.20); Immature Granulocytes % (auto) 0.6 %; Lymphocytes # (auto) 1.53 K/uL (1.20-3.40); Lymphocytes % (auto) 15.8 %; Mean Corpuscular Hgb Conc 33.8 g/dL (32.0-36.0); Mean Corpuscular Volume 85.8 fL (80.0-100.0); Mean Platelet Volume 10.9 fL (9.4-12.4); Monocytes % (auto) 11.3 %; Neutrophils # (auto) 6.84 K/uL (1.40-6.50); Neutrophils % (auto) 70.6 %; Platelet Count 200 K/uL (130-400); RDW Coefficient of Variation 13.3 % (11.5-14.5); RDW Standard Deviation 41.8 fL (36.4-46.3); Red Blood Count 4.24 M/uL (4.20-5.40)
[2023-09-13 05:24] LABS: BUN Creatinine Ratio 20.7 (10-20); Calcium 8.5 mg/dl (8.6-10.3); Creatinine Clr Calc Pharmacy 59.3 ml/min; Est GFR (African American) 72.9 ml/min; Est GFR (Non-African American) 62.9 ml/min; Magnesium 1.8 mg/dl (1.7-2.4); Phosphorus 1.9 mg/dl (2.5-4.9); Potassium 3.4 mmol/L (3.5-5.1)
--- NOTE | 2023-09-13 06:47 | Hospitalist Progress Note ---
"Date of Service September 13, 2023 Assessment & Plan (1) Infection due to parainfluenza virus 3: (2) Flu-like symptoms: (3) Hypertension: (4) Dyslipidemia: (5) CAD (coronary artery disease): Plan 78 year-old female with a past medical history of CAD, LBBB, HTN, dyslipidemia who presented to the hospital for weakness and related ground level fall: Hypoxic/Hypercarbic Respiratory Failure (resolved), Parainfluenza -Respiratory panel positive for parainfluenza 3 virus -Patient transferred to ICU 09/10 after rapid decompensation characterized by heightened oxygen demand, tachypnea, new onset fevers -Successfully extubated on 09/11, currently on room air -?secondary bacterial pneumonia vs pulmonary edema, ongoing fevers possibly favors infection, continue Zosyn + Azithromycin, blood cultures negative at 48 hours -Continue albuterol and budesonide nebs Elevated HsCTNI, CAD, Aortic sclerosis, HTN, HLD - TTE 09/10 significant for reduced LVEF of 30-35% and LV wall motion abnormalities - Repeat TTE 09/12 with improvement in LVEF 45-50%, mild global hypokinesis, RV dilation/moderately reduced RV function - Cardiology consulted, impression favors stress induced cardiomyopathy/demand ischemia rather than acute thrombotic event but can be further evaluated as outpatient - Continue full dose Lovenox at this time - Unclear etiology for RV dysfunction, repeat evaluation as outpatient - Currently off pressors, continue to monitor Weakness | Ground level fall -S/p Ground level fall at home, normally uses walker for ambulation at baseline -Suspect some deconditioning from current viral illness -PT, OT evaluations ordered, appreciate recs when patient can be feasibly assessed -CM following for dispo planning ICU Diet: NPO VTE prophylaxis: Lovenox Code Status: Full Code Admission and Anticipated Discharge Date Admission Date: September 09, 2023 Supervising Physician Co-Signing Physician Notes I personally examined the patient and verified all calvo points of history and exam, discussed case, and agree with decision making with Dr Goldstein Able to sit on the edge of the bed, breathing without ventilator, pressors have been weaned. Fatigued but no overt complaints. Vitals noted, in general she is very fatigued but surprisingly conversational. Lungs are coarse throughout, no accessory muscle use good effort. Skin without rashes pallor or icterus. Neuro without focal deficits. Acute hypoxic respiratory failure in the setting of Parainfluenza with concern for PNA, fluid overload during resuscitation - Improving, off of ventilator, continue supportive care, continue to treat all underlying causes. Fluid overload w/ reduced EF on echocardiogram - continue diuresis with Cr monitoring. EF improvedlikely stress cardiomyopathy. Hypotension - Now off of pressors otherwise as above Subjective Patient evaluated at bedside this morning, visibly fatigued but more alert today, no longer on supplemental oxygen. Patient notes primary symptom of concern is weakness/fatigue, denies significant shortness of breath, denies chills. Review of Systems Review of Systems: as per HPI Physical Exam Physical Exam: General: Frail appearing, resting comfortably in bed, NAD Cardio: regular rate, regular rhythm Resp: Diffusely coarse breath sounds bilaterally Results & Data Results & Data Vital Signs (Past 12 Hours) Vital Signs Temp Pulse Pulse Resp BP Pulse Ox O2 Del Method 09/13/23 04:01 38.0 C H 95 H 22 91 09/13/23 04:01 114/45 L 09/13/23 04:00 38.1 C H 93 H 28 H 94 09/13/23 03:31 38.1 C H 97 H 27 H 90 09/13/23 03:31 112/50 L 09/13/23 03:01 107/45 L 09/13/23 03:01 38.2 C H 97 H 29 H 89 L 09/13/23 03:00 38.2 C H 97 H 27 H 92 09/13/23 02:31 38.3 C H 104 H 19 96 09/13/23 02:31 101/69 09/13/23 02:00 38.3 C H 92 H 24 100 09/13/23 02:00 136/54 L 09/13/23 01:52 96 H 18 95 Room Air 09/13/23 01:31 105/46 L 09/13/23 01:31 38.4 C H 98 H 27 H 91 09/13/23 01:01 104/51 L 09/13/23 01:01 38.4 C H 106 H 22 89 L 09/13/23 01:00 38.4 C H 106 H 25 H 91 09/13/23 00:31 104/43 L 09/13/23 00:31 38.4 C H 98 H 22 92 05/20/24 00:01 108/54 L 09/13/23 00:01 38.4 C H 104 H 26 H 89 L 09/13/23 00:00 38.4 C H 96 H 27 H 91 09/12/23 23:31 107/47 L 09/12/23 23:31 38.3 C H 101 H 27 H 92 09/12/23 23:01 38.4 C H 101 H 27 H 91 09/12/23 23:01 113/48 L 09/12/23 23:00 38.3 C H 103 H 25 H 92 09/12/23 22:31 108/51 L 09/12/23 22:31 38.3 C H 106 H 22 95 09/12/23 22:01 97/53 L 09/12/23 22:01 38.3 C H 106 H 21 94 09/12/23 22:00 38.3 C H 108 H 22 93 09/12/23 21:31 38.3 C H 107 H 23 93 09/12/23 21:31 105/48 L 09/12/23 21:01 104/68 09/12/23 21:01 38.2 C H 106 H 21 90 09/12/23 21:00 38.2 C H 106 H 22 90 09/12/23 20:31 108/54 L 09/12/23 20:31 38.2 C H 104 H 26 H 89 L 09/12/23 20:15 115/57 L 09/12/23 20:15 38.2 C H 104 H 23 91 09/12/23 20:00 103/55 L 09/12/23 20:00 38.2 C H 103 H 20 92 09/12/23 20:00 Room Air 09/12/23 19:45 99/45 L 09/12/23 19:45 38.2 C H 99 H 22 100 09/12/23 19:33 98 H 21 100 Oxymask 09/12/23 19:31 91/54 L 09/12/23 19:31 38.2 C H 99 H 25 H 100 09/12/23 19:15 109/57 L 09/12/23 19:15 38.2 C H 97 H 24 100 09/12/23 19:01 38.2 C H 97 H 29 H 100 Oxymask 09/12/23 19:01 102/53 L 09/12/23 19:00 38.2 C H 99 H 19 100 Oxymask O2 Flow Rate 09/13/23 04:01 09/13/23 04:01 09/13/23 04:00 09/13/23 03:31 09/13/23 03:31 09/13/23 03:01 09/13/23 03:01 09/13/23 03:00 09/13/23 02:31 09/13/23 02:31 09/13/23 02:00 09/13/23 02:00 09/13/23 01:52 09/13/23 01:31 09/13/23 01:31 09/13/23 01:01 09/13/23 01:01 09/13/23 01:00 09/13/23 00:31 09/13/23 00:31 09/13/23 00:01 09/13/23 00:01 09/13/23 00:00 09/12/23 23:31 09/12/23 23:31 09/12/23 23:01 09/12/23 23:01 09/12/23 23:00 09/12/23 22:31 09/12/23 22:31 09/12/23 22:01 09/12/23 22:01 09/12/23 22:00 09/12/23 21:31 09/12/23 21:31 09/12/23 21:01 09/12/23 21:01 09/12/23 21:00 09/12/23 20:31 09/12/23 20:31 09/12/23 20:15 09/12/23 20:15 09/12/23 20:00 09/12/23 20:00 09/12/23 20:00 09/12/23 19:45 09/12/23 19:45 09/12/23 19:33 1 09/12/23 19:31 09/12/23 19:31 09/12/23 19:15 09/12/23 19:15 09/12/23 19:01 2 09/12/23 19:01 09/12/23 19:00 2 Resident Activity Tracking Resident Involvement: Resident Care Provided Care Provided: Adult Hospital Medicine"
--- NOTE | 2023-09-13 08:09 | XCELERA ---
[id number] \\[id number]
--- NOTE | 2023-09-13 08:53 | Critical Care Progress Note ---
Date of Service September 13, 2023 Assessment & Plan (1) Respiratory failure: (2) Required emergent intubation: (3) Infection due to parainfluenza virus 3: (4) Generalized weakness: (5) Hypertension: (6) Dyslipidemia: (7) CAD (coronary artery disease): (8) Aortic valve sclerosis: (9) IV infiltration: Plan Reason Critically Ill: 78-year-old female presenting to the ICU with hypoxic and hypercarbic respiratory failure requiring mechanical ventilation as well as vasopressor support. She was extubated yesterday and has been saturating well on room air at this time. She continues to require small amount of vasopressor support at this time. RECOMMENDATIONS: 1. Respiratory failure with hypoxia and hypercapnia - Resolved at this time. Concern for viral contribution versus pulmonary edema. Regardless, the patient was liberated from the ventilator yesterday and is saturating well on room air only. There was concern for possible aspiration event. Currently on Zosyn. Consideration for de-escalation from Zosyn at this time. Patient does remain persistently febrile, however so consideration for longer duration may be appropriate given her acuity of illness. Continue azithromycin for now. Will consult speech to evaluate prior to reinstitution of oral medications, particularly patient with profound kyphosis and risk for aspiration. 2. Parainfluenza infection - Continue with supportive therapies. Thankfully, the patient has improved from a respiratory standpoint. Please see above. 3. Generalized weakness - In the setting of profound illness with respiratory failure and hypoxia with concerns for aspiration pneumonitis. Engage PT/OT at this time. 4. NSTEMI - Normality appreciated. Transition to therapeutic Lovenox dosing from heparin to decrease upon receiving. Appreciate cardiology recommendations moving forward to pending echocardiogram results and follow-up today. Vasopressor requirement has been down to off at this point. 5. Patient currently n.p.o. status. Will engage [employer] for evaluation and recommendation in the patient with recent respiratory failure and severe kyphosis. Can restart patient's home medications if able. Lines/IV access -PIV x 2. LEFT radial arterial line, Irwin catheter. DC arterial line and Irwin catheters when patient stabilized. Hopefully later today or early tomorrow. DVT prophylaxis -Lovenox subQ I have personally spent 35 minutes of critical care time in the direct management of this patient. This is a life/limb threatening event. This includes time spent evaluating patient, direct bedside care, chart review, placing orders, interpretation of diagnostic studies, discussion with consultants, patient, and family members, as well as other required patient management activities. This time is exclusive of all separately billable procedures, and teaching time and separate from and in addition to any other critical care service time. Thank you for allowing us to participate in the care of this patient. Please refer to my attending physician's documentation for any further recommendations. Admission and Anticipated Discharge Date Admission Date: September 09, 2023 Supervising Physician Co-Signing Physician Notes Seen and examined. MR reviewed imaging independently reviewed. Discussed with off going chief strategy officer as well as with critical care [facility]. Agree with assessment plan as noted. Patient is now off pressors. Will see how she responds. If she remains hemodynamically stable, can likely downgrade out of the ICU in the next 24 hours. Continue conservative management. Continue Lovenox for additional 48 hours. May benefit from diuresis given her RV dilatation. Subjective Patient seen and evaluated at bedside. She reports that she is feeling much better and is breathing easier at this time. She still feels very weak and is without appetite, but offers no complaints otherwise. Overnight events reviewed. Review of Systems Review of Systems: A complete 10 point review of systems was reviewed with the patient with pertinent positives and negatives as per history of present illness. All else were negative. Physical Exam Physical Exam: VITAL SIGNS - Vital signs and nursing notes were reviewed. GENERAL - 78-year-old female appearing her stated age who is in no acute d istress. Communicates well with provider and answers questions appropriately. SKIN - Without rashes. HEAD - NC/AT. EYES - PERRL with EOMI bilaterally. Sclera anicteric. NOSE - Midline and without cyanosis. MOUTH/OROPHARYNX - Without perioral cyanosis. NECK - Profoundly kyphotic appearing. LUNGS - Kyphosis. Delayed air entry. CARDIAC - RRR with S1/S2. No murmur, rubs, or gallops appreciated. ABDOMEN - Abdominal contour obese without pulsations or visible masses. EXTREMITIES - No clubbing or peripheral cyanosis. No pretibial edema present. +3/5 radial pulses palpated throughout. NEUROLOGIC - Cranial nerves II through XII grossly intact. PSYCH - A&Ox3 and cooperates fully with examiner. Results & Data Results & Data Vital Signs (Past 12 Hours) Vital Signs Temp Pulse Pulse Resp BP Pulse Ox O2 Del Method 09/13/23 07:50 75 27 H Room Air 09/13/23 04:01 38.0 C H 95 H 22 91 09/13/23 04:01 114/45 L 09/13/23 04:00 38.1 C H 93 H 28 H 94 09/13/23 03:31 38.1 C H 97 H 27 H 90 09/13/23 03:31 112/50 L 09/13/23 03:01 107/45 L 09/13/23 03:01 38.2 C H 97 H 29 H 89 L 09/13/23 03:00 38.2 C H 97 H 27 H 92 09/13/23 02:31 38.3 C H 104 H 19 96 09/13/23 02:31 101/69 09/13/23 02:00 38.3 C H 92 H 24 100 09/13/23 02:00 136/54 L 09/13/23 01:52 96 H 18 95 Room Air 09/13/23 01:31 105/46 L 09/13/23 01:31 38.4 C H 98 H 27 H 91 09/13/23 01:01 104/51 L 09/13/23 01:01 38.4 C H 106 H 22 89 L 09/13/23 01:00 38.4 C H 106 H 25 H 91 09/13/23 00:31 104/43 L 09/13/23 00:31 38.4 C H 98 H 22 92 09/13/23 00:01 108/54 L 09/13/23 00:01 38.4 C H 104 H 26 H 89 L 09/13/23 00:00 38.4 C H 96 H 27 H 91 09/12/23 23:31 107/47 L 09/12/23 23:31 38.3 C H 101 H 27 H 92 09/12/23 23:01 38.4 C H 101 H 27 H 91 09/12/23 23:01 113/48 L 09/12/23 23:00 38.3 C H 103 H 25 H 92 09/12/23 22:31 108/51 L 09/12/23 22:31 38.3 C H 106 H 22 95 09/12/23 22:01 97/53 L 09/12/23 22:01 38.3 C H 106 H 21 94 09/12/23 22:00 38.3 C H 108 H 22 93 09/12/23 21:31 38.3 C H 107 H 23 93 09/12/23 21:31 105/48 L 09/12/23 21:01 104/68 09/12/23 21:01 38.2 C H 106 H 21 90 09/12/23 21:00 38.2 C H 106 H 22 90 FiO2 09/13/23 07:50 89 09/13/23 04:01 09/13/23 04:01 09/13/23 04:00 09/13/23 03:31 09/13/23 03:31 09/13/23 03:01 09/13/23 03:01 09/13/23 03:00 09/13/23 02:31 09/13/23 02:31 09/13/23 02:00 09/13/23 02:00 09/13/23 01:52 09/13/23 01:31 09/13/23 01:31 09/13/23 01:01 09/13/23 01:01 09/13/23 01:00 09/13/23 00:31 09/13/23 00:31 09/13/23 00:01 09/13/23 00:01 09/13/23 00:00 09/12/23 23:31 09/12/23 23:31 09/12/23 23:01 09/12/23 23:01 09/12/23 23:00 09/12/23 22:31 09/12/23 22:31 09/12/23 22:01 09/12/23 22:01 09/12/23 22:00 09/12/23 21:31 09/12/23 21:31 09/12/23 21:01 09/12/23 21:01 09/12/23 21:00 Coding Level of Care Code 56253 CRITICAL CARE 1ST 30-74M Diagnoses Respiratory failure J96.90 Required emergent intubation Z98.890 Infection due to parainfluenza virus 3 B34.8 Generalized weakness R53.1 Hypertension I10 Dyslipidemia E78.5 CAD (coronary artery disease) I25.10 Aortic valve sclerosis I35.8 Intravenous infiltration, initial encounter T80.1XXA Encounter type: initial encounter (9) IV infiltration Encounter type: initial encounter Qualified Code(s): T80.1XXA - Vascular complications following infusion, transfusion and therapeutic injection, initial encounter
[2023-09-13] MEDS ORDERED: POTASSIUM PHOS 3 MMOL/1 ML INFUSION IV STA (10:59)
--- NOTE | 2023-09-13 12:16 | Cardiology Progress Note ---
Date of Service September 13, 2023 Assessment & Plan (1) Respiratory failure: (2) Cardiomyopathy: (3) Elevated troponin: (4) CAD (coronary artery disease): (5) Infection due to parainfluenza virus 3: Plan Improving overall, off pressors and respiratory status stable off mechanical ventilation. Echocardiogram shows improved LV systolic function with resolution of wall motion abnormalities, suggesting her elevated troponin was demand ischemia rather than secondary to acute thrombotic event. Nonetheless, she has known underlying coronary artery disease and it would be reasonable to continue enoxaparin at full dose for 48 to 72 hours (until this evening or tomorrow evening). Similarly, in the absence of bleeding issues, would continue aspirin for her underlying CAD. Etiology of right heart dilation/dysfunction is unclear, she has no pulmonary history and was not a smoker. Most likely, this is secondary to increased pulmonary vascular resistance related to her underlying pneumonia. Continue supportive pulmonary care with repeat evaluation of right ventricular status as an outpatient after she has recovered from her acute pulmonary infection. Volume status appears reasonable. No dysrhythmias. Admission and Anticipated Discharge Date Admission Date: September 09, 2023 Subjective Uneventful night. Weaned off pressors, awake and alert with no somatic complaints. Denies chest pain, dyspnea, palpitations, or lightheadedness. Limited follow-up echocardiogram showed EF 45 to 50% with mild global hypokinesis, evidence of right heart pressure/volume overload with moderate to severe RV dilation and moderately reduced RV function. Compared with study from 2 days prior, LV systolic function is moderately improved and focal wall motion of Meiser no longer seen, dilated right heart with reduced contractile function now seen (likely due to better imaging quality) Telemetry shows sinus rhythm without significant dysrhythmia. Physical Exam Physical Exam: No acute distress. Mild persistent fever (Tmax 101.1) BP 114/45 mmHg. Pulse 75 bpm and regular. Respirations 27 but unlabored. Skin: no ecchymoses or generalized lesions. HEENT: unremarkable. Neck: JVP not obviously elevated, no obvious carotid bruits. Lungs: Moderately decreased breath sounds with scattered rhonchi but generally clear. No accessory muscle use. Cardiac: regular rhythm, normal S1-2, no murmur.. Abdomen: benign. Extremities: no edema, pulses intact. Neurologic: Normal affect and conversation, nonfocal. Results & Data Laboratory Results Sodium 134, potassium 3.4, BUN 18, creatinine 0.87. PG Care Time/CCT Total # of Minutes Spent Total Time Spent with Patient: Total time spent is greater than 50% in coordination of care (as documented) at patient's floor/unit and/or counseling patient: Coding Level of Care Code 62777 SUB INP/OBS CARE 3/50MIN Diagnoses Respiratory failure J96.90 Cardiomyopathy I42.9 Elevated troponin R79.89 CAD (coronary artery disease) I25.10 Infection due to parainfluenza virus 3 B34.8
[2023-09-13] MEDS: POTASSIUM PHOSPHATE 30 MMOL in SODIUM CHLORIDE 0.9% 500 ML IV ONE (12:24)
--- NOTE | 2023-09-13 17:30 | Billing Data ---
Date of Service September 13, 2023 Coding Level of Care Code 32868 SUB INP/OBS CARE
[2023-09-14 05:22] LABS: Basophils # (auto) 0.05 K/uL (0.00-0.20); Basophils % (auto) 0.8 %; Eosinophils # (auto) 0.16 K/uL (0.00-0.50); Eosinophils % (auto) 2.4 %; Hematocrit (blood only) 31.6 % (37.0-47.0); Hemoglobin 10.6 g/dl (12.0-16.0); Immature Granulocytes # (auto) 0.02 K/uL (0.01-0.20); Immature Granulocytes % (auto) 0.3 %; Lymphocytes # (auto) 1.45 K/uL (1.20-3.40); Mean Corpuscular Hemoglobin 29.3 pg (25.0-34.0); Mean Corpuscular Hgb Conc 33.5 g/dL (32.0-36.0); Mean Corpuscular Volume 87.3 fL (80.0-100.0); Mean Platelet Volume 10.6 fL (9.4-12.4); Monocytes # (auto) 0.56 K/uL (0.11-0.59); Monocytes % (auto) 8.5 %; Neutrophils # (auto) 4.36 K/uL (1.40-6.50); Platelet Count 186 K/uL (130-400); RDW Coefficient of Variation 13.2 % (11.5-14.5); RDW Standard Deviation 41.8 fL (36.4-46.3); Red Blood Count 3.62 M/uL (4.20-5.40)
[2023-09-14 05:34] LABS: BUN Creatinine Ratio 23.3 (10-20); Calcium 8.2 mg/dl (8.6-10.3); Creatinine Clr Calc Pharmacy 72.1 ml/min; Est GFR (African American) 90.2 ml/min; Est GFR (Non-African American) 77.8 ml/min; Magnesium 1.9 mg/dl (1.7-2.4); Phosphorus 2.8 mg/dl (2.5-4.9); Potassium 3.6 mmol/L (3.5-5.1)
[2023-09-14] MEDS: POTASSIUM CHLORIDE CRTAB 20 MEQ TABCR PO STA (06:43)
[2023-09-14] MEDS: MAGNESIUM SULFATE / D5W 1 GM/100 ML BAG IV ONE (07:19)
[2023-09-14] MEDS: POTASSIUM CHLORIDE / WTR 10 MEQ/100 ML PLCT IV ONE (07:20)
--- NOTE | 2023-09-14 07:20 | Hospitalist Progress Note ---
"Date of Service September 14, 2023 Assessment & Plan (1) Infection due to parainfluenza virus 3: (2) Flu-like symptoms: (3) Hypertension: (4) Dyslipidemia: (5) CAD (coronary artery disease): Plan 78 year-old female with a past medical history of CAD, LBBB, HTN, dyslipidemia who presented to the hospital for weakness and related ground level fall: Hypoxic/Hypercarbic Respiratory Failure (resolved), Parainfluenza -Respiratory panel positive for parainfluenza 3 virus -Patient transferred to ICU 09/10, intubated and placed on mechanical ventilation, successfully extubated on 09/11, currently stable on room air -Downgraded from ICU 09/13 -?secondary bacterial pneumonia vs pulmonary edema: Given tenuous nature of present clinical picture, will continue Zosyn and Azithromycin for another day - patient afebrile, WBC count downtrending, blood cultures negative, but AM procal elevated from previous - will repeat AM procal and consider scaling back on abx. -Continue albuterol and budesonide nebs -Speech consulted for swallow evaluation given aspiration risk - diet resumed today Elevated HsCTNI, CAD, Aortic sclerosis, HTN, HLD - TTE 09/10 significant for reduced LVEF of 30-35% and LV wall motion abnormalities - Repeat TTE 09/12 with improvement in LVEF 45-50%, mild global hypokinesis, RV dilation/moderately reduced RV function - Cardiology consulted, impression favors stress induced cardiomyopathy/demand ischemia rather than acute thrombotic event but can be further evaluated as outpatient - Continue full dose Lovenox until tomorrow - Unclear etiology for RV dysfunction, repeat echo as an outpatient - Patient free from pressor support for >24 hours prior to discharge Weakness | Ground level fall -S/p Ground level fall at home, normally uses walker for ambulation at baseline -Suspect some deconditioning from current viral illness -PT, OT evaluations ordered, recommending rehab when stable for discharge -CM following for dispo planning PCU/Tele Diet: HH, CC VTE prophylaxis: Lovenox Code Status: Full Code Admission and Anticipated Discharge Date Admission Date: September 09, 2023 Supervising Physician Co-Signing Physician Notes I personally examined the patient and verified all calvo points of history and exam, discussed case, and agree with decision making with Dr Triston devi she's feeling better each day. was starting a phone call when i entered, she noted she was feeling better, and then noted that she was happy that her call she was making was ringing Vitals noted, in general less fatgiued nad. breathing unlabored, no accessory muscle use good effort. Skin without rashes pallor or icterus. Neuro without focal deficits. Acute hypoxic respiratory failure in the setting of Parainfluenza with concern for PNA, fluid overload during resuscitation - Improving, now several days off of ventilator, continue supportive care, continue to treat all underlying causes. -- continue broad abx for now follow into tomorrow Fluid overload w/ reduced EF on echocardiogram - continue diuresis with Cr monitoring. EF improvedlikely stress cardiomyopathy. Hypotension - Now off of pressors for quite a while PT/OT eval and treat otherwise as above Subjective Pt evaluated at bedside this morning, noticeably more alert. Patient denies SOB, denies fever/chills, primary sx of concern continues to be weakness. Review of Systems Review of Systems: as per HPI Physical Exam Physical Exam: General: Frail appearing, resting comfortably in bed, NAD Cardio: regular rate, regular rhythm Resp: Diffusely coarse breath sounds bilaterally Psych: mood affect congruence Results & Data Results & Data Vital Signs (Past 12 Hours) Vital Signs Temp Pulse Pulse Resp Pulse Ox O2 Del Method O2 Flow Rate 09/14/23 06:58 68 20 100 Oxymask 1 09/14/23 05:00 37.0 C 68 13 100 09/14/23 04:00 37.0 C 70 21 100 09/14/23 03:00 37.0 C 76 23 95 09/14/23 02:00 37.0 C 80 21 98 09/14/23 01:03 89 18 100 Oxymask 2 09/14/23 01:00 37.2 C 71 21 99 09/14/23 00:00 37.3 C 73 7 L 98 09/13/23 23:00 37.4 C 76 22 99 09/13/23 22:00 37.5 C 80 24 98 09/13/23 21:00 37.5 C 86 24 97 09/13/23 20:00 37.6 C H 76 12 100 09/13/23 20:00 Oxymask Resident Activity Tracking Resident Involvement: Resident Care Provided Care Provided: Adult [facility] Medicine"
--- NOTE | 2023-09-14 07:37 | Critical Care Progress Note ---
Date of Service September 14, 2023 Assessment & Plan (1) Respiratory failure: (2) Required emergent intubation: (3) Infection due to parainfluenza virus 3: (4) Generalized weakness: (5) Hypertension: (6) Dyslipidemia: (7) CAD (coronary artery disease): (8) Aortic valve sclerosis: (9) IV infiltration: Plan Reason Critically Ill: 78-year-old female presenting to the ICU with hypoxic and hypercarbic respiratory failure requiring mechanical ventilation as well as vasopressor support. Patient was extubated 2 days ago and off vasopressors for greater than 24 hours RECOMMENDATIONS: 1. Respiratory failure with hypoxia and hypercapnia - Resolved at this time. Concern for viral contribution versus pulmonary edema. Regardless, the patient was liberated from the ventilator yesterday and is saturating well on room air only. There was concern for possible aspiration event. Currently on Zosyn. Consideration for de-escalation from Zosyn at this time. Patient does remain persistently febrile, however so consideration for longer duration may be appropriate given her acuity of illness. Continue azithromycin for now. Will consult speech to evaluate prior to reinstitution of oral medications, particularly patient with profound kyphosis and risk for aspiration. 2. Parainfluenza infection - Continue with supportive therapies. Not bronchospastic. No additional adjuvant therapy required. Procalcitonin was elevated however blood cultures show no growth to date and her fever curve appears to be improving. Patient has no history of resistant gram-negative rods and I think Zosyn can be safely discontinued. Azithromycin can be decreased down to 250 mg daily and complete a 5-day course (1 more day). 3. Generalized weakness - In the setting of profound illness with respiratory failure and hypoxia with concerns for aspiration pneumonitis. Continue PT/OT at this time. 4. Supply/demand mismatch-cardiology notes reviewed. Continue Lovenox for additional 24 hours. Continue aspirin. Follow-up echocardiogram in 2 to 3 months 5. Patient currently n.p.o. status. Pending repeat speech therapy evaluations today. Diet per speech Lines/IV access -PIV x 2. LEFT radial arterial line, Irwin catheter. DC arterial line and Irwin catheters DVT prophylaxis -Lovenox subQ Patient is significantly improved at this point in time with her critical care issues resolved. She can transfer out of the intensive care unit. Critical care services will sign off. Feel free to contact us with questions or concerns Admission and Anticipated Discharge Date Admission Date: September 09, 2023 Subjective Patient seen and examined. EMR reviewed. Discussed with critical care SAM from overnight. The patient is awake alert and conversant this morning. She feels her breathing is better. Her cough is more effectual. She was dangled by PT at the bedside yesterday. She has been off vasoactive agents for more than 24 hours. She is not reporting any chest pain or problems breathing. No nausea vomiting or diarrhea. She feels she is slowly improving Review of Systems Review of Systems: All systems reviewed & are unremarkable except as noted in Subjective Physical Exam Physical Exam: VITAL SIGNS - Vital signs and nursing notes were reviewed. GENERAL - 78-year-old female appearing her stated age who is in no acute distress. Communicates well with provider and answers questions appropriately. SKIN - Without rashes. HEAD - NC/AT. EYES - PERRL with EOMI bilaterally. Sclera anicteric. NOSE - Midline and without cyanosis. MOUTH/OROPHARYNX - Without perioral cyanosis. NECK - Profoundly kyphotic appearing. LUNGS - Kyphosis. Delayed air entry. CARDIAC - RRR with S1/S2. No murmur, rubs, or gallops appreciated. ABDOMEN - Abdominal contour obese without pulsations or visible masses. EXTREMITIES - No clubbing or peripheral cyanosis. No pretibial edema present. +3/5 radial pulses palpated throughout. NEUROLOGIC - Cranial nerves II through XII grossly intact. PSYCH - A&Ox3 and cooperates fully with examiner. Results & Data Results & Data Vital Signs (Past 12 Hours) Vital Signs Temp Pulse Pulse Resp Pulse Ox O2 Del Method O2 Flow Rate 09/14/23 06:58 68 20 100 Oxymask 1 09/14/23 05:00 37.0 C 68 13 100 09/14/23 04:00 37.0 C 70 21 100 09/14/23 03:00 37.0 C 76 23 95 09/14/23 02:00 37.0 C 80 21 98 09/14/23 01:03 89 18 100 Oxymask 2 09/14/23 01:00 37.2 C 71 21 99 09/14/23 00:00 37.3 C 73 7 L 98 09/13/23 23:00 37.4 C 76 22 99 09/13/23 22:00 37.5 C 80 24 98 09/13/23 21:00 37.5 C 86 24 97 09/13/23 20:00 37.6 C H 76 12 100 09/13/23 20:00 Oxymask Critical Care Results & Data Vital Signs (Past 12 Hours) Vital Signs Temp Pulse Pulse Resp Pulse Ox O2 Del Method O2 Flow Rate 09/14/23 06:58 68 20 100 Oxymask 1 09/14/23 05:00 37.0 C 68 13 100 09/14/23 04:00 37.0 C 70 21 100 09/14/23 03:00 37.0 C 76 23 95 09/14/23 02:00 37.0 C 80 21 98 09/14/23 01:03 89 18 100 Oxymask 2 09/14/23 01:00 37.2 C 71 21 99 09/14/23 00:00 37.3 C 73 7 L 98 09/13/23 23:00 37.4 C 76 22 99 09/13/23 22:00 37.5 C 80 24 98 09/13/23 21:00 37.5 C 86 24 97 09/13/23 20:00 37.6 C H 76 12 100 09/13/23 20:00 Oxymask Lab & Micro Results (Past 24 Hours) RBC 3.62 M/uL (4.20-5.40) L 09/14/23 WBC 6.60 K/ul (4.8-10.8) 09/14/23 Hgb 10.6 g/dl (12.0-16.0) L 09/14/23 Hct 31.6 % (37.0-47.0) L 09/14/23 MCV 87.3 fL (80.0-100.0) 09/14/23 MCH 29.3 pg (25.0-34.0) 09/14/23 MCHC 33.5 g/dL (32.0-36.0) 09/14/23 RDW Standard Deviation 41.8 fL (36.4-46.3) 09/14/23 RDW Coefficient of Variation 13.2 % (11.5-14.5) 09/14/23 Plt Count 186 K/uL (130-400) 09/14/23 MPV 10.6 fL (9.4-12.4) 09/14/23 Neutrophils (%) (Auto) 66.0 % 09/14/23 Lymphocytes (%) (Auto) 22.0 % 09/14/23 Monocytes # (Auto) 0.56 K/uL (0.11-0.59) 09/14/23 Eosinophils # (Auto) 0.16 K/uL (0.00-0.50) 09/14/23 Immature Granulocyte % (Auto) 0.3 % 09/14/23 Neutrophils # (Auto) 4.36 K/uL (1.40-6.50) 09/14/23 Lymphocytes # (Auto) 1.45 K/uL (1.20-3.40) 09/14/23 Monocytes # (Auto) 0.56 K/uL (0.11-0.59) 09/14/23 Eosinophils # (Auto) 0.16 K/uL (0.00-0.50) 09/14/23 Basophils # (Auto) 0.05 K/uL (0.00-0.20) 09/14/23 Immature Granulocyte # (Auto) 0.02 K/uL (0.01-0.20) 4 Na 136 mmol/L (136-145) 09/14/23 K 3.6 mmol/L (3.5-5.1) 09/14/23 Cl 102 mmol/L (98-107) 09/14/23 CO2 27 mmol/L (21-32) 09/14/23 Anion Gap 7 (3-11) 09/14/23 BUN 17 mg/dl (6-23) 09/14/23 Creatinine 0.73 mg/dl (0.6-1.2) 09/14/23 Estimated GFR ( Amer) 90.2 ml/min 09/14/23 Estimated GFR (Non-Af Amer) 77.8 ml/min 09/14/23 BUN/Creatinine Ratio 23.3 (10-20) H 09/14/23 Glu 95 mg/dl (70-99(Fasting)) 09/14/23 Ca 8.2 mg/dl (8.6-10.3) L 09/14/23 Phosphorus Level 2.8 mg/dl (2.5-4.9) 09/14/23 Mg 1.9 mg/dl (1.7-2.4) 09/14/23 04:39 Calcium Level 8.2 mg/dl (8.6-10.3) L 09/14/23 04:39 Microbiology 09/11/23 07:07 Aerobic Blood Culture - Preliminary Blood No growth in Aerobic bottle after 48 hours. Anaerobic Blood Culture - Final 09/11/23 07:02 Aerobic Blood Culture - Preliminary Blood No growth in Aerobic bottle after 48 hours. Anaerobic Blood Culture - Final I & O Totals 24 Hours 09/13/23 09/14/23 09/15/23 06:59 06:59 06:59 Intake Total 1780.680 / 2119.608 4829.033 / 1115.033 Output Total 3140 / 3240 975 / 975 Balance -1359.320 / -1459.320 140.033 / 140.033 Cumulative 09/09/23 17:32 thru 09/14/23 05:25 Intake Total 9193.048 Output Total 6255 Balance 2938.048 RT Ventilator Mngmt (Last Documented) Ventilator Ordered Settings Ventilator Support Mode CPAP 09/12/23 07:25 Respiratory Rate 20 09/14/23 06:58 Ventilator Tidal Volume 400 09/12/23 03:45 Setting Minute Ventilation 6.8 09/12/23 03:45 Ventilator Positive Pressure 10 09/12/23 07:25 Support Setting Positive End Expiratory 3 09/12/23 07:25 Pressure Fraction of Inspired Oxygen 89 09/13/23 07:50 Ventilator - PT Measurements Respiratory Rate 20 Exhaled Tidal Volume 389 Minute Ventilation 6.8 Peak Inspiratory Airway 24 Pressure Plateau Pressure 20 Respiratory Cycle Inspiratory: 1:3.2 Expiratory Ratio Inspiratory Phase Time 0.9 End-Tidal CO2 32 Static Lung Compliance 33.33 Dynamic Lung Compliance 25.00 Normal Static Lung Compliance 46.00 Patient Measurements Comment Patient found on SBT at this time, patient extubated to 4L Oxymask per verbal orders from Dr. Gee from RN Tatiana. Coding Level of Care Code 02479 SUB INP/OBS CARE 3/50MIN Diagnoses Respiratory failure J96.90 Required emergent intubation Z98.890 Infection due to parainfluenza virus 3 B34.8 Generalized weakness R53.1 Hypertension I10 Dyslipidemia E78.5 CAD (coronary artery disease) I25.10 Aortic valve sclerosis I35.8 Intravenous infiltration, initial encounter T80.1XXA Encounter type: initial encounter (9) IV infiltration Encounter type: initial encounter Qualified Code(s): T80.1XXA - Vascular complications following infusion, transfusion and therapeutic injection, initial encounter
[2023-09-14] MEDS: AZITHROMYCIN 250 MG in DEXTROSE 5% 250 ML IV SCH (09:05)
--- NOTE | 2023-09-14 18:08 | Billing Data ---
Date of Service September 14, 2023 Coding Level of Care Code 73863 SUB INP/OBS CARE
[2023-09-14] MEDS: PIPERACILLIN/TAZOBACTAM 4.5 GM in DEXTROSE 5% MINI-B 100 ML IV SCH (19:56)
[2023-09-15] MEDS: ACETAMINOPHEN 1,000 MG/100 ML VIAL IV PRN (02:48)
[2023-09-15 06:33] LABS: Basophils # (auto) 0.07 K/uL (0.00-0.20); Basophils % (auto) 1.1 %; Eosinophils # (auto) 0.26 K/uL (0.00-0.50); Eosinophils % (auto) 4.2 %; Hematocrit (blood only) 34.6 % (37.0-47.0); Hemoglobin 11.5 g/dl (12.0-16.0); Immature Granulocytes # (auto) 0.05 K/uL (0.01-0.20); Immature Granulocytes % (auto) 0.8 %; Lymphocytes # (auto) 1.63 K/uL (1.20-3.40); Lymphocytes % (auto) 26.6 %; Mean Corpuscular Hemoglobin 29.6 pg (25.0-34.0); Mean Corpuscular Hgb Conc 33.2 g/dL (32.0-36.0); Mean Corpuscular Volume 88.9 fL (80.0-100.0); Mean Platelet Volume 10.7 fL (9.4-12.4); Monocytes # (auto) 0.52 K/uL (0.11-0.59); Monocytes % (auto) 8.5 %; Neutrophils # (auto) 3.59 K/uL (1.40-6.50); Neutrophils % (auto) 58.8 %; Platelet Count 221 K/uL (130-400); RDW Coefficient of Variation 13.5 % (11.5-14.5); RDW Standard Deviation 44.2 fL (36.4-46.3); Red Blood Count 3.89 M/uL (4.20-5.40); White Blood Count 6.12 K/ul (4.8-10.8)
--- NOTE | 2023-09-15 06:47 | Hospitalist Progress Note ---
"Date of Service September 15, 2023 Assessment & Plan (1) Infection due to parainfluenza virus 3: (2) Flu-like symptoms: (3) Hypertension: (4) Dyslipidemia: (5) CAD (coronary artery disease): Plan 78 year-old female with a past medical history of CAD, LBBB, HTN, dyslipidemia who presented to the hospital for weakness and related ground level fall: Hypoxic/Hypercarbic Respiratory Failure (resolved), Parainfluenza -Respiratory panel positive for parainfluenza 3 virus -Patient transferred to ICU 09/10, intubated and placed on mechanical ventilation, successfully extubated on 09/11, currently stable on room air -Downgraded from ICU 09/13 -?secondary bacterial pneumonia vs pulmonary edema: Patient afebrile, WBC count downtrending, blood cultures negative, AM procal still slightly elevated from previous (.55) - Azithromycin x5 days completed, will change Zosyn to Ceftriaxone for the time being. -Continue albuterol and budesonide nebs Elevated HsCTNI, CAD, Aortic sclerosis, HTN, HLD - TTE 09/10 significant for reduced LVEF of 30-35% and LV wall motion abnormalities - Repeat TTE 09/12 with improvement in LVEF 45-50%, mild global hypokinesis, RV dilation/moderately reduced RV function - Cardiology consulted, impression favors stress induced cardiomyopathy/demand ischemia rather than acute thrombotic event but can be further evaluated as outpatient - Full dose Lovenox discontinued today - Unclear etiology for RV dysfunction, repeat echo as an outpatient Weakness | Ground level fall -S/p Ground level fall at home, normally uses walker for ambulation at baseline -Suspect some deconditioning from current viral illness -PT, OT evaluations ordered, recommending rehab when stable for discharge -CM following for dispo planning, referrals placed, patient likely to be stable for discharge within next day or so PCU/Tele Diet: HH, CC VTE prophylaxis: Lovenox Code Status: Full Code Admission and Anticipated Discharge Date Admission Date: September 09, 2023 Supervising Physician Co-Signing Physician Notes I personally examined the patient and verified all calvo points of history and exam, discussed case, and agree with decision making with Dr Goldstein Continues to feel better each day. Still weak. Not really short of breath. Vitals noted, in general she is awake and alert pleasant no distress but is very fatigued. HEENT normocephalic atraumatic mucous membranes moist. Breathing unlabored no accessory muscle use good effort, She does show faint scattered rhonchi probably right worse than the left but good air entry no accessory muscle use no conversational dyspnea and she is on room air. Skin without r ashes pallor or icterus. Acute hypoxic respiratory failure in the setting of Parainfluenza with concern for PNA, fluid overload during resuscitation - Improving, now several days off of ventilator, continue supportive care, continue to treat all underlying causes. -- very hard to rule out a secondary bacterial pneumonia, but agree with pulmonary that she likely does not need pseudomonal coverage. Narrow Zosyn to ceftriaxone, continue to follow Fluid overload w/ reduced EF on echocardiogram - continue diuresis with Cr monitoring. EF improvedlikely stress cardiomyopathy. Hypotension - Now off of pressors for quite a while PT/OT eval and treat, anticipate SNF > rehab but if she shows progress and would be able to do 3hrs a day then would consider both options otherwise as above Subjective Pt evaluated at bedside this morning, noticeably more alert. Patient denies SOB, denies fever/chills, primary sx of concern continues to be weakness but notes that this is improving. Patient understands signficance of her deconditioning, is amenable to placement. Review of Systems Review of Systems: as per HPI Physical Exam Physical Exam: General: Frail appearing, resting comfortably in bed, NAD Cardio: regular rate, regular rhythm Resp: Diffusely coarse breath sounds bilaterally Psych: mood affect congruence Results & Data Results & Data Vital Signs (Past 12 Hours) Vital Signs Temp Pulse Pulse Resp BP Pulse Ox O2 Del Method 09/15/23 03:01 36.8 C 71 18 143/69 H 93 Room Air 09/15/23 00:59 76 17 95 Room Air 09/15/23 00:40 70 09/14/23 22:26 36.7 C 73 18 156/76 H 94 Room Air 09/14/23 21:29 66 18 91 Room Air 09/14/23 20:45 Room Air 09/14/23 19:21 36.9 C 70 18 131/69 92 Room Air Resident Activity Tracking Resident Involvement: Resident Care Provided Care Provided: Adult Hospital Medicine"
[2023-09-15 07:45] LABS: Calcium 8.8 mg/dl (8.6-10.3); Potassium 3.8 mmol/L (3.5-5.1)
[2023-09-15 07:51] LABS: BUN Creatinine Ratio 20.8 (10-20); Creatinine Clr Calc Pharmacy 72.8 ml/min; Est GFR (African American) 91.7 ml/min; Est GFR (Non-African American) 79.1 ml/min; Phosphorus 2.5 mg/dl (2.5-4.9)
[2023-09-15] MEDS: AZITHROMYCIN 250 MG in DEXTROSE 5% 250 ML IV SCH (08:42)
--- NOTE | 2023-09-15 13:14 | Billing Data ---
Date of Service September 15, 2023 Coding Level of Care Code 48175 SUB INP/OBS CARE
[2023-09-15] MEDS: cefTRIAXone SODIUM 2,000 MG/50 ML BAG IV SCH (17:35)
[2023-09-15] MEDS: ENOXAPARIN INJ 40 MG/0.4 ML SYR SQ SCH (22:14)
[2023-09-16 06:12] LABS: Hemoglobin 11.5 g/dl (12.0-16.0); Mean Corpuscular Hemoglobin 29.2 pg (25.0-34.0); Mean Corpuscular Hgb Conc 32.9 g/dL (32.0-36.0); Mean Corpuscular Volume 88.8 fL (80.0-100.0); Mean Platelet Volume 10.7 fL (9.4-12.4); Platelet Count 235 K/uL (130-400); RDW Coefficient of Variation 13.4 % (11.5-14.5); RDW Standard Deviation 43.7 fL (36.4-46.3); Red Blood Count 3.94 M/uL (4.20-5.40); White Blood Count 6.41 K/ul (4.8-10.8)
[2023-09-16 06:23] LABS: BUN Creatinine Ratio 17.9 (10-20); Calcium 8.8 mg/dl (8.6-10.3); Creatinine Clr Calc Pharmacy 78.5 ml/min; Est GFR (African American) 96.2 ml/min; Magnesium 1.8 mg/dl (1.7-2.4); Phosphorus 2.7 mg/dl (2.5-4.9); Potassium 3.6 mmol/L (3.5-5.1)
--- NOTE | 2023-09-16 12:07 | Discharge Summary ---
Date of Service September 16, 2023 Admission HPI Per Admitting Provider Rajani Roy is a 78 year-old female with a past medical history of CAD, LBBB, HTN, dyslipidemia who presented to the hospital for weakness. She presented to the ED via EMS after a ground level fall and worsening weakness. Patient endorses several days of worsening weakness and feeling rundown. She notes that she lives with her daughter and son-in-law, notes that her family has also been sick in this same time period. Patient moved to the area to live with family about two years ago- has established with [facility]ology but does not have a PCP. Patient denies dizziness or lightheadedness, no nausea or vomiting. Endorses decreased intake of fluids and food since this illness started several days ago. She states she has "vein issues" and always has lower extremity swelling but this has not changed recently. Patient notes that she uses a walker at home. Patient also notes that her family that she lives with is leaving for [place] today for vacation. ED Course: -CBC,CMP, troponin -Chest x-ray, UA Admission Exam Per Admitting Provider Constitutional: Appears fatigued but in no acute distress Eyes: + anicteric sclerae; no conjunctival abn ormality ENMT: Ears: no external ear abnormality Nose: no external nose abnormality Slightly tacky mucous membranes Respiratory: + cough; no respiratory distress and nettles s not use accessory muscles Some diminished lung sounds Cardiovascular: Rate/Rhythm: regular rate and regular rhythm +1 edema of bilateral lower extremities, skin with signs of venous stasis dermatitis Gastrointestinal (Abdomen): Inspection/Auscultation: abdomen normal to inspection; abdomen not distended Percussion/Palpation: abdomen soft; abdomen nontender Musculoskeletal: Moves all limbs indepdently in bed Neurologic: no focal motor deficits Psychiatric: A+Ox3, euthymic affect Principal Diagnosis generalized weakness Discharge Exam General: Frail appearing, resting comfortably in bed, NAD Cardio: regular rate, regular rhythm Resp: Diffusely coarse breath sounds bilaterally Psych: mood affect congruence Discharge Data Allergies Allergy/AdvReac Type Severity Reaction Status Date / Time Sulfa (Sulfonamide Allergy Intermediate Hives Unverified 09/10/23 10:32 Antibiotics) Consultations 09/11/23 04:03 Consult Machine Joiner Cementer Routine 09/12/23 08:15 Consult Cardiology Routine Ordered Studies 09/11/23 05:15 CT angio chest PE protocol Stat Hospital Course (1) Infection due to parainfluenza virus 3: (2) Flu-like symptoms: (3) Hypertension: (4) Dyslipidemia: (5) CAD (coronary artery disease): Plan 78 year-old female with a past medical history of CAD, LBBB, HTN, dyslipidemia who presented to the hospital for weakness and related ground level fall: Hypoxic/Hypercarbic Respiratory Failure (resolved), Parainfluenza -Respiratory panel positive for parainfluenza 3 virus on admission -Patient transferred to ICU 09/10, intubated and placed on mechanical ventilation, successfully extubated on 09/11 -Downgraded from ICU 09/13, stable on room air since -?secondary bacterial pneumonia vs pulmonary edema: Patient afebrile, blood cultures negative - given initial decompensation and uncertainty about secondary bacterial pneumonia, treated with Azithromycin x5 days + Zosyn/Ceftriaxone x7 days Elevated HsCTNI, CAD, Aortic sclerosis, HTN, HLD - TTE 09/10 significant for reduced LVEF of 30-35% and LV wall motion abnormalities - Repeat TTE 09/12 with improvement in LVEF 45-50%, mild global hypokinesis, RV dilation/moderately reduced RV function - Cardiology consulted, impression favors stress induced cardiomyopathy/demand ischemia rather than acute thrombotic event but can be further evaluated as outpatient - Unclear etiology for RV dysfunction, repeat echo as an outpatient Weakness | Ground level fall -S/p Ground level fall at home, normally uses walker for ambulation at baseline -Suspect some deconditioning from viral illness -Pt discharged to [facility] for rehab Total Time Total Time Spent Total Time Spent (In Minutes): <30 Discharge Plan Discharge Items Patient Disposition: Transfer Inpatient Rehab Fac Reason For Visit: WEAKNESS Discharge Diagnosis: Weakness/ambulatory dysfunction Activity: As commented below Activity Comment: activity progression as directed by PT/OT Non-emergency contact: Primary Care Provider Call non-emergency contact if: you have any medication questions, your symptoms worsen and you have a fever Follow-up/Referrals: PCP,NO [Primary Care Provider] - Diet: Carb Consistent or DM2 and Heart Healthy Addtl Attending Provider Instructions: You were admitted to the hospital for weakness, likely resulting from a respiratory infection. You were evaluated by PT and OT, who felt that you would likely benefit from placement in rehab prior to returning home. A discharge summary will be sent to your primary care physician to ensure continuity of care. Please bring this discharge summary with you to your next office appointment so that your provider can review it at that time. Medications: Your medication list has been reviewed and reconciled upon discharge to ensure accuracy and continuity of care. An updated list of all your medications is included with your hospital discharge paperwork. Please review this list closely and make note of any changes to your medications. Antibiotics were completed during your hospitalization - no other changes were made to your home medications. Please continue to take them as previously direct ed. Follow up appointments: - Make a follow up appointment with your PCP within the next week. It is very important that you follow up with them shortly after discharge from the hospital . - Keep all of your follow up appointments as already scheduled. If you cannot make an appointment, notify your provider. CONTACT YOUR PRIMARY CARE PROVIDER if you experience any of the following: - Difficulty following your treatment plan - Difficulty taking any of your medications CALL 911 OR GO TO THE EMERGENCY DEPARTMENT if you experience any of the following: - Sudden, severe abdominal pain or nausea/vomiting - Severe chest pain or chest pain that radiates to your jaw or arm - Sudden, severe shortness of breath or difficulty breathing Pending Studies at Discharge: No Stand-Alone Forms: My [facility] Skilled Items Patient informed of condition?: Yes DNR: No Discharge Level of Care: Acute rehab Communicable Disease: No Discharge Prognosis: Improving Lines: None Urinary Catheter: No Medications and DC Order Prescriptions: Continued levothyroxine 100 mcg tablet 100 mcg PO DAILY Qty: 40 0RF simvastatin 40 mg tablet 40 mg PO DAILY cholecalciferol (vitamin D3) 125 mcg (5,000 unit) capsule 125 mcg PO DAILY spironolactone 25 mg tablet 25 mg PO DAILY aspirin 81 mg tablet,delayed release (DR/EC) 81 mg PO DAILY metoprolol succinate 50 mg tablet extended release 24 hr 25 mg PO DAILY docusate sodium [Colace] 100 mg Capsule 100 mg PO BID Discharge Orders: Discharge Order (Routine); Ordered 09/16/23 Ordered By: Bobby Goldstein Admission Data Admit Date/Time: 09/09/23 22:29 Attending Provider: John Faria Admit Provider: Laura Castillo Primary Care Provider: PCP,NO Other Providers: [facility]; Edgardo Gee; Nick Bailey; Andrew Rubio; Collins Gregory; Amadeo Hunt; Annita Newman; Arron Covington; Barbra Barreto; Nilda Glynn; Maxim Cannon; Manas Samano; Elodia Reyez; Glenn Taylor Other Interventions: Discharge Summary Assessment (RN) Last Done: 09/16/23 12:38 Supervising Physician Co-Signing Physician Notes I personally examined the patient and verified all calvo points of history and exam, discussed case, and agree with decision making with Dr Goldstein feeling better each day. trying to eat as much as she can. anxious to get stronger/happy to get to rehab. Vitals noted, in general she is awake and alert pleasant no distress. HEENT normocephalic atraumatic mucous membranes moist. Breathing unlabored no accessory muscle use good effort, no accessory muscle use no conversational dyspnea and she is on room air. Skin without rashes pallor or icterus. Acute hypoxic respiratory failure in the setting of Parainfluenza with concern for PNA, fluid overload during resuscitation - Improving, now several days off of ventilator, continue supportive care, continue to treat all underlying causes. -- very hard to rule out a secondary bacterial pneumonia, but agree with pulmonary that she likely does not need pseudomonal coverage - and was treated for an adequate duration if there was secondary bacterial overgrowth - ok to hold further abx Fluid overload w/ reduced EF on echocardiogram - clinically euvolemic today. ongoing follow up at rehab. EF improvedlikely stress cardiomyopathy. Hypotension - Now off of pressors for quite a while PT/OT eval and treat ongoing at rehab otherwise as above Resident Activity Tracking Resident Involvement: Resident Care Provided Care Provided: Adult Hospital Medicine
--- NOTE | 2023-09-16 13:03 | Billing Data ---
Date of Service September 16, 2023 Coding Level of Care Code 08531 IN/OBS DISCH 30 MIN/LESS
== END 2023-09-16 13:16 | DRG 208 ==
LOC: ED 17:42 → EDINP 22:29 → SUATTDRO 22:29 → 2N 23:12 → 1E 09-11 04:03 → 4W 09-14 16:21

== ENCOUNTER 2024-12-12 13:42 | Observation (INO) ==
--- NOTE | 2024-12-12 14:13 | Emergency Department Note ---
Impression & Plan Hypertension, Elevated troponin, Acute UTI, Hypomagnesemia ED Provider Note NAME: BERRY ROTH AGE: 79 SEX: F : 1945 ARRIVES VIA: Ambulance INFORMANT: [Patient] ED PROVIDER(S): [Efrain Lubin MD] CHIEF COMPLAINT: Hypertension HISTORY OF PRESENT ILLNESS: The patient is an 79-year-old female who was sent from the urology office for high blood pressure. Patient was there for an appointment because she is having frequent UTIs and despite recent treatment, was still having some urinary symptoms. At the office, her blood pressure was over 200 systolic, she felt lightheaded, she was sent for evaluation. The patient does not have any headache. There was no chest pain. No arm or leg weakness. No nausea or vomiting. She did not pass out. The patient is on medication for blood pressure. She typically takes 10 mg of lisinopril and 25 mg of metoprolol succinate. PMHx/PSHx/Social Hx: See Below PHYSICAL EXAM: GENERAL: Patient is in no acute distress. HEENT: No acute trauma, normocephalic atraumatic, mucous membranes moist, no nasal congestion. NECK: No stridor, no adenopathy, no meningismus, trachea is midline. LUNGS: Clear to auscultation bilaterally, no wheeze, no rhonchi, breath sounds equal. HEART: 2/6 systolic murmur, regular rate and rhythm. ABDOMEN: Soft, nontender, no peritonitis. EXTREMITIES: No cyanosis, full range of motion of all the joints without pain or difficulty. Moderate bilateral pedal edema. NEUROLOGIC: Oriented x 3, no acute motor or sensory deficits, no focal weakness. SKIN: No jaundice, no diaphoresis. DIFFERENTIAL DIAGNOSIS: Hypertension, electrolyte imbalance, UTI, cardiac ischemia, among others. EMERGENCY DEPARTMENT PROCEDURES: MEDICAL DECISION MAKING: There is no leukocytosis or concerning anemia. There is a normal platelet count. No bandemia. No renal failure, magnesium was somewhat low at 1.6. No concerning liver enzyme elevation. The patient appeared to be in a euthyroid state. Urinalysis does show findings of infection. ECG showed a sinus rhythm with a left bundle branch block. No acute ST elevation. Cardiac enzyme testing x 2 is elevated with a slight rise in the troponin values, cardiac injury is certainly a potential concern given the troponin rise, mismatch was also considered. Chest x-ray did not show mediastinal widening, pneumonia or pneumothorax. On exam, the patient was hypertensive but not in distress or pain. She was not febrile. The patient received IV labetalol, she was given IV ceftriaxone for the UTI. She was given oral lisinopril and IV magnesium. Given the hypertension, the episode with high blood pressure earlier at the urology office, the rising troponin, the UTI, hospitalization was felt warranted. I spoke with the patient and case management. The on-call hospitalist was consulted. Prior/Outside records/notes reviewed: Today's EMS notes describing her presentation and transport to this hospital. ECG per my interpretation: Indication was hypertension. ECG used shows a sinus rhythm with a first-degree AV block. The rate is 80. There is a left bundle branch block. There is significant baseline artifact. There is no acute ST elevation, no PVCs. The QTc is 525. Compared to an ECG from 06 October 2024, I see no significant change. Continuous Cardiac Monitoring per my interpretation: An order was placed for continuous cardiac monitoring. The monitor shows a rate of 85 with sinus rhythm with a first-degree block. Imaging/x-ray results per my interpretation: Chest x-ray does not show pneumonia or CHF. Chronic Medical/Social conditions affecting care: Advanced age. Care/Management discussed with: Case management and the on-call hospitalist. Level of care consideration(s): After review of the information above and other included data: --I believe the patient requires escalation of care to admission DISPOSITION: Admission Past Med/Surg History Problem List (Updated 12/12/24 @ 18:51 by Efrain Lubin MD) Hypomagnesemia (Acute) Acute UTI (Acute) Elevated troponin (Acute) Hypertension (Acute) Venous stasis ulcers Left leg cellulitis Acute diarrhea CKD (chronic kidney disease), stage III Acute gastroenteritis Hypotension Cardiomyopathy Elevated troponin Required emergent intubation Respiratory failure Infection due to parainfluenza virus 3 (Acute) Flu-like symptoms (Acute) Generalized weakness (Acute) S/P coronary artery stent placement (2009) Cx, RCA Carotid artery stenosis Hypertension Dyslipidemia CAD (coronary artery disease) Aortic valve sclerosis Medical History IV infiltration Orthostasis Accidental fall LBBB (left bundle branch block) TIA (transient ischemic attack) Sleep apnea Surgical History History of knee joint replacement Social History Smoking Status: Never smoker Hx Alcohol Use: No Hx Substance Use: No Preferred Language: Malagasy Communication Ability: Effective 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 Beliefs That Will Affect Care: None Current Living Situation: Family Feels Safe at Home: Yes Assistive Devices: Walker and Wheelchair Allergies Allergies Allergy/AdvReac Type Severity Reaction Status Date / Time Sulfa (Sulfonamide Allergy Intermediate Hives Verified 10/06/24 17:32 Antibiotics) Home Meds Home Medications Medication Instructions Recorded Confirmed cholecalciferol (vitamin D3) 125 125 mcg PO DAILY 01/05/23 12/12/24 mcg (5,000 unit) capsule aspirin 81 mg tablet,delayed 81 mg PO DAILY 01/06/23 12/12/24 release Previous Rx's Medication Instructions Recorded levothyroxine 100 mcg tablet 100 mcg PO DAILY #40 tabs 01/20/23 atorvastatin 40 mg tablet 40 mg PO DAILY #90 tabs 09/27/24 lisinopril 10 mg tablet 10 mg PO DAILY #90 tabs 09/27/24 metoprolol succinate 25 mg 25 mg PO DAILY #90 tabs 09/27/24 tablet,extended release 24 hr Results & Data (ED) Vital Signs Vital Signs - 24 hr 12/12/24 13:52 12/12/24 14:30 12/12/24 14:32 Temperature 36.6 C Temperature Source Oral Pulse Rate 85 70 Pulse Rate [Apical] 73 Pulse Rhythm Regular Pulse Rhythm [Apical] Pulse Strength [Apical] Respiratory Rate 20 17 17 Respiratory Effort / Characteristics Non-Labored Spontaneous Non-Labored Spontaneous Respiratory Depth Normal Normal Respiratory Pattern Regular Blood Pressure 170/76 H Blood Pressure [Left Arm] 158/66 H Blood Pressure Mean 107 Blood Pressure Mean [Left Arm] 96 Blood Pressure Position [Left Arm] Sitting Pulse Oximetry 100 98 100 Oxygen Delivery Method Room Air Room Air Room Air Sepsis Recent Fever Within 48 Hours No Sepsis New/Unexplained Change in Mental Status No Sepsis Action Taken by Nursing No Action Required 12/12/24 16:00 12/12/24 18:00 12/12/24 18:38 Temperature Temperature Source Pulse Rate 66 Pulse Rate [Apical] 72 Pulse Rhythm Pulse Rhythm [Apical] Regular Pulse Strength [Apical] Normal Respiratory Rate 17 17 Respiratory Effort / Characteristics Non-Labored Spontaneous Non-Labored Spontaneous Respiratory Depth Normal Normal Respiratory Pattern Blood Pressure Blood Pressure [Left Arm] 172/79 H 177/68 H Blood Pressure Mean Blood Pressure Mean [Left Arm] 110 104 Blood Pressure Position [Left Arm] Sitting Semi-fowlers Pulse Oximetry 99 97 Oxygen Delivery Method Room Air Room Air Sepsis Recent Fever Within 48 Hours Sepsis New/Unexplained Change in Mental Status Sepsis Action Taken by Custodial Medications Current Medication List: was personally reviewed by me Laboratory Data Attestation: I reviewed the patient's lab results. 12/12/24 14:26 12/12/24 14:26 Lab Results 12/12/24 12/12/24 12/12/24 Range/Units 14:26 17:21 17:37 WBC 7.33 (4.8-10.8) K/ul RBC 4.24 (4.20-5.40) M/uL Hgb 11.8 L (12.0-16.0) g/dl Hct 37.4 (37.0-47.0) % MCV 88.2 (80.0-100.0) fL MCH 27.8 (25.0-34.0) pg MCHC 31.6 L (32.0-36.0) g/dL RDW Std Deviation 43.0 (36.4-46.3) fL RDW Coeff of Niki 13.3 (11.5-14.5) % Plt Count 210 (130-400) K/uL MPV 11.4 (9.4-12.4) fL Immature Gran % (Auto) 0.3 % Neut % (Auto) 72.1 % Lymph % (Auto) 14.5 % Towns % (Auto) 9.4 % Eos % (Auto) 2.9 % Baso % (Auto) 0.8 % Neut # (Auto) 5.29 (1.40-6.50) K/uL Lymph # (Auto) 1.06 L (1.20-3.40) K/uL [place] # (Auto) 0.69 H (0.11-0.59) K/uL Eos # (Auto) 0.21 (0.00-0.50) K/uL Baso # (Auto) 0.06 (0.00-0.20) K/uL Immature Gran # (Auto) 0.02 (0.01-0.20) K/uL Sodium 141 (136-145) mmol/L Potassium 3.9 (3.5-5.1) mmol/L Chloride 106 (98-107) mmol/L Carbon Dioxide 28 (21-32) mmol/L Anion Gap 7 (3-11) BUN 21 (6-23) mg/dl Creatinine 0.87 (0.6-1.2) mg/dl Est Cr Clr Drug Dosing 59.1 ml/min eGFR 66.89 BUN/Creatinine Ratio 24.1 H (10-20) Glucose 97 (70-99(Fasting)) mg/dl Calcium 9.5 (8.6-10.3) mg/dl Magnesium 1.6 L (1.7-2.4) mg/dl Total Bilirubin 1.0 (0.2-1.0) mg/dl AST 18 (13-39) U/L ALT 8 (7-52) U/L Alkaline Phosphatase 65 (34-104) U/L Troponin I High Sens 19.3 H 65.9 H* D (0-14) pg/ml Total Protein 6.9 (6.0-8.3) gm/dl Albumin 3.7 (3.4-5.0) gm/dl Globulin 3.2 (2.5-4.0) gm/dl Albumin/Globulin Ratio 1.2 (0.9-2) TSH 1.367 (0.300-4.500) uIu/ml Urine Color Yellow Urine Appearance Cloudy A (Clear) Urine pH 7.5 (4.5-7.5) Ur Specific [place] 1.015 (1.000-1.030) Urine Protein 2+ H (Negative) Urine Glucose (UA) Negative (Negative) Urine Ketones Negative (Negative) Urine Blood 3+ H (Negative) Urine Nitrite Negative (Negative) Urine Bilirubin Negative (Negative) Urine Urobilinogen Negative (Negative) Ur Leukocyte Esterase 3+ H (Negative) Urine WBC (Auto) >50 H (0-5) /hpf Urine RBC (Auto) >20 H (0-2) /hpf U Hyaline Cast (Auto) 0-2 (0-2) /lpf U Epithel Cells (Auto) 0-2 (0-2) /hpf Urine Bacteria (Auto) None Seen (None Seen) Urine Comment Administered Medications Discontinued Medications Magnesium Sulfate/Dextrose (Magnesium Sulfate / D5w) 1 gm in 100 mls @ 100 mls/hr IV NOW STA Stop: 12/12/24 15:59 Last Infusion: 12/12/24 16:21 Dose: Infused Documented By: Admin: 12/12/24 15:11 Dose: 100 mls/hr Documented By: SCOTT Lisinopril (Lisinopril 10 Mg Tab) 10 mg PO NOW STA Stop: 12/12/24 14:06 Last Admin: 12/12/24 14:31 Dose: 10 mg Documented By: [facility] Imaging Data Radiologist's Impression: Chest X-Ray 12/12/24 13:52 SINGLE VIEW CHEST CLINICAL HISTORY: Generalized weakness. FINDINGS: An AP, portable, upright chest radiograph is compared to study dated 10/06/2024 and correlated with chest CT dated 09/11/2023. The patient's head obscures the apices. The heart is enlarged noting atherosclerotic calcification of the thoracic aorta. The pulmonary vasculature is noncongested. Chronic interstitial thickening is similar to previous. Scarring/atelectasis is noted at the lung bases. No airspace consolidation or large pleural effusion is identified. No pneumothorax is seen. The skeletal structures are osteopenic. The bony thorax is grossly intact. Degenerative change is noted in the thoracic spine. IMPRESSION: Cardiomegaly with no acute cardiopulmonary abnormality identified. ACT 112: Negative or not required by law. Electronically signed by: Efrain Castillo M.D. 12/12/2024 2:18 PM Discharge Plan Visit Data Chief Complaint: Hypertension Stated Complaint: HYPERTENSION ED Provider: Efrain Lubin Discharge Problem: Hypertension, Elevated troponin, Acute UTI, Hypomagnesemia Patient Disposition: Admitted As Inpatient Condition: Fair Forms Stand Alone Forms: My [facility] Take[employer] Prescriptions Prescriptions: No Action levothyroxine 100 mcg tablet 100 mcg PO DAILY Qty: 40 0RF atorvastatin 40 mg tablet 40 mg PO DAILY Qty: 90 3RF cholecalciferol (vitamin D3) 125 mcg (5,000 unit) capsule 125 mcg PO DAILY Patient Comments: 12/12- otc unable to verify aspirin 81 mg tablet,delayed release (DR/EC) 81 mg PO DAILY Patient Comments: 12/12- otc unable to verify lisinopril 10 mg tablet 10 mg PO DAILY Qty: 90 3RF metoprolol succinate 25 mg tablet extended release 24 hr 25 mg PO DAILY Qty: 90 3RF Referrals Referrals: Tricia Kovacs PA-C [Primary Care Provider] - Discharge Problem: Hypertension Qualifiers: Hypertension type: unspecified Qualified Code(s): I10 - Essential (primary) hypertension
--- NOTE | 2024-12-12 14:20 | XRay Report ---
SINGLE VIEW CHEST CLINICAL HISTORY: Generalized weakness. FINDINGS: An AP, portable, upright chest radiograph is compared to study dated 10/06/2024 and correlat ed with chest CT dated 09/11/2023. The patient's head obscures the apices. The heart is enlarged notin g atherosclerotic calcification of the thoracic aorta. The pulmonary vasculature is noncongested. Chr onic interstitial thickening is similar to previous. Scarring/atelectasis is noted at the lung bases. No airspace consolidation or large pleural effusion is identified. No pneumothorax is seen. The skel etal structures are osteopenic. The bony thorax is grossly intact. Degenerative change is noted in th e thoracic spine. IMPRESSION: Cardiomegaly with no acute cardiopulmonary abnormality identified. ACT 112: Negative or not required by law. Electronically signed by: Efrain Castillo M.D. 12/12/2024 2:18 PM
[2024-12-12 14:39] LABS: Hematocrit (blood only) 37.4 % (37.0-47.0); Hemoglobin 11.8 g/dl (12.0-16.0); Immature Granulocytes # (auto) 0.02 K/uL (0.01-0.20); Immature Granulocytes % (auto) 0.3 %; Mean Corpuscular Hemoglobin 27.8 pg (25.0-34.0); Mean Corpuscular Volume 88.2 fL (80.0-100.0); Platelet Count 210 K/uL (130-400); RDW Standard Deviation 43.0 fL (36.4-46.3); Red Blood Count 4.24 M/uL (4.20-5.40); White Blood Count 7.33 K/ul (4.8-10.8)
[2024-12-12 14:57] LABS: Alanine Aminotransferase 8.0 U/L (7-52); Albumin Globulin Ratio 1.2 (0.9-2); Alkaline Phosphatase 65.0 U/L (34-104); Anion Gap 7.0 (3-11); Bilirubin,Total 1.0 mg/dl (0.2-1.0); Blood Urea Nitrogen 21.0 mg/dl (6-23); Calcium 9.5 mg/dl (8.6-10.3); Carbon Dioxide 28.0 mmol/L (21-32); Chloride 106.0 mmol/L (98-107); Creatinine Clr Calc Pharmacy 59.1 ml/min; Globulin 3.2 gm/dl (2.5-4.0); Glucose 97.0 mg/dl (70-99(Fasting)); Magnesium 1.6 mg/dl (1.7-2.4); Potassium 3.9 mmol/L (3.5-5.1); Sodium 141.0 mmol/L (136-145); Total Protein 6.9 gm/dl (6.0-8.3)
[2024-12-12] MEDS: MAGNESIUM SULFATE / D5W 1 GM/100 ML BAG IV STA (15:11)
[2024-12-12 15:12] LABS: Thyroid Stimulating Hormone 1.367 uIu/ml (0.300-4.500)
[2024-12-12 17:49] LABS: Appearance Urine Cloudy (Clear); Glucose Urine UA Negative (Negative)
[2024-12-12 18:05] LABS: Bacteria Urine Automated None Seen (None Seen); Cast Urine Automated 0-2 /lpf (0-2); Epithelial Cell Urine Auto 0-2 /hpf (0-2); RBC Urine Automated >20 /hpf (0-2); WBC Urine Automated >50 /hpf (0-5)
[2024-12-12] MEDS: cefTRIAXone SODIUM 2,000 MG/50 ML BAG IV STA (19:21)
--- NOTE | 2024-12-12 19:43 | History & Physical Report ---
Date of Service December 12, 2024 Assessment & Plan (1) Hypertension: (2) Elevated troponin: (3) Acute UTI: (4) Dyslipidemia: (5) CAD (coronary artery disease): Plan 79-year-old female with history of hypertension, hyperlipidemia coronary artery disease presenting from the urology office with markedly elevated blood pressure and dizziness. #Hypertensionblood pressure has improved. Patient did take an additional metoprolol while in the waiting room at urology and was given 10 mg of lisinopril in the ER here. Blood pressure presently 158/59. Presently denies chest pain, shortness of breath, dizziness, focal neurologic symptoms Admit to medical telemetry Continue home medication metoprolol 25 mg p.o. daily, lisinopril 10 mg p.o. daily Hydralazine 10 mg p.o. every 8 hours as needed for blood pressure greater than 180/110 PT/OT evaluation appreciated #Elevated troponinTroponin = 19.3--> 65.9. EKG with sinus rhythm at 80 bpm, first-degree AV block, left bundle branch block present which was present on giovani or EKGs per independent review. Telemetry monitoring Continue to trend troponin to peak Check 2D echo Continue home aspirin 81 mg daily, atorvastatin 40 mg daily, metoprolol 25 mg daily and lisinopril 10 mg daily #UTIpatient with pyuria, WBCs greater than 50. No bacteria seen. No prior history of drug-resistant cultures Follow urine culture Ceftriaxone 2 g IV daily #Hyperlipidemiachronic, stable Continue atorvastatin 40 mg p.o. daily #Coronary artery diseasestatus post stent placement to RCA and circumflex in 2009 Continue aspirin, atorvastatin, metoprolol, lisinopril #HypothyroidismTSH on 12/12/2024 within normal limits at 1.367 Continue Synthroid 100 mcg p.o. daily History of Present Illness Chief Complaint: Elevated blood pressure, presyncope Primary Care Provider: Tricia Gastelumlori Roy is an 79yo female with history of hypertension, hyperlipidemia, coronary artery disease status post stent x 2 (RCA and Cx in 2009), Mild (by echo in 2023), RICARDO not on CPAP presenting from urology office for episode of markedly elevated blood pressure and presyncope. Patient follows with urology for recurrent UTIs. She had an appointment today. While in the waiting room, she felt hot and lightheaded as if she might pass out. They took her back to her room and checked her blood pressure which was found to be 223/86. Patient did take a second metoprolol while in the waiting room which she thought might help with the symptoms. She reports that the symptoms lasted approximately 15 to 20 minutes then resolved. She was subsequently sent to the emergency room. Patient denies chest pain, cough, shortness of breath, headache, dizziness, focal numbness/tingling/weakness. Has no additional complaints at this time. ER course: Ceftriaxone 2 g Magnesium 1 g Lisinopril 10 mg p.o. Allergies Allergy/AdvReac Type Severity Reaction Status Date / Time Sulfa (Sulfonamide Allergy Intermediate Hives Verified 10/06/24 17:32 Antibiotics) Home Medications Medication Instructions Recorded Confirmed Type cholecalciferol (vitamin D3) 125 125 mcg PO DAILY 01/05/23 12/12/24 History mcg (5,000 unit) capsule aspirin 81 mg tablet,delayed 81 mg PO DAILY 01/06/23 12/12/24 History release levothyroxine 100 mcg tablet 100 mcg PO DAILY #40 tabs 01/20/23 12/12/24 Rx atorvastatin 40 mg tablet 40 mg PO DAILY #90 tabs 09/27/24 12/12/24 Rx lisinopril 10 mg tablet 10 mg PO DAILY #90 tabs 09/27/24 12/12/24 Rx metoprolol succinate 25 mg 25 mg PO DAILY #90 tabs 09/27/24 12/12/24 Rx tablet,extended release 24 hr Past Med/Surg History Problem List (Updated 12/12/24 @ 21:19 by [place]) Hypomagnesemia (Acute) Acute UTI (Acute) Elevated troponin (Acute) Hypertension (Acute) Venous stasis ulcers Left leg cellulitis Acute diarrhea CKD (chronic kidney disease), stage III Acute gastroenteritis Hypotension Cardiomyopathy Elevated troponin Required emergent intubation Respiratory failure Infection due to parainfluenza virus 3 (Acute) Flu-like symptoms (Acute) Generalized weakness (Acute) S/P coronary artery stent placement (2009) Cx, RCA Carotid artery stenosis Hypertension Dyslipidemia CAD (coronary artery disease) Aortic valve sclerosis Medical History IV infiltration Orthostasis Accidental fall LBBB (left bundle branch block) TIA (transient ischemic attack) Sleep apnea Surgical History History of knee joint replacement Social History Smoking Status: Never smoker Hx Alcohol Use: No Hx Substance Use: No Preferred Language: Serbian Communication Ability: Effective 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 Beliefs That Will Affect Care: None Current Living Situation: Family Feels Safe at Home: Yes Assistive Devices: Walker and Wheelchair Review of Systems Review of Systems: General: Patient denies fevers, chills, malaise, weight loss or weight gain Skin: Patient denies bruising, bleeding or rash HEENT: Patient denies headache, visual changes, sore throat, difficulty swallowing, stiff neck Cardio: Patient denies chest pain, palpitations, shortness of breath, lightheadedness Pulmonary: Patient denies cough, wheeze GI: Patient denies abdominal pain, nausea, vomiting, diarrhea, constipation : Patient denies dysuria, frequency, urgency or hematuria Musculoskeletal: Patient denies swelling or pain of the joints, edema Neuro: Patient denies numbness, tingling, weakness or falls Psych: Patient denies depression, anxiety Physical Exam Physical Exam: General: patient resting comfortably, NAD, non-toxic in appearance, AA&O x 4 Skin: warm, dry, intact, no rashes or lesions HEENT: NC/AT, PERRL, EOMI, anicteric sclera, conjunctiva without injection, external ear normal to inspection and nontender, nares patent, moist mucus membranes, dentition intact, no oropharyngeal lesions, neck supple, trachea midline, no LAD, no thyromegaly, no JVD Heart: +S1/S2, regular, 2/6 SUZANNE at right 2nd ICS Lungs: equal air entry bilaterally, no rales/rhonchi/wheezes Abd: +BS, soft, NT/ND, no masses/organomegaly/ascites Ext: warm, 2+ pulses in UE/LE bilaterally, no clubbing/cyanosis or edema Neuro: nonfocal, patient AA&O x 4, speech intact, no facial droop, moving all extremities on command with equal strength 5/5 Results & Data Results & Data Vital Signs (Past 12 Hours) Vital Signs Temp Pulse Pulse Resp BP BP Pulse Ox 12/12/24 19:08 62 20 170/82 H 95 12/12/24 18:38 66 12/12/24 18:00 17 177/68 H 97 12/12/24 16:00 72 17 172/79 H 99 12/12/24 14:32 73 17 158/66 H 100 12/12/24 14:30 70 17 98 12/12/24 13:52 36.6 C 85 20 170/76 H 100 O2 Del Method 12/12/24 19:08 Room Air 12/12/24 18:38 12/12/24 18:00 Room Air 12/12/24 16:00 Room Air 12/12/24 14:32 Room Air 12/12/24 14:30 Room Air 12/12/24 13:52 Room Air Laboratory Results Laboratory Results WBC 7.33 K/ul (4.8-10.8) 12/12/24 14:26 RBC 4.24 M/uL (4.20-5.40) 12/12/24 14:26 Hgb 11.8 g/dl (12.0-16.0) L 12/12/24 14:26 Hct 37.4 % (37.0-47.0) 12/12/24 14:26 MCV 88.2 fL (80.0-100.0) 12/12/24 14:26 MCH 27.8 pg (25.0-34.0) 12/12/24 14:26 MCHC 31.6 g/dL (32.0-36.0) L 12/12/24 14:26 RDW Std Deviation 43.0 fL (36.4-46.3) 12/12/24 14:26 RDW Coeff of Niki 13.3 % (11.5-14.5) 12/12/24 14:26 Plt Count 210 K/uL (130-400) 12/12/24 14:26 MPV 11.4 fL (9.4-12.4) 12/12/24 14:26 Immature Gran % (Auto) 0.3 % 12/12/24 14:26 Neut % (Auto) 72.1 % 12/12/24 14:26 Lymph % (Auto) 14.5 % 12/12/24 14:26 [place] % (Auto) 9.4 % 12/12/24 14:26 Eos % (Auto) 2.9 % 12/12/24 14:26 Baso % (Auto) 0.8 % 12/12/24 14:26 Neut # (Auto) 5.29 K/uL (1.40-6.50) 12/12/24 14:26 Lymph # (Auto) 1.06 K/uL (1.20-3.40) L 12/12/24 14:26 [place] # (Auto) 0.69 K/uL (0.11-0.59) H 12/12/24 14:26 Eos # (Auto) 0.21 K/uL (0.00-0.50) 12/12/24 14:26 Baso # (Auto) 0.06 K/uL (0.00-0.20) 12/12/24 14:26 Immature Gran # (Auto) 0.02 K/uL (0.01-0.20) 12/12/24 14:26 Sodium 141 mmol/L (136-145) 12/12/24 14:26 Potassium 3.9 mmol/L (3.5-5.1) 12/12/24 14:26 Chloride 106 mmol/L (98-107) 12/12/24 14:26 Carbon Dioxide 28 mmol/L (21-32) 12/12/24 14:26 Anion Gap 7 (3-11) 12/12/24 14:26 BUN 21 mg/dl (6-23) 12/12/24 14:26 Creatinine 0.87 mg/dl (0.6-1.2) 12/12/24 14:26 Est Cr Clr Drug Dosing 59.1 ml/min 12/12/24 14:26 eGFR 66.89 12/12/24 14:26 BUN/Creatinine Ratio 24.1 (10-20) H 12/12/24 14:26 Glucose 97 mg/dl (70-99(Fasting)) 12/12/24 14:26 Calcium 9.5 mg/dl (8.6-10.3) 12/12/24 14:26 Magnesium 1.6 mg/dl (1.7-2.4) L 12/12/24 14:26 Total Bilirubin 1.0 mg/dl (0.2-1.0) 12/12/24 14: AST 18 U/L (13-39) 12/12/24 14:26 ALT 8 U/L (7-52) 12/12/24 14:26 Alkaline Phosphatase 65 U/L (34-104) 12/12/24 14: Troponin I High Sens 65.9 pg/ml (0-14) H* D 12/12/24 17:21 Total Protein 6.9 gm/dl (6.0-8.3) 12/12/24 14:26 Albumin 3.7 gm/dl (3.4-5.0) 12/12/24 14: Globulin 3.2 gm/dl (2.5-4.0) 12/12/24 14: Albumin/Globulin Ratio 1.2 (0.9-2) 12/12/24 14: TSH 1.367 uIu/ml (0.300-4.500) 12/12/24 14:26 Urine Color Yellow 12/12/24 17:37 Urine Appearance Cloudy (Clear) A 12/12/24 17:37 Urine pH 7.5 (4.5-7.5) 12/12/24 17:37 Ur Specific [place] 1.015 (1.000-1.030) 12/12/24 17:37 Urine Protein 2+ (Negative) H 12/12/24 17:37 Urine Glucose (UA) Negative (Negative) 12/12/24 17:37 Urine Ketones Negative (Negative) 12/12/24 17:37 Urine Blood 3+ (Negative) H 12/12/24 17:37 Urine Nitrite Negative (Negative) 12/12/24 17:37 Urine Bilirubin Negative (Negative) 12/12/24 17:37 Urine Urobilinogen Negative (Negative) 12/12/24 17:37 Ur Leukocyte Esterase 3+ (Negative) H 12/12/24 17:37 Urine WBC (Auto) >50 /hpf (0-5) H 12/12/24 17:37 Urine RBC (Auto) >20 /hpf (0-2) H 12/12/24 17:37 U Hyaline Cast (Auto) 0-2 /lpf (0-2) 12/12/24 17:37 U Epithel Cells (Auto) 0-2 /hpf (0-2) 12/12/24 17:37 Urine Bacteria (Auto) None Seen (None Seen) 08/19/25 17:37 Urine Comment 12/12/24 17:37 Impressions Chest X-Ray 12/12/24 13:52 SINGLE VIEW CHEST CLINICAL HISTORY: Generalized weakness. FINDINGS: An AP, portable, upright chest radiograph is compared to study dated 10/06/2024 and correlated with chest CT dated 09/11/2023. The patient's head obscures the apices. The heart is enlarged noting atherosclerotic calcification of the thoracic aorta. The pulmonary vasculature is noncongested. Chronic interstitial thickening is similar to previous. Scarring/atelectasis is noted at the lung bases. No airspace consolidation or large pleural effusion is identified. No pneumothorax is seen. The skeletal structures are osteopenic. The bony thorax is grossly intact. Degenerative change is noted in the thoracic spine. IMPRESSION: Cardiomegaly with no acute cardiopulmonary abnormality identified. ACT 112: Negative or not required by law. Electronically signed by: Efrain Castillo M.D. 12/12/2024 2:18 PM PG Care Time/CCT Total # of Minutes Spent Total Time Spent with Patient: Total time spent is greater than 50% in coordination of care (as documented) at patient's floor/unit and/or counseling patient: Coding Level of Care Code 09886 INT INP/OBS CARE 3/75MIN Diagnoses Hypertension I10 Hypertension type: unspecified Elevated troponin R79.89 Acute UTI N39.0 Dyslipidemia E78.5 CAD (coronary artery disease) I25.10 (1) Hypertension Hypertension type: unspecified Qualified Code(s): I10 - Essential (primary) hypertension
[2024-12-12] MEDS: LABETALOL HCL IV 5 MG/ML 20ML IV STA (20:26)
[2024-12-12] MEDS ORDERED: ONDANSETRON INJ 2 MG/ML 2 ML VIAL IV PRN (21:32)
[2024-12-12] MEDS ORDERED: hydrALAZINE 10 MG TAB PO PRN (21:32)
[2024-12-12] MEDS ORDERED: ACETAMINOPHEN 325 MG TAB PO PRN (21:32)
[2024-12-12] MEDS ORDERED: DOCUSATE SODIUM 100 MG CAP PO PRN (21:32)
[2024-12-12] MEDS: MAGNESIUM SULFATE / D5W 1 GM/100 ML BAG IV ONE (22:56)
[2024-12-13 07:37] LABS: Hematocrit (blood only) 31.7 % (37.0-47.0); Hemoglobin 10.1 g/dl (12.0-16.0); Mean Corpuscular Hemoglobin 28.3 pg (25.0-34.0); Mean Corpuscular Volume 88.8 fL (80.0-100.0); Platelet Count 176 K/uL (130-400); RDW Standard Deviation 43.2 fL (36.4-46.3); Red Blood Count 3.57 M/uL (4.20-5.40); White Blood Count 6.08 K/ul (4.8-10.8)
[2024-12-13] MEDS: PERFLUTREN LIPID MICROSPHERE (DEFINITY) IV ONE (07:41)
[2024-12-13 07:53] LABS: Anion Gap 6.0 (3-11); Blood Urea Nitrogen 17.0 mg/dl (6-23); Calcium 8.7 mg/dl (8.6-10.3); Carbon Dioxide 28.0 mmol/L (21-32); Chloride 109.0 mmol/L (98-107); Creatinine Clr Calc Pharmacy 68.9 ml/min; Glucose 90.0 mg/dl (70-99(Fasting)); Potassium 3.4 mmol/L (3.5-5.1); Sodium 143.0 mmol/L (136-145)
[2024-12-13] MEDS: ATORVASTATIN 40 MG TAB PO SCH (08:28)
[2024-12-13] MEDS: METOPROLOL SUCC 25MG EXT REL TAB PO SCH (08:28)
[2024-12-13] MEDS: LEVOTHYROXINE SODIUM 100 MCG TABLET PO SCH (08:28)
[2024-12-13] MEDS: ASPIRIN 81 MG ECTAB PO SCH (08:28)
[2024-12-13] MEDS: POTASSIUM CHLORIDE CRTAB 20 MEQ TABCR PO STA (10:43)
[2024-12-13] MEDS: MAGNESIUM SULFATE / D5W 1 GM/100 ML BAG IV SCH (10:45)
[2024-12-13] MEDS: CEFEPIME 2000MG 2,000 MG/20 ML SYR IV SCH (16:38)
--- NOTE | 2024-12-13 17:26 | XCELERA ---
[id number] [id number]
--- NOTE | 2024-12-13 18:01 | Hospitalist Progress Note ---
Date of Service December 13, 2024 Assessment & Plan (1) Hypertension: (2) Elevated troponin: (3) Acute UTI: (4) Dyslipidemia: (5) CAD (coronary artery disease): Plan 79-year-old female with history of hypertension, hyperlipidemia coronary artery disease presenting from the urology office with markedly elevated blood pressure and dizziness. #Hypertension recorded at 223/86 in Urology office, 170/76 on arrival to ED. She took an extra po metoprolol while in the office and 10 mg lisinopril in ED Continue home medication metoprolol 25 mg p.o. daily, lisinopril 10 mg p.o. daily Hydralazine 10 mg p.o. every 8 hours as needed for blood pressure greater than 180/110 - has been at goal for her age today, reviewed #Myocardial demand ischemia from severe hypertension #Aortic stenosis #Coronary artery diseasestatus post stent placement to RCA and circumflex in 2009 Troponin = 19.3-->65.9--> downtrending. EKG with sinus rhythm at 80 bpm, first- degree AV block, left bundle branch block present which was present on prior EKGs No evidence of ACS 11/25- TTE reviewed - EF 60-65%. mild global LVH with severe asymmetric basal segment hypertrophy, no rwma's, at least moderate , mild TR, grade 1 diastolic dysfunction Continue home aspirin 81 mg daily, atorvastatin 40 mg daily, metoprolol 25 mg daily and lisinopril 10 mg daily #UTIpatient with pyuria, WBCs greater than 50 on UA, fever without alternative source at [facility] I only see three UAs and no positive urine cultures until today. Reviewed clinic note from [facility] 09/13 - 5 UTIs since May mainly treated at urgent cares, different abx given, referred to Dr. Newsome Has chronic urinary frequency and incontinence following a surgery. Might have chronically positive Udip. Renal US 11/01 with possibly complex L renal cyst - discussed with pharmacist - Greg. cloacae on culture broadened abx to cefepime pending sensis - start vaginal estrace cream for UTI prevention at discharge - generally would avoid treating for positive UA only without culture or clearcut (different than baseline) symptoms #Hyperlipidemiachronic, stable Continue atorvastatin 40 mg p.o. daily #HypothyroidismTSH on 12/12/2024 within normal limits at 1.367 Continue Synthroid 100 mcg p.o. daily DVT ppx - enoxaparin Admission and Anticipated Discharge Date Admission Date: December 12, 2024 Subjective Had cysto recently. Frequent UTIs Presented in Urology office lightheaded, diaphoretic and hypertensive Febrile today to Tmax 38.1 Does feel better No specific dysuria however Physical Exam 2 Physical Exam: Last 24h vitals reviewed GEN: no acute distress, sitting in chair eating HEENT: pupils equal, sclerae anicteric, moist MM RESP: normal WOB, CTAB CV: reg no mrg ABD: soft/nt/nd +BT : no nino SKIN: warm and dry, no generalized rashes NEURO: AOx person, place, and situation. Face symmetric, speech normal, moves 4 ext spontaneously and equally Results & Data Results & Data Vital Signs (Past 12 Hours) Vital Signs Temp Pulse Pulse Resp BP Pulse Ox O2 Del Method 12/13/24 16:00 59 L 12/13/24 15:25 36.5 C 62 20 158/69 H 96 Room Air 12/13/24 11:26 36.3 C L 79 20 145/66 H 96 Room Air 12/13/24 09:00 Room Air 12/13/24 07:59 38.1 C H 61 20 125/54 L 92 Room Air 12/13/24 07:04 53 L Laboratory Results 12/13/24 06:52 12/13/24 06:52 PG Care Time/CCT Total # of Minutes Spent Total Time Spent with Patient: Total time spent is greater than 50% in coordination of care (as documented) at patient's floor/unit and/or counseling patient: Coding Level of Care Code 37965 SUB INP/OBS CARE 3/50MIN Diagnoses Hypertension I10 Hypertension type: unspecified Elevated troponin R79.89 Acute UTI N39.0 Dyslipidemia E78.5 CAD (coronary artery disease) I25.10 (1) Hypertension Hypertension type: unspecified Qualified Code(s): I10 - Essential (primary) hypertension
[2024-12-13] MEDS ORDERED: cefTRIAXone SODIUM 2,000 MG/50 ML BAG IV SCH (19:00)
[2024-12-14] MEDS: ENOXAPARIN INJ 40 MG/0.4 ML SYR SQ SCH (07:50)
--- NOTE | 2024-12-14 18:16 | Hospitalist Progress Note ---
Date of Service December 14, 2024 Assessment & Plan (1) Hypertension: (2) Elevated troponin: (3) Acute UTI: (4) Dyslipidemia: (5) CAD (coronary artery disease): Plan 79-year-old female with history of hypertension, hyperlipidemia coronary artery disease presenting from the urology office with markedly elevated blood pressure and dizziness. #Hypertension recorded at 223/86 in Urology office, 170/76 on arrival to ED. She took an extra po metoprolol while in the office and 10 mg lisinopril in ED Continue home medication metoprolol 25 mg p.o. daily, lisinopril Hydralazine 10 mg p.o. every 8 hours as needed for blood pressure greater than 180/110 - remains a little above her age-appropriate goal, increase lisinopril to 20 mg daily #Myocardial demand ischemia from severe hypertension #Aortic stenosis #Coronary artery diseasestatus post stent placement to RCA and circumflex in 2009 Troponin = 19.3-->65.9--> downtrending. EKG with sinus rhythm at 80 bpm, first- degree AV block, left bundle branch block present which was present on prior EKGs No evidence of ACS 11/25- TTE reviewed - EF 60-65%. mild global LVH with severe asymmetric basal segment hypertrophy, no rwma's, at least moderate , mild TR, grade 1 diastolic dysfunction Continue home aspirin 81 mg daily, atorvastatin 40 mg daily, metoprolol, lisinopril #Enterobacter cloacae UTI complicated UTI because of history of bladder reconstruction - continue cefepime pending sensis - start vaginal estrace cream for UTI prevention at discharge - generally would avoid treating for positive UA only without culture or clearcut (different than baseline) symptoms - discussed with Dr. Newsome - she will follow up with him #Hyperlipidemiachronic, stable Continue atorvastatin 40 mg p.o. daily #HypothyroidismTSH on 12/12/2024 within normal limits at 1.367 Continue Synthroid 100 mcg p.o. daily DVT ppx - enoxaparin Home once sensis available, if there is an oral option Admission and Anticipated Discharge Date Admission Date: December 12, 2024 Subjective Feels fine right now. Has had urinary incontinence and trouble with dysuria and UTIs since bladder reconstruction surgery some years ago Physical Exam Physical Exam: Last 24h vitals reviewed GEN: no acute distress, again sitting in chair exam unchanged 12/14 HEENT: pupils equal, sclerae anicteric, moist MM RESP: normal WOB, CTAB CV: reg no mrg ABD: soft/nt/nd +BT : no nino SKIN: warm and dry, no generalized rashes NEURO: AOx person, place, and situation. Face symmetric, speech normal, moves 4 ext spontaneously and equally Results & Data Results & Data Vital Signs (Past 12 Hours) Vital Signs Temp Pulse Pulse Resp BP BP Pulse Ox 12/14/24 14:45 36.4 C L 62 18 169/54 H 100 12/14/24 14:40 12/14/24 08:17 36.4 C L 69 20 163/80 H 96 12/14/24 08:10 12/14/24 07:03 53 L O2 Del Method 12/14/24 14:45 Room Air 12/14/24 14:40 Room Air 12/14/24 08:17 Room Air 12/14/24 08:10 Room Air 12/14/24 07:03 Laboratory Results Micro - >100K E. cloacae sensis pending PG Care Time/CCT Total # of Minutes Spent Total Time Spent with Patient: Total time spent is greater than 50% in coordination of care (as documented) at patient's floor/unit and/or counseling patient: Coding Level of Care Code 43602 SUB INP/OBS CARE 2MIN Diagnoses Hypertension I10 Hypertension type: unspecified Elevated troponin R79.89 Acute UTI N39.0 Dyslipidemia E78.5 CAD (coronary artery disease) I25.10 (1) Hypertension Hypertension type: unspecified Qualified Code(s): I10 - Essential (primary) hypertension
[2024-12-14 23:11] VITALS: O2SAT 96
[2024-12-15 07:55] VITALS: BP 167/71; PULSE 59; RESP 16; TEMP 97.7
[2024-12-15 08:59] LABS: IMP Carbapenemase NOT DETECTED (NotDetected); KPC Carbapenemase NOT DETECTED (NotDetected); NDM Carbapenemase NOT DETECTED (NotDetected); OXA48 Carbapenemase NOT DETECTED (NotDetected); VIM Carbapenemase NOT DETECTED (NotDetected)
[2024-12-15] MEDS: CIPROFLOXACIN 500 MG TAB PO SCH (09:57)
--- NOTE | 2024-12-15 20:00 | Discharge Summary ---
Discharge Summary Date of Service December 15, 2024 Principal Dx & Hospital Course #1 = Principal Diagnosis (1) Hypertension: (2) Elevated troponin: (3) Acute UTI: (4) Dyslipidemia: (5) CAD (coronary artery disease): Plan 79-year-old female with history of hypertension, hyperlipidemia coronary artery disease presenting from the urology office with markedly elevated blood pressure and dizziness. #Hypertensive urgency recorded at 223/86 in Urology office, 170/76 on arrival to ED. She took an extra po metoprolol while in the office and 10 mg lisinopril in ED Continued home medication metoprolol 25 mg p.o. daily, lisinopril By evening of admission her BP was back in acceptable range - remained a little above her age-appropriate goal, increased lisinopril to 20 mg daily #Myocardial demand ischemia from severe hypertension #Aortic stenosis #Coronary artery diseasestatus post stent placement to RCA and circumflex in 2009 Troponin = 19.3-->65.9--> downtrending. EKG with sinus rhythm at 80 bpm, first- degree AV block, left bundle branch block present which was present on prior EKGs No evidence of ACS 11/25- TTE reviewed - EF 60-65%. mild global LVH with severe asymmetric basal segment hypertrophy, no rwma's, at least moderate , mild TR, grade 1 diastolic dysfunction Continue home aspirin 81 mg daily, atorvastatin 40 mg daily, metoprolol, lisinopril #Enterobacter cloacae UTI complicated UTI because of history of bladder reconstruction. I think this was a true UTI - she had dysuria, fever>38.0, lack of another explanation for fever/malaise - treated in hospital with cefepime but sensis came back intermediate to this bacteria. Has sulfa allergy so started on oral cipro to complete the course - start vaginal estrace cream for UTI prevention at discharge - generally would avoid treating for positive UA only without culture or clearcut (different than baseline) symptoms - discussed with Dr. Newsome - she will follow up with him #Hyperlipidemiachronic, stable Continue atorvastatin 40 mg p.o. daily #HypothyroidismTSH on 12/12/2024 within normal limits at 1.367 Continue Synthroid 100 mcg p.o. daily Notes For Next Care Provider Difficult to evaluate when she has UTI or bacteriuria - has chronic incontinence and urinary frequency, postsurgical bladder, might have chronically positive UA Added vaginal estrace Follow up with Dr. Newsome Medication Changes From Visit sea, estrace Admission HPI Per Admitting Provider Rajani Roy is an 79yo female with history of hypertension, hyperlipidemia, coronary artery disease status post stent x 2 (RCA and Cx in 2009), Mild (by echo in 2023), RICARDO not on CPAP presenting from urology office for episode of markedly elevated blood pressure and presyncope. Patient follows with urology for recurrent UTIs. She had an appointment today. While in the waiting room, she felt hot and lightheaded as if she might pass out. They took her back to her room and checked her blood pressure which was found to be 223/86. Patient did take a second metoprolol while in the waiting room which she thought might help with the symptoms. She reports that the symptoms lasted approximately 15 to 20 minutes then resolved. She was subsequently sent to the emergency room. Patient denies chest pain, cough, shortness of breath, headache, dizziness, focal numbness/tingling/weakness. Has no additional complaints at this time. ER course: Ceftriaxone 2 g Magnesium 1 g Lisinopril 10 mg p.o. Discharge Exam Last 24h vitals reviewed GEN: no acute distress, again sitting in chair exam unchanged 12/15 HEENT: pupils equal, sclerae anicteric, moist MM RESP: normal WOB, CTAB CV: reg no mrg ABD: soft/nt/nd +BT : no nino SKIN: warm and dry, no generalized rashes NEURO: AOx person, place, and situation. Face symmetric, speech normal, moves 4 ext spontaneously and equally Discharge Plan Discharge Items Patient Disposition: Home - Self-Care Reason For Visit: HYPERTENSION, PRE-SYNCOPE Discharge Diagnosis: UTI, hypertensive urgency, presyncope Condition on Discharge: Good Activity: Resume your previous activity Non-emergency contact: Primary Care Provider and Urologist Call non-emergency contact if: you have any medication questions, your symptoms worsen and you have a fever Follow-up/Referrals: Tricia Kovacs PA-C [Primary Care Provider] - 12/18/24 9:00 am Rhys Newsome MD [Physician] - Diet: Low Sodium (2gm) Addtl Attending Provider Instructions: You were treated for UTI with enterobacter, which can commonly cause UTI -complete a course of ciprofloxacin -this antibiotic can be associated with some rare but significant side effects for example, tendon injury or rupture (shoulder, Achilles), confusion, low blood sugar. Nevertheless its commonly used for UTI and is the only oral option for this bacteria. I recommend vaginal estrace cream for UTI prevention and reschedule an appt with Dr. Newsome For high blood pressure - increase lisinopril to 20 mg daily and follow up in primary care You have some moderate aortic stenosis on Echo, the high blood pressure and infection caused some mild cardiac strain but your heart is squeezing normally It was a pleasure taking care of you in the hospital, Gissel Dykes MD Pending Studies at Discharge: No Stand-Alone Forms: My [facility] [employer], Smoking Cessation Medications and DC Order Prescriptions: New lisinopril 20 mg Tablet 20 mg PO DAILY Qty: 30 0RF estradiol [Estrace] 0.01 % (0.1 mg/gram) cream See Rx Instructions .ROUTE .COMPLEX Qty: 42.5 3RF Rx Instructions: 2 grams PV daily for 14 days then 1 gram PV 3 times a week for UTI prevention ciprofloxacin HCl 500 mg Tablet 500 mg PO BID Qty: 19 0RF Continued levothyroxine 100 mcg tablet 100 mcg PO DAILY Qty: 40 0RF atorvastatin 40 mg tablet 40 mg PO DAILY Qty: 90 3RF cholecalciferol (vitamin D3) 125 mcg (5,000 unit) capsule 125 mcg PO DAILY Patient Comments: 12/12- otc unable to verify aspirin 81 mg tablet,delayed release (DR/EC) 81 mg PO DAILY Patient Comments: 12/12- otc unable to verify metoprolol succinate 25 mg tablet extended release 24 hr 25 mg PO DAILY Qty: 90 3RF Discontinued lisinopril 10 mg tablet 10 mg PO DAILY Qty: 90 3RF Discharge Orders: Discharge Order (Routine); Ordered 12/15/24 Ordered By: Gissel Nguyen/Other Patient Handouts: Hypomagnesemia Dc, Eating Heart-Healthy Foods Admission Data Admit Date/Time: 12/12/24 19:49 Attending Provider: Gissel Dykes Admit Provider: Siomara Fregoso Primary Care Provider: Tricia Kovacs Other Interventions: Discharge Summary Assessment (RN) Last Done: 12/15/24 11:37 Hospital Stay Data Pending Results Patient Have Any Pending Studies at Discharge: No Discharge Instructions Given to Patient (Per Discharging Provider) You were treated for UTI with enterobacter, which can commonly cause UTI -complete a course of ciprofloxacin -this antibiotic can be associated with some rare but significant side effects for example, tendon injury or rupture (shoulder, Achilles), confusion, low blood sugar. Nevertheless its commonly used for UTI and is the only oral option for this bacteria. I recommend vaginal estrace cream for UTI prevention and reschedule an appt with Dr. Newsome For high blood pressure - increase lisinopril to 20 mg daily and follow up in primary care You have some moderate aortic stenosis on Echo, the high blood pressure and infection caused some mild cardiac strain but your heart is squeezing normally It was a pleasure taking care of you in the hospital, Gissel Dykes MD Total Time Total Time Spent Total Time Spent (In Minutes): I personally spent: 40 minutes today on clinical care activities including: reviewing chart notes and vital signs reviewing micro examining and counseling the patient writing orders writing prescriptions, discharge instructions documentation Coding Level of Care Code 28655 INP/OBS DISCH >30 MIN Diagnoses Hypertension I10 Hypertension type: unspecified Elevated troponin R79.89 Acute UTI N39.0 Dyslipidemia E78.5 CAD (coronary artery disease) I25.10
--- NOTE | 2024-12-16 09:44 | Electrocardiogram Report ---
Test Reason : Blood Pressure : */* mmHG Vent. Rate : 80 BPM Atrial Rate : 80 BPM P-R Int : 212 ms QRS Dur : 160 ms QT Int : 456 ms P-R-T Axes : 97 -18 121 degrees QTcB Int : 525 ms Sinus rhythm with 1st degree A-V block Left bundle branch block Abnormal ECG When compared with ECG of 06-Oct-2024 15:12, No significant change was found Confirmed by Gordon Narayan ([id number]) on 12/16/2024 9:43:57 AM Referred By: REFERRED SELF Confirmed By: Gordon Narayan
== END 2024-12-15 14:25 | disposition home or self-care (01) ==
LOC: ED 13:42 → 2W 13:42 → SUATTDRO 19:49 → 2W 21:00 → 3W 12-14 14:42

== ENCOUNTER 2025-01-02 12:53 | Inpatient (IN) ==
[2025-01-02 13:52] LABS: Base Excess VBG 3.5 mEq/L; HCO3 VBG 29 mmol/L; Oxygen Saturation VBG < 60.0 %; PCO2 VBG 47 mmHg (38-50); PO2 VBG 28 mmHg; pH VBG 7.40 (7.36-7.41)
[2025-01-02 13:53] LABS: Hematocrit (blood only) 39.8 % (37.0-47.0); Hemoglobin 12.6 g/dl (12.0-16.0); Immature Granulocytes # (auto) 0.02 K/uL (0.01-0.20); Immature Granulocytes % (auto) 0.3 %; Mean Corpuscular Hemoglobin 28.0 pg (25.0-34.0); Mean Corpuscular Volume 88.4 fL (80.0-100.0); Platelet Count 204 K/uL (130-400); RDW Standard Deviation 42.9 fL (36.4-46.3); Red Blood Count 4.50 M/uL (4.20-5.40); White Blood Count 6.77 K/ul (4.8-10.8)
--- NOTE | 2025-01-02 14:06 | XRay Report ---
XR chest 1V portable CLINICAL HISTORY: Chest pain, nonspecific COMPARISON STUDY: 12/12/2024 FINDINGS: Stable cardiomegaly with mild pulmonary vascular congestion. No consolidation or pleural ef fusion. No pneumothorax. IMPRESSION: Mild CHF. ACT 112: Negative or not required by law. Electronically signed by: Maxim Alexis M.D. 01/02/2025 2:04 PM
[2025-01-02 14:11] LABS: Anion Gap 8 (3-11); Blood Urea Nitrogen 25 mg/dl (6-23); Calcium 10.0 mg/dl (8.6-10.3); Carbon Dioxide 27 mmol/L (21-32); Chloride 108 mmol/L (98-107); Glucose 111 mg/dl (70-99(Fasting)); Lipase 26 U/L (11-82); Potassium 4.9 mmol/L (3.5-5.1); Sodium 143 mmol/L (136-145)
[2025-01-02 14:27] LABS: INR 1.0 (0.9-1.1); Influenza A virus by PCR Negative (Neg); Influenza B virus by PCR Negative (Neg); Partial Thromboplastin Time 27 Seconds (21-31); Prothrombin Time 11.0 Seconds (9.0-12.0); SARS CoV2 RNA(COVID-19) Ceph NEGATIVE (Negative)
--- NOTE | 2025-01-02 14:28 | Emergency Department Note ---
History of Present Illness General Chief Complaint: Shortness of Breath/Dyspnea Stated Complaint: HTN Time Seen by Provider: 01/02/25 13:22 History of Present Illness Provider Complaint: shortness of breath Onset (ago): day(s) (1) Severity: moderate Consistency/Duration: + progressively worsening Maximum Pain Intensity: 6 Relieved By: + upright position Exacerbated By: + lying flat Known history of: other (Aortic valve sclerosis) Associated symptoms: + abdominal pain; no chest pain, no pain with inspiration, no fever, no cough, no sputum production or no hemoptysis Home Medications Medication Instructions Recorded Confirmed Type cholecalciferol (vitamin D3) 125 125 mcg PO DAILY 01/05/23 12/12/24 History mcg (5,000 unit) capsule aspirin 81 mg tablet,delayed 81 mg PO DAILY 01/06/23 12/12/24 History release levothyroxine 100 mcg tablet 100 mcg PO DAILY #40 tabs 01/20/23 12/12/24 Rx atorvastatin 40 mg tablet 40 mg PO DAILY #90 tabs 09/27/24 12/12/24 Rx metoprolol succinate 25 mg 25 mg PO DAILY #90 tabs 09/27/24 12/12/24 Rx tablet,extended release 24 hr ciprofloxacin HCl 500 mg tablet 500 mg PO BID #19 tabs 12/15/24 Rx estradiol 0.01% (0.1 mg/gram) See Rx Instructions .Route 12/15/24 Rx vaginal cream (Estrace) .COMPLEX #42.5 grams lisinopril 20 mg tablet 20 mg PO DAILY #30 tabs 12/15/24 Rx Allergies Allergy/AdvReac Type Severity Reaction Status Date / Time Sulfa (Sulfonamide Allergy Intermediate Hives Verified 10/06/24 17:32 Antibiotics) Past Med/Surg History Problem List (Updated 01/02/25 @ 16:16 by Bobby Momin MD) Heart disease (Acute) Dyspnea (Acute) CHF (congestive heart failure) (Acute) Hypomagnesemia (Acute) Acute UTI (Acute) Elevated troponin (Acute) Hypertension (Acute) Venous stasis ulcers Left leg cellulitis Acute diarrhea CKD (chronic kidney disease), stage III Acute gastroenteritis Hypotension Cardiomyopathy Elevated troponin Required emergent intubation Respiratory failure Infection due to parainfluenza virus 3 (Acute) Flu-like symptoms (Acute) Generalized weakness (Acute) S/P coronary artery stent placement (2009) Cx, RCA Carotid artery stenosis Hypertension Dyslipidemia CAD (coronary artery disease) Aortic valve sclerosis Medical History IV infiltration Orthostasis Accidental fall LBBB (left bundle branch block) TIA (transient ischemic attack) Sleep apnea Surgical History History of knee joint replacement Social History Smoking Status: Never smoker Second Hand Exposure: No; Hx Alcohol Use: No Hx Substance Use: No Preferred Language: Yoruba Communication Ability: Effective 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 Beliefs That Will Affect Care: None Current Living Situation: Family Feels Safe at Home: Yes Assistive Devices: Walker Physical Exam 2 Vital Signs: Vital Signs - 24 hr 01/02/25 13:14 01/02/25 13:34 01/02/25 13:47 Temperature 37.1 C Temperature Source Temporal Artery Sc an Pulse Rate 88 83 Pulse Rate [Right Finger] Respiratory Rate 24 Respiratory Effort / Characteristics Short of Breath Respiratory Depth Normal Respiratory Patter n Blood Pressure 208/89 H Blood Pressure [Ri ght Arm] Blood Pressure Radha n 128 Blood Pressure Radha n [Right Arm] Pulse Oximetry 98 Oxygen Delivery Me thod Room Air Room Air Sepsis Recent Feve r Within 48 Hours No Sepsis New/Unexpla ined Change in Men jesus Status No Sepsis Action Take n by Nursing No Action Required 01/02/25 14:37 01/02/25 15:02 01/02/25 15:06 Temperature Temperature Source Pulse Rate Pulse Rate [Right Finger] 69 72 Respiratory Rate 24 18 Respiratory Effort / Characteristics Non-Labored Sponta neous Non-Labored Sponta neous Non-Labored Sponta neous Respiratory Depth Normal Normal Normal Respiratory Patter n Regular Regular Blood Pressure Blood Pressure [Ri ght Arm] 195/89 H 168/63 H Blood Pressure Radha n Blood Pressure Radha n [Right Arm] 124 98 Pulse Oximetry 99 98 Oxygen Delivery Me thod Room Air Room Air Sepsis Recent Feve r Within 48 Hours Sepsis New/Unexpla ined Change in Men jesus Status Sepsis Action Take n by Nursing Physical Exam: Physical Exam GENERAL: oriented to person, place, and time. appears well-developed and well- nourished. HENT: Exam performed. - Head: Normocephalic and atraumatic. EYES: Conjunctivae and EOM are normal. Right eye exhibits no discharge. Left eye exhibits no discharge. No scleral icterus. NECK: Normal range of motion. Neck supple. No JVD present. CV: Normal rate, regular rhythm, normal heart sounds and intact distal pulses. 2+ pitting edema of the bilateral lower extremities. Palpable radial pulses bue. PULM/CHEST: Mild inspiratory rales at the bases. ABD: The abdomen is soft. There is no tenderness. NEURO: Motor and sensation grossly intact. Course Course 1322: The patient was evaluated in room D5. A complete history and physical exam was performed Cardiac monitoring: An order was placed for continuous cardiac monitoring. The monitor shows a rate of 80 with sinus rhythm interpreted by me 1614: Vital signs improved status post administration of sublingual nitroglycerin and Lasix in the emergency department. Labs and imaging are concerning for the patient being fluid overloaded. Patient will be admitted to the [facility] Hospitalist team. 1623: Spoke with Dr. Lambert who will evaluate the patient for admission. Administered Medications Discontinued Medications Furosemide (Furosemide 40 Mg/4 Ml Vial) 40 mg IV ONE ONE Stop: 01/02/25 14:38 Last Admin: 01/02/25 14:46 Dose: 40 mg Documented By: SHANNAN Nitroglycerin (Nitroglycerin Sl 0.4 Mg/Tab Tab) 0.4 mg SL NOW STA Stop: 01/02/25 14:38 Last Admin: 01/02/25 14:45 Dose: 0.4 mg Documented By: SHANNAN Medical Decision Making Medical Records Attestation: I reviewed the patient's medical records. Medical records reviewed. Patient had an echocardiogram done in November 2024 which showed an ejection fraction of 6065% with concentric left ventricular hypertrophy and basal septal hypertrophy. There was severe left atrial enlargement. There is at least moderate aortic stenosis. Laboratory Data Attestation: I reviewed the patient's lab results. 01/02/25 13:40 01/02/25 13:40 Lab Results 01/02/25 01/02/25 Range/Units 13:40 13:42 WBC 6.77 (4.8-10.8) K/ul RBC 4.50 (4.20-5.40) M/uL Hgb 12.6 (12.0-16.0) g/dl POC Hgb 12.9 (12.0-16.0) g/dl Hct 39.8 (37.0-47.0) % POC Hct 38 (37-47) % MCV 88.4 (80.0-100.0) fL MCH 28.0 (25.0-34.0) pg MCHC 31.7 L (32.0-36.0) g/dL RDW Std Deviation 42.9 (36.4-46.3) fL RDW Coeff of Niki 13.2 (11.5-14.5) % Plt Count 204 (130-400) K/uL MPV 11.4 (9.4-12.4) fL Immature Gran % (Auto) 0.3 % Neut % (Auto) 59.1 % Lymph % (Auto) 27.9 % Ransom % (Auto) 8.4 % Eos % (Auto) 3.1 % Baso % (Auto) 1.2 % Neut # (Auto) 4.00 (1.40-6.50) K/uL Lymph # (Auto) 1.89 (1.20-3.40) K/uL Ransom # (Auto) 0.57 (0.11-0.59) K/uL Eos # (Auto) 0.21 (0.00-0.50) K/uL Baso # (Auto) 0.08 (0.00-0.20) K/uL Immature Gran # (Auto) 0.02 (0.01-0.20) K/uL PT 11.0 (9.0-12.0) Seconds INR 1.0 (0.9-1.1) APTT 27 (21-31) Seconds PTT Ratio 1.0 D-Dimer 2830 H* (0-500) ug/L FEU VBG pH 7.40 (7.36-7.41) VBG pCO2 47 (38-50) mmHg VBG pO2 28 mmHg VBG HCO3 29 mmol/L VBG O2 Saturation < 60.0 % VBG Base Excess 3.5 mEq/L POC Sodium 143 (135-144) mmol/L Sodium 143 (136-145) mmol/L POC Potassium 5.0 (3.3-5.0) mmol/L Potassium 4.9 (3.5-5.1) mmol/L POC Chloride 107 (101-112) mmol/L Chloride 108 H (98-107) mmol/L Carbon Dioxide 27 (21-32) mmol/L POC Total CO2 24 (24-31) mmol/L Anion Gap 8 (3-11) POC Anion Gap 19.0 (16-25) mmol/L POC BUN 26 H (7-18) mg/dl BUN 25 H (6-23) mg/dl Creatinine 0.72 (0.6-1.2) mg/dl POC Creatinine 0.8 (0.6-1.3) mg/dl Est Cr Clr Drug Dosing Not Reportable eGFR 83.95 BUN/Creatinine Ratio 34.7 H (10-20) Glucose 111 H (70-99(Fasting)) mg/dl POC Glucose (other) 109 H (70-99) mg/dl Calcium 10.0 (8.6-10.3) mg/dl POC Ioniz Calcium Hue 1.18 (1.12-1.32) mmol/l Magnesium 1.9 (1.7-2.4) mg/dl Troponin I High Sens 20.5 H (0-14) pg/ml B-Natriuretic Peptide 257 H (0-100) pg/ml Lipase 26 (11-82) U/L SARS-CoV-2 (PCR) NEGATIVE (Negative) Influenza Type A (PCR) Negative (Neg) Influenza Type B (PCR) Negative (Neg) RSV (RT-PCR) Negative (Neg) Imaging Data Radiologist's Impression: Chest X-Ray 01/02/25 13:27 XR chest 1V portable CLINICAL HISTORY: Chest pain, nonspecific COMPARISON STUDY: 12/12/2024 FINDINGS: Stable cardiomegaly with mild pulmonary vascular congestion. No consolidation or pleural effusion. No pneumothorax. IMPRESSION: Mild CHF. ACT 112: Negative or not required by law. Electronically signed by: Maxim Alexis M.D. 01/02/2025 2:04 PM Abdomen/Pelvis CT 01/02/25 13:57 CT SCAN OF THE ABDOMEN AND PELVIS WITH IV CONTRAST CLINICAL HISTORY: Abdominal pain. COMPARISON STUDY: Renal ultrasound November 01, 2024. TECHNIQUE: Following the IV administration of 94 cc of Optiray 320, CT scan of the abdomen and pelvis is performed from the lung bases to the proximal femora. Images are reviewed in the axial, sagittal, and coronal planes. IV contrast was administered without complication. A dose lowering technique was utilized adhering to the principles of ALARA. FINDINGS: Please note that the chest CT will be reported separately. No pneumatosis, free air or portal venous gas is present. There are no hepatic lesions. There is no biliary or pancreatic ductal dilatation. There are gallstones within the gallbladder. There is no CT evidence for acute cholecystitis. Water attenuation bilateral renal lesions represent cysts. Several small left renal calculi measure up to 3 mm. There are no ureteral calculi. There is no hydronephrosis. Bladder wall thickening with adjacent stranding is noted. There is prominent mucosal enhancement of the bladder. There is no evidence for a bowel obstruction. Colonic diverticulosis. There is no evidence for acute diverticulitis. There is no evidence for a bowel obstruction. Extensive aortoiliac atherosclerotic plaque is noted. There is also extensive atherosclerotic plaque within the branch vessels. IMPRESSION: 1. Bladder wall thickening with adjacent stranding which could be correlated with urinalysis to evaluate for cystitis. 2. Left nephrolithiasis. No ureteral calculi or hydronephrosis. 3. Cholelithiasis. No CT evidence for acute cholecystitis. 4. Colonic diverticulosis. No evidence for acute diverticulitis. ACT 112: Negative or not required by law. Electronically signed by: Zion Juarez M.D. 01/02/2025 4:03 PM Chest CTA 01/02/25 13:57 CT angio chest PE protocol CT DOSE: 2895.63 mGy.cm HISTORY: sob. TECHNIQUE: Multiple CTA images of the chest were obtained after the intravenous administration of 90 ml Optiray. Coronal and sagittal MIPS were obtained from the axial data set and were submitted for review. All measurements were obtained according to NASCET criteria. A dose lowering technique was utilized adhering to the principles of ALARA. COMPARISON STUDY: 09/11/2023 FINDINGS: There is no pulmonary consolidation or pleural effusion. No pneumothorax. No enlarged adenopathy. No pericardial effusion. There are diffuse coronary artery and aortic calcifications. There are aortic and mitral valvular calcifications. No thoracic aortic aneurysm or dissection. No pulmonary embolism seen. There are diffuse degenerative changes at the thoracic spine. IMPRESSION: No pulmonary embolism or pneumonia. ACT 112: Negative or not required by law. The above report was generated using voice recognition software. It may contain grammatical, syntax or spelling errors. Electronically signed by: Maxim Alexis M.D. 01/02/2025 4:04 PM ECG Data Attestation: I personally reviewed and interpreted this ECG as follows: Interpretation: Sinus rhythm with a rate of 85. NJ 236 QRS 160 QTc 521. Left bundle branch block present. Sgarbossa negative. No significant change from the EKG done in November 2024. [facility] Narrative 1322: The patient was evaluated in room D5. A complete history and physical exam was performed Cardiac monitoring: An order was placed for continuous cardiac monitoring. The monitor shows a rate of 80 with sinus rhythm interpreted by me 1614: Vital signs improved status post administration of sublingual nitroglycerin and Lasix in the emergency department. Labs and imaging are concerning for the patient being fluid overloaded. Patient will be admitted to the [facility] hospitalist team. 1623: Spoke with Dr. Lambert who will evaluate the patient for admission. Impression & Plan CHF (congestive heart failure), Dyspnea, Heart disease Discharge Plan Visit Data Chief Complaint: Shortness of Breath/Dyspnea Stated Complaint: HTN ED Provider: Bobby Momin Discharge Problem: CHF (congestive heart failure), Dyspnea, Heart disease Patient Disposition: Being Evaluated by Hospitalist Condition: Fair Forms Stand Alone Forms: My [facility] Prescriptions Prescriptions: No Action levothyroxine 100 mcg tablet 100 mcg PO DAILY Qty: 40 0RF atorvastatin 40 mg tablet 40 mg PO DAILY Qty: 90 3RF cholecalciferol (vitamin D3) 125 mcg (5,000 unit) capsule 125 mcg PO DAILY Patient Comments: 12/12- otc unable to verify aspirin 81 mg tablet,delayed release (DR/EC) 81 mg PO DAILY Patient Comments: 12/12- otc unable to verify metoprolol succinate 25 mg tablet extended release 24 hr 25 mg PO DAILY Qty: 90 3RF lisinopril 20 mg Tablet 20 mg PO DAILY Qty: 30 0RF estradiol [Estrace] 0.01 % (0.1 mg/gram) cream See Rx Instructions .ROUTE .COMPLEX Qty: 42.5 3RF Rx Instructions: 2 grams PV daily for 14 days then 1 gram PV 3 times a week for UTI prevention ciprofloxacin HCl 500 mg Tablet 500 mg PO BID Qty: 19 0RF Referrals Referrals: Tricia Kovacs PA-C [Primary Care Provider] -
[2025-01-02 14:45] LABS: Magnesium 1.9 mg/dl (1.7-2.4)
[2025-01-02] MEDS: NITROGLYCERIN SL 0.4 MG/TAB TAB SL STA (14:45)
[2025-01-02] MEDS: FUROSEMIDE 40 MG/4 ML VIAL IV ONE (14:46)
--- NOTE | 2025-01-02 14:47 | Electrocardiogram Report ---
Test Reason : Blood Pressure : */* mmHG Vent. Rate : 85 BPM Atrial Rate : 85 BPM P-R Int : 236 ms QRS Dur : 160 ms QT Int : 438 ms P-R-T Axes : 52 -28 132 degrees QTcB Int : 521 ms Sinus rhythm with 1st degree A-V block Left bundle branch block Abnormal ECG When compared with ECG of 12-Dec-2024 13:50, No significant change was found Confirmed by True Stallworth ([id number]) on 01/02/2025 2:46:53 PM Referred By: Confirmed By: True Stallworth
--- NOTE | 2025-01-02 16:04 | CT Scan Report ---
CT SCAN OF THE ABDOMEN AND PELVIS WITH IV CONTRAST CLINICAL HISTORY: Abdominal pain. COMPARISON STUDY: Renal ultrasound November 01, 2024. TECHNIQUE: Following the IV administration of 94 cc of Optiray 320, CT scan of the abdomen and pelvi s is performed from the lung bases to the proximal femora. Images are reviewed in the axial, sagittal , and coronal planes. IV contrast was administered without complication. A dose lowering technique wa s utilized adhering to the principles of ALARA. FINDINGS: Please note that the chest CT will be reported separately. No pneumatosis, free air or port al venous gas is present. There are no hepatic lesions. There is no biliary or pancreatic ductal dila tation. There are gallstones within the gallbladder. There is no CT evidence for acute cholecystitis. Water attenuation bilateral renal lesions represent cysts. Several small left renal calculi measure up to 3 mm. There are no ureteral calculi. There is no hydronephrosis. Bladder wall thickening with a djacent stranding is noted. There is prominent mucosal enhancement of the bladder. There is no eviden ce for a bowel obstruction. Colonic diverticulosis. There is no evidence for acute diverticulitis. Th ere is no evidence for a bowel obstruction. Extensive aortoiliac atherosclerotic plaque is noted. The re is also extensive atherosclerotic plaque within the branch vessels. IMPRESSION: 1. Bladder wall thickening with adjacent stranding which could be correlated with urinalysis to evalu ate for cystitis. 2. Left nephrolithiasis. No ureteral calculi or hydronephrosis. 3. Cholelithiasis. No CT evidence for acute cholecystitis. 4. Colonic diverticulosis. No evidence for acute diverticulitis. ACT 112: Negative or not required by law. Electronically signed by: Zion Juarez M.D. 01/02/2025 4:03 PM
--- NOTE | 2025-01-02 16:05 | CT Scan Report ---
CT angio chest PE protocol CT DOSE: 2895.63 mGy.cm HISTORY: sob. TECHNIQUE: Multiple CTA images of the chest were obtained after the intravenous administration of 90 ml Optiray. Coronal and sagittal MIPS were obtained from the axial data set and were submitted for r eview. All measurements were obtained according to NASCET criteria. A dose lowering technique was ut ilized adhering to the principles of ALARA. COMPARISON STUDY: 09/11/2023 FINDINGS: There is no pulmonary consolidation or pleural effusion. No pneumothorax. No enlarged adeno sharon. No pericardial effusion. There are diffuse coronary artery and aortic calcifications. There ar e aortic and mitral valvular calcifications. No thoracic aortic aneurysm or dissection. No pulmonary embolism seen. There are diffuse degenerative changes at the thoracic spine. IMPRESSION: No pulmonary embolism or pneumonia. ACT 112: Negative or not required by law. The above report was generated using voice recognition software. It may contain grammatical, syntax o r spelling errors. Electronically signed by: Maxim Alexis M.D. 01/02/2025 4:04 PM
--- NOTE | 2025-01-02 16:33 | History & Physical Report ---
Date of Service January 02, 2025 Assessment & Plan (1) Acute on chronic heart failure with preserved ejection fraction (HFpEF): (2) Hypertensive urgency: (3) Elevated troponin: (4) CAD (coronary artery disease): Plan This patient is an 79-year-old female with history of HTN, CAD s/p OZZIE to the RCA and circumflex in 2009, LBBB, hypertrophic cardiomyopathy, moderate aortic stenosis, right sided heart failure, carotid artery stenosis, HLD, hypothyroidism, RICARDO not on CPAP, obesity, venous stasis ulcers, CKD stage III, recurrent UTI, and TIA who presents to the ED with worsening shortness of breath over the last day. She also was noted to have worsening edema of the legs. On presentation, she was found to be quite hypertensive with a blood pressure of 208/89, but otherwise vital signs were normal. Of note, she was recently admitted for hypertensive emergency and discharged on 12/15/2024 with an increased dose of lisinopril. Her troponin was mildly elevated at 20, BNP was elevated at 257, D-dimer elevated at 2830, but CT angiogram of the chest negative for PE or pneumonia, negative for thoracic aortic aneurysm or dissection. She had some lower abdominal pain with urinary urgency and a CT of the abdomen/pelvis was performed which showed evidence of cystitis and she has been having blood in her urine today. She was given IV Lasix and sublingual nitroglycerin and had improvement in all of her symptoms as well as a reduction in her blood pressure. She will be admitted for acute on chronic HFpEF, and hypertensive urgency and gross hematuria #Acute on chronic HFpEF/hypertensive urgency/hypertrophic cardiomyopathy-unclear etiology but could be from uncontrolled hypertension. Most recent echo 12/18 with LVEF 60-65%, severe asymmetric basal septal hypertrophy, severe LAE, at least moderate , calcified MV and apparatus without regurgitation -Admit to PCU for arrhythmia monitoring - Was given IV Lasix in the ED-Will dose daily as needed based on renal function - Give amlodipine 2.5 mg p.o. x 1 now and then start 5 mg p.o. daily in the morning - Continue home lisinopril 20 mg daily and Toprol-XL 25 mg daily-will not further increase these doses at this time due to borderline hyperkalemia and bradycardia, respectively - Consult cardiology for further opinion given asymmetric severe basal hypertrophy, moderate aortic stenosis, recurrent hypertensive urgency, and acute on chronic HFpEF - Daily weights, strict I's and O's, low-sodium/heart healthy diet, fluid restriction 1500 mL/day - Follow BMP, magnesium in the morning #CAD/JASPREET/HLD/moderate /history of TIA/myocardial demand ischemia-troponin mildly elevated at 20 on admission, ECG with unchanged LBBB and first degree AV block and sinus rhythm. With history of OZZIE to the RCA and circumflex. Not having chest pain here. - Trend serial troponin - No need for repeat echocardiogram at this time unless troponin becomes significantly elevated - Continue home aspirin, atorvastatin, lisinopril, metoprolol #Gross hematuria/history of recurrent UTI-with gross hematuria in the ED noted and with symptoms of urinary urgency and frequency. There are many RBCs on UA but [address] A/P with thickened inflamed bladder wall possibly consistent with cystitis. She has a history of bladder repair surgery and has an appointment pending with urology here for the first time in a few weeks. She has possibly complex renal cysts seen on previous imaging. - Send for urine culture despite lack of pyuria - Start empiric Cipro - Follow CBC #Anemia-Hgb mildly low at 10-12, MCV normal. With recurrent gross hematuria pending urology evaluation. Recent TSH normal - Check iron studies, B12, folate in the morning - Follow CBC #RICARDO not on CPAP/obesity BMI 36.6 - Needs weight loss - Will find out why not on CPAP #Hypothyroidism-recent TSH normal - Continue home levothyroxine DVT prophylaxis-Lovenox SQ low-dose with caution given hematuria, SCDs Disposition-admit to PCU History of Present Illness Chief Complaint: Shortness of breath Primary Care Provider: Tricia Kovacs This patient is an 79-year-old female with history of HTN, CAD s/p OZZIE to the RCA and circumflex in 2009, LBBB, hypertrophic cardiomyopathy, moderate aortic stenosis, right sided heart failure, carotid artery stenosis, HLD, hypothyroidism, RICARDO not on CPAP, obesity, venous stasis ulcers, CKD stage III, recurrent UTI, and TIA who presents to the ED with worsening shortness of breath over the last day. She also was noted to have worsening edema of the legs. On presentation, she was found to be quite hypertensive with a blood pressure of 208/89, but otherwise vital signs were normal. Of note, she was recently admitted for hypertensive emergency and discharged on 12/15/2024 with an increased dose of lisinopril. Her troponin was mildly elevated at 20, BNP was elevated at 257, D-dimer elevated at 2830, but CT angiogram of the chest negative for PE or pneumonia, negative for thoracic aortic aneurysm or dissection. She had some lower abdominal pain with urinary urgency and a CT of the abdomen/pelvis was performed which showed evidence of cystitis and she has been having blood in her urine today. She was given IV Lasix and sublingual nitroglycerin and had improvement in all of her symptoms as well as a reduction in her blood pressure. She will be admitted for acute on chronic HFpEF, and hypertensive urgency. Allergies Allergy/AdvReac Type Severity Reaction Status Date / Time Sulfa (Sulfonamide Allergy Intermediate Hives Verified 10/06/24 17:32 Antibiotics) Home Medications Medication Instructions Recorded Confirmed Type cholecalciferol (vitamin D3) 125 125 mcg PO DAILY 01/05/23 01/02/25 History mcg (5,000 unit) capsule aspirin 81 mg tablet,delayed 81 mg PO DAILY 01/06/23 01/02/25 History release levothyroxine 100 mcg tablet 100 mcg PO DAILY #40 tabs 01/20/23 01/02/25 Rx atorvastatin 40 mg tablet 40 mg PO DAILY #90 tabs 09/27/24 01/02/25 Rx metoprolol succinate 25 mg 25 mg PO DAILY #90 tabs 09/27/24 01/02/25 Rx tablet,extended release 24 hr estradiol 0.01% (0.1 mg/gram) See Rx Instructions .Route 12/15/24 01/02/25 Rx vaginal cream (Estrace) .COMPLEX #42.5 grams lisinopril 20 mg tablet 20 mg PO DAILY #30 tabs 12/15/24 01/02/25 Rx Past Med/Surg History Problem List (Updated 01/02/25 @ 16:39 by Emely Lambert MD) Acute on chronic heart failure with preserved ejection fraction (HFpEF) Hypertensive urgency Heart disease (Acute) Dyspnea (Acute) CHF (congestive heart failure) (Acute) Hypomagnesemia (Acute) Acute UTI (Acute) Elevated troponin (Acute) Hypertension (Acute) Venous stasis ulcers Left leg cellulitis Acute diarrhea CKD (chronic kidney disease), stage III Acute gastroenteritis Hypotension Cardiomyopathy Elevated troponin Required emergent intubation Respiratory failure Infection due to parainfluenza virus 3 (Acute) Flu-like symptoms (Acute) Generalized weakness (Acute) S/P coronary artery stent placement (2010) Cx, RCA Carotid artery stenosis Hypertension Dyslipidemia CAD (coronary artery disease) Aortic valve sclerosis Medical History IV infiltration Orthostasis Accidental fall LBBB (left bundle branch block) TIA (transient ischemic attack) Sleep apnea Surgical History History of knee joint replacement Family History (Updated 01/02/25 @ 16:41 by Emely Lambert MD) Other Family history non-contributory Social History Smoking Status: Never smoker Second Hand Exposure: No; Hx Alcohol Use: No Hx Substance Use: No Preferred Language: Azeri Communication Ability: Effective Horseradish Grinder Required: No Beliefs That Will Affect Care: None Current Living Situation: Family Feels Safe at Home: Yes Assistive Devices: Walker Review of Systems Review of Systems: All systems reviewed & are unremarkable except as noted in HPI & below Physical Exam Constitutional: WD/WN, vitals as above Eyes: PERRL, conjunctivae normal, anicteric sclerae ENMT: external ear and nose normal, oropharynx normal Neck: trachea midline, no thyromegaly Respiratory: normal respiratory effort, lungs clear to auscultation Cardiovascular: Rate/Rhythm: regular rate and regular rhythm Heart Sounds: + murmur (2/6 SUZANNE at the RUSB) Extremities: + edema (Trace pitting edema legs bilaterally) Chest (Breasts): Chest: normal inspection of chest Gastrointestinal (Abdomen): normal bowel sounds, soft, nontender, no hepatosplenomegaly Musculoskeletal: Extremities: extremities normal to inspection; no cyanosis and no clubbing Skin: no rashes, warm and dry Neurologic: moves all extremities and awake; no focal motor deficits Psychiatric: A+Ox3, euthymic affect Genitourinary: [place]-tinged urine Results & Data Results & Data Vital Signs (Past 12 Hours) Vital Signs Temp Pulse Pulse Resp BP BP Pulse Ox 01/02/25 15:06 72 18 168/63 H 98 01/02/25 14:37 69 24 195/89 H 99 01/02/25 13:47 01/02/25 13:34 83 01/02/25 13:14 37.1 C 88 24 208/89 H 98 O2 Del Method 01/02/25 15:06 Room Air 01/02/25 14:37 Room Air 01/02/25 13:47 Room Air 01/02/25 13:34 01/02/25 13:14 Room Air Laboratory Results CBC, CMP, D-dimer, PT/PTT/INR, VBG, magnesium, troponin, BNP, lipase, COVID/flu/RSV reviewed Diagnostic Findings Chest X-Ray 01/02/25 13:27 XR chest 1V portable CLINICAL HISTORY: Chest pain, nonspecific COMPARISON STUDY: 12/12/2024 FINDINGS: Stable cardiomegaly with mild pulmonary vascular congestion. No consolidation or pleural effusion. No pneumothorax. IMPRESSION: Mild CHF. ACT 112: Negative or not required by law. Electronically signed by: Maxim Alexis M.D. 01/02/2025 2:04 PM Abdomen/Pelvis CT 01/02/25 13:57 CT SCAN OF THE ABDOMEN AND PELVIS WITH IV CONTRAST CLINICAL HISTORY: Abdominal pain. COMPARISON STUDY: Renal ultrasound November 01, 2024. TECHNIQUE: Following the IV administration of 94 cc of Optiray 320, CT scan of the abdomen and pelvis is performed from the lung bases to the proximal femora. Images are reviewed in the axial, sagittal, and coronal planes. IV contrast was administered without complication. A dose lowering technique was utilized adhering to the principles of ALARA. FINDINGS: Please note that the chest CT will be reported separately. No pneumatosis, free air or portal venous gas is present. There are no hepatic lesions. There is no biliary or pancreatic ductal dilatation. There are gallstones within the gallbladder. There is no CT evidence for acute rochelle cystitis. Water attenuation bilateral renal lesions represent cysts. Several small left renal calculi measure up to 3 mm. There are no ureteral calculi. There is no hydronephrosis. Bladder wall thickening with adjacent stranding is noted. There is prominent mucosal enhancement of the bladder. There is no evidence for a bowel obstruction. Colonic diverticulosis. There is no evidence for acute diverticulitis. There is no evidence for a bowel obstruction. Extensive aortoiliac atherosclerotic plaque is noted. There is also extensive atherosclerotic plaque within the branch vessels. IMPRESSION: 1. Bladder wall thickening with adjacent stranding which could be correlated with urinalysis to evaluate for cystitis. 2. Left nephrolithiasis. No ureteral calculi or hydronephrosis. 3. Cholelithiasis. No CT evidence for acute cholecystitis. 4. Colonic diverticulosis. No evidence for acute diverticulitis. ACT 112: Negative or not required by law. Electronically signed by: Zion Juarez M.D. 01/02/2025 4:03 PM Chest CTA 01/02/25 13:57 CT angio chest PE protocol CT DOSE: 2895.63 mGy.cm HISTORY: sob. TECHNIQUE: Multiple CTA images of the chest were obtained after the intravenous administration of 90 ml Optiray. Coronal and sagittal MIPS were obtained from the axial data set and were submitted for review. All measurements were obt ained according to NASCET criteria. A dose lowering technique was utilized adhering to the principles of ALARA. COMPARISON STUDY: 09/11/2023 FINDINGS: There is no pulmonary consolidation or pleural effusion. No pneumothorax. No enlarged adenopathy. No pericardial effusion. There are diffuse coronary artery and aortic calcifications. There are aortic and mitral valvular calcifications. No thoracic aortic aneurysm or dissection. No pulmonary embolism seen. There are diffuse degenerative changes at the thoracic spine. IMPRESSION: No pulmonary embolism or pneumonia. ACT 112: Negative or not required by law. The above report was generated using voice recognition software. It may contain grammatical, syntax or spelling errors. Electronically signed by: Maxim Alexis M.D. 01/02/2025 4:04 PM ECG Additional Comments: ECG on 01/02/2025 at 1327 with sinus rhythm with first-degree AV block, LBBB, no acute ischemic changes, no change from previous Code Status & VTE Plan Code Status Full code VTE Prophylaxis Plan VTE Prophylaxis will be ordered: Yes PG Care Time/CCT Total # of Minutes Spent Total Time Spent with Patient: Total time spent is greater than 50% in coordination of care (as documented) at patient's floor/unit and/or counseling patient: Coding Level of Care Code 14724 INT INP/OBS CARE 3/75MIN Diagnoses Acute on chronic heart failure with preserved ejection fraction (HFpEF) I50.33 Hypertensive urgency I16.0 Elevated troponin R79.89 CAD (coronary artery disease) I25.10
[2025-01-02 17:11] LABS: Appearance Urine Clear (Clear); Bacteria Urine Automated None Seen (None Seen); Cast Urine Automated 0-2 /lpf (0-2); Epithelial Cell Urine Auto 0-2 /hpf (0-2); Glucose Urine UA Negative (Negative); RBC Urine Automated >20 /hpf (0-2); WBC Urine Automated 0-5 /hpf (0-5)
[2025-01-02] MEDS ORDERED: ONDANSETRON INJ 2 MG/ML 2 ML VIAL IV PRN (19:39)
[2025-01-02] MEDS ORDERED: ACETAMINOPHEN 325 MG TAB PO PRN (19:39)
[2025-01-02] MEDS ORDERED: NITROGLYCERIN SL 0.4 MG/TAB TAB SL PRN (19:39)
[2025-01-02] MEDS ORDERED: POLYETHYLENE (MIRALAX) 17 GM PACK PO PRN (19:39)
[2025-01-02] MEDS: CIPROFLOXACIN 500 MG TAB PO SCH (20:41)
[2025-01-02] MEDS: ENOXAPARIN INJ 40 MG/0.4 ML SYR SQ SCH (20:42)
[2025-01-03] MEDS: LEVOTHYROXINE SODIUM 100 MCG TABLET PO SCH (06:20)
[2025-01-03 07:19] LABS: Hematocrit (blood only) 35.6 % (37.0-47.0); Hemoglobin 11.2 g/dl (12.0-16.0); Immature Granulocytes # (auto) 0.01 K/uL (0.01-0.20); Immature Granulocytes % (auto) 0.2 %; Mean Corpuscular Hemoglobin 27.3 pg (25.0-34.0); Mean Corpuscular Volume 86.8 fL (80.0-100.0); Platelet Count 194 K/uL (130-400); RDW Standard Deviation 42.6 fL (36.4-46.3); Red Blood Count 4.10 M/uL (4.20-5.40); White Blood Count 6.05 K/ul (4.8-10.8)
[2025-01-03 07:37] LABS: Anion Gap 7.0 (3-11); Blood Urea Nitrogen 29.0 mg/dl (6-23); Calcium 9.4 mg/dl (8.6-10.3); Carbon Dioxide 29.0 mmol/L (21-32); Chloride 105.0 mmol/L (98-107); Creatinine Clr Calc Pharmacy 55.3 ml/min; Glucose 104.0 mg/dl (70-99(Fasting)); Iron 58.0 mcg/dl (35-150); Magnesium 1.9 mg/dl (1.7-2.4); Potassium 3.7 mmol/L (3.5-5.1); Sodium 141.0 mmol/L (136-145); Total Iron Binding Cap Calc 295.0 mcg/dl (250-450); Transferrin 211.0 mg/dl (200-360); Transferrin (FE) Percent Satur 20.0 % (15-50)
[2025-01-03 07:57] LABS: Ferritin 76.0 ng/ml (8-388)
[2025-01-03 08:02] LABS: Folate (Folic Acid),Ser orPlas 15.76 ng/ml (>5.38)
[2025-01-03 08:03] LABS: Vitamin B12 256.0 pg/ml (180-914)
[2025-01-03] MEDS: MAGNESIUM SULFATE / D5W 1 GM/100 ML BAG IV ONE (09:18)
[2025-01-03] MEDS: ATORVASTATIN 40 MG TAB PO SCH (09:19)
[2025-01-03] MEDS: ASPIRIN 81 MG ECTAB PO SCH (09:19)
[2025-01-03] MEDS: METOPROLOL SUCC 25MG EXT REL TAB PO SCH (09:19)
[2025-01-03] MEDS: CHOLECALCIFEROL 125 MCG (5,000 UNITS) TAB PO SCH (09:19)
[2025-01-03] MEDS: POTASSIUM CHLORIDE CRTAB 20 MEQ TABCR PO STA (09:19)
[2025-01-03] MEDS: CYANOCOBALAMIN 1000 MCG/ML VIAL IM ONE (09:19)
--- NOTE | 2025-01-03 11:14 | Hospitalist Progress Note ---
Date of Service January 03, 2025 Assessment & Plan (1) Acute on chronic heart failure with preserved ejection fraction (HFpEF): (2) Hypertensive urgency: (3) Elevated troponin: (4) Hematuria: Plan This patient is an 79-year-old female with history of HTN, CAD s/p OZZIE to the RCA and circumflex in 2009, LBBB, hypertrophic cardiomyopathy, moderate aortic stenosis, right sided heart failure, carotid artery stenosis, HLD, hypothyroidism, RICARDO not on CPAP, obesity, venous stasis ulcers, CKD stage III, recurrent UTI, and TIA who presents to the ED with SOB and elevated BPs w/ a BP of 208/89. She was recently admitted for hypertensive emergency and discharged on 12/15/2024 with an increased dose of lisinopril. Her troponin was mildly elevated at 20, BNP was elevated at 257, D-dimer elevated at 2830, but CT angiogram of the chest negative for PE or pneumonia, negative for thoracic aortic aneurysm or dissection. She had some lower abdominal pain with urinary urgency and a CT of the abdomen/pelvis was performed which showed evidence of cystitis and she has been having blood in her urine. She was given IV Lasix and sublingual nitroglycerin and had improvement in all of her symptoms as well as a reduction in her blood pressure. She is admitted for acute on chronic HFpEF, and hypertensive urgency and gross hematuria #Acute on chronic HFpEF/hypertensive urgency/hypertrophic cardiomyopathy-unclear etiology but could be from uncontrolled hypertension. Most recent echo 12/18 with LVEF 60-65%, severe asymmetric basal septal hypertrophy, severe LAE, at least moderate , calcified MV and apparatus without regurgitation. Diuresed with one dose IV lasix and started on amlodipine-BPs much improved and no further SOB. -continued stay on PCU for arrhythmia monitoring-remains in SB - no need for further lasix at this point-may need prn dose on discharge - started 5 mg p.o. daily - Continue home lisinopril 20 mg daily and Toprol-XL 25 mg daily-will not further increase these doses at this time due to borderline hyperkalemia and bradycardia, respectively - Consult cardiology for further opinion given asymmetric severe basal hypertrophy, moderate aortic stenosis, recurrent hypertensive urgency, and acute on chronic HFpEF-agrees with current plan - Daily weights, strict I's and O's, low-sodium/heart healthy diet, fluid restriction 1500 mL/day - Follow BMP, magnesium in the morning and keep lytes replete-give 1 gram IV magnesium #CAD/JASPREET/HLD/moderate /history of TIA/myocardial demand ischemia-troponin mildly elevated at 20 on admission and peaked at 151, ECG with unchanged LBBB and first degree AV block and sinus rhythm. With history of OZZIE to the RCA and circumflex. Not having chest pain here. - No need for repeat echocardiogram at this time unless troponin becomes significantly elevated - Continue home aspirin, atorvastatin, lisinopril, metoprolol #Gross hematuria/history of recurrent UTI-with gross hematuria and with symptoms of urinary urgency and frequency x 1 day. There are many RBCs on UA but [address] A/P with thickened inflamed bladder wall possibly consistent with cystitis. She has a history of bladder repair surgery and has an appointment pending with urology here for the first time in a few weeks. She has possibly complex renal cysts seen on previous imaging. - Send for urine culture despite lack of pyuria-pin point growth - Continue empiric Cipro - Follow CBC #Anemia-Hgb mildly low at 10-12, MCV normal. With recurrent gross hematuria pending urology evaluation. Recent TSH normal. Fe studies, folate normal. B12 borderlin elow at 256 - start B12 1000 mcg IM x 1 then B2 1000 mcg po daily - Follow CBC #RICARDO not on CPAP/obesity BMI 36.6 - Needs weight loss #Hypothyroidism-recent TSH normal - Continue home levothyroxine DVT prophylaxis-Lovenox SQ low-dose with caution given hematuria, SCDs Disposition-continued stay PCU Admission and Anticipated Discharge Date Admission Date: January 02, 2025 Subjective Pt feeling well today. Denies SOB, no CP. Still having some gross hematuria but no further abdominal pain. Tele with SB, NSR, rates 50-60s, occasional PACs I discussed her care with Cardiology Physical Exam Constitutional: WD/WN, vitals as above Neck: trachea midline, no thyromegaly Respiratory: normal respiratory effort, lungs clear to auscultation Cardiovascular: Rate/Rhythm: regular rate and regular rhythm Heart Sounds: + murmur (2/6 SUZANNE at the RUSB) Extremities: + edema (Trace pitting edema legs bilaterally) Chest (Breasts): Chest: normal inspection of chest Gastrointestinal (Abdomen): normal bowel sounds, soft, nontender, no hepatosplenomegaly Musculoskeletal: Extremities: extremities normal to inspection; no cyanosis and no clubbing Skin: no rashes, warm and dry Neurologic: moves all extremities and awake; no focal motor deficits Psychiatric: A+Ox3, euthymic affect Results & Data Results & Data Vital Signs (Past 12 Hours) Vital Signs Temp Pulse Resp BP Pulse Ox O2 Del Method 01/03/25 03:16 36.4 C L 55 L 18 121/62 96 Room Air Laboratory Results CBC, BMP, magnesium, troponins, B12, folate, iron studies, and urine culture reviewed PG Care Time/CCT Total # of Minutes Spent Total Time Spent with Patient: Total time spent is greater than 50% in coordination of care (as documented) at patient's floor/unit and/or counseling patient: Coding Level of Care Code 18661 SUB INP/OBS CARE 2/35MIN Diagnoses Acute on chronic heart failure with preserved ejection fraction (HFpEF) I50.33 Hypertensive urgency I16.0 Elevated troponin R79.89 Hematuria R31.9
[2025-01-03] MEDS: METOPROLOL SUCC 25MG EXT REL TAB PO ONE (11:37)
--- NOTE | 2025-01-03 13:00 | Cardiology Consultation ---
Date of Consultation January 03, 2025 Assessment & Plan (1) Acute on chronic heart failure with preserved ejection fraction (HFpEF): -Patient now well compensated after intravenous diuretic in the emergency room. -Continue metoprolol succinate and lisinopril. (2) Hypertensive urgency: -Blood pressure now well-controlled with the addition of amlodipine. (3) CAD (coronary artery disease): -s/p PCI of LCx and RCA back in December 2009. -Continue medical management. (4) Aortic stenosis: -Moderate in degree on current echocardiogram. History of Present Illness Attending Physician: Emely Lambert MD History of Present Illness Mrs. Roy is an 79-year-old female admitted yesterday for hypertension and acute on chronic diastolic CHF. This consultation was ordered to assist in her cardiac management. Of note, the patient typically follows with Dr. Adair in the outpatient setting. The patient was in usual state of health until approximately 24 hours prior to presentation. She notes progressive shortness of breath and an increase in her lower extremity edema. She checked her blood pressure at home and noted to be 230/110. Therefore, she proceeded to the emergency room for further care. On arrival here, her blood pressure was 208/89. She was felt to be in mildly decompensated CHF and was given 1 dose of intravenous diuretics. Her blood pressure and symptoms resolved. The patient does carry history of coronary artery disease having undergone a PCI of the LCx in the distal RCA back in December 2009. Her coronary disease has been quiescent on medical management. An echocardiogram performed on December 13 noted normal left ventricular systolic function with ejection fraction of 60 to 65%. There is mild LVH along with moderate aortic stenosis. There was significant asymmetric septal hypertrophy. Currently, patient is resting comfortably in bed and without complaints. Past medical and surgical history 1. Coronary artery disease 2. LCx DESSept2009 3. Distal RCA DESSept2009 4. Chronic diastolic CHF 5. Hypertension 6. Hypercholesterolemia 7. Moderate aortic stenosis 8. LBBB 9. Cerebrovascular [id number]% left, 50% right, January 2023, [facility] surgery 10. History of [id number] 11. Chronic renal failure 12. Hypothyroidism 13. Nephrolithiasis 14. Cholelithiasis 15. Obesity 16. Obstructive sleep apnea 17. Chronic venous stasis 18. TKR Social history , lives locally with her son Hails from [place], [place] No tobacco or alcohol Family history No early coronary artery disease Review of system A 10 point review of system was undertaken and negative except that described above. Allergies Allergy/AdvReac Type Severity Reaction Status Date / Time Sulfa (Sulfonamide Allergy Intermediate Hives Verified 10/06/24 17:32 Antibiotics) Home Medications Medication Instructions Recorded Confirmed Type cholecalciferol (vitamin D3) 125 125 mcg PO DAILY 01/05/23 01/02/25 History mcg (5,000 unit) capsule aspirin 81 mg tablet,delayed 81 mg PO DAILY 01/06/23 01/02/25 History release levothyroxine 100 mcg tablet 100 mcg PO DAILY #40 tabs 01/20/23 01/02/25 Rx atorvastatin 40 mg tablet 40 mg PO DAILY #90 tabs 09/27/24 01/02/25 Rx metoprolol succinate 25 mg 25 mg PO DAILY #90 tabs 09/27/24 01/02/25 Rx tablet,extended release 24 hr estradiol 0.01% (0.1 mg/gram) See Rx Instructions .Route 12/15/24 01/02/25 Rx vaginal cream (Estrace) .COMPLEX #42.5 grams lisinopril 20 mg tablet 20 mg PO DAILY #30 tabs 12/15/24 01/02/25 Rx Patient History Medical History IV infiltration Orthostasis Accidental fall LBBB (left bundle branch block) TIA (transient ischemic attack) Sleep apnea Surgical History History of knee joint replacement Family History (Updated 01/02/25 @ 16:41 by Emely Lambert MD) Other Family history non-contributory Social History Smoking Status: Never smoker Second Hand Exposure: No; Hx Alcohol Use: No Hx Substance Use: No Preferred Language: Pashto Communication Ability: Effective [employer]rap Placing Supervisor Required: No Beliefs That Will Affect Care: None Current Living Situation: Family Feels Safe at Home: Yes Safety Concerns: Feels Safe At This Time Assistive Devices: Walker and Wheelchair Physical Exam Physical Exam: In general is well-developed well-nourished white female in no acute distress. HEENT exam is negative. Neck is supple with mildly delayed carotid upstrokes. No transmitted murmurs or bruits. Jugular is pressure is flat at 90 degrees. No thyromegaly. Cardiovascular exam reveals a regular rhythm with a 2/6 crescendo decrescendo systolic murmur heard loudest at the base. S2 is audible at the apex. Lungs are clear without rales, rhonchi, or wheezes. Abdomen is obese without bruits. Extremities reveal intact radial artery pulse bilaterally. Trace pretibial edema is noted. Results & Data Vital Signs (Past 12 Hours) Vital Signs Temp Pulse Resp BP Pulse Ox O2 Del Method 01/03/25 12:07 Room Air 01/03/25 11:39 36.6 C 65 20 123/59 L 95 Room Air 01/03/25 03:16 36.4 C L 55 L 18 121/62 96 Room Air Laboratory Results CBC notes hemoglobin of 11.2. Electrolytes are unremarkable. Initial high- sensitivity troponin was 21 with follow-up values of 110, 152, and 121. BNP is elevated 257. D-dimer is 2830. Diagnostic Findings Echocardiogram described above. EKG notes sinus rhythm with a first-degree AV block and incomplete left bundle branch block. Chest x-ray notes cardiomegaly. CT scan of the chest noted no evidence of a pulmonary embolism or aortic dissection. PG Care Time/CCT Total # of Minutes Spent Total Time Spent with Patient: Total time spent is greater than 50% in coordination of care (as documented) at patient's floor/unit and/or counseling patient: Coding Level of Care Code 60729 INT INP/OBS CARE 3/75MIN Diagnoses Acute on chronic heart failure with preserved ejection fraction (HFpEF) I50.33 Hypertensive urgency I16.0 CAD (coronary artery disease) I25.10 Aortic stenosis I35.0
[2025-01-03 23:31] VITALS: RESP 20
[2025-01-04 03:52] VITALS: TEMP 97.7
[2025-01-04 07:06] LABS: Hematocrit (blood only) 33.6 % (37.0-47.0); Hemoglobin 11.1 g/dl (12.0-16.0); Immature Granulocytes # (auto) 0.01 K/uL (0.01-0.20); Immature Granulocytes % (auto) 0.2 %; Mean Corpuscular Hemoglobin 28.8 pg (25.0-34.0); Mean Corpuscular Volume 87.0 fL (80.0-100.0); Platelet Count 181 K/uL (130-400); RDW Standard Deviation 43.5 fL (36.4-46.3); Red Blood Count 3.86 M/uL (4.20-5.40); White Blood Count 5.48 K/ul (4.8-10.8)
[2025-01-04 07:35] LABS: Anion Gap 8.0 (3-11); Blood Urea Nitrogen 43.0 mg/dl (6-23); Calcium 9.1 mg/dl (8.6-10.3); Carbon Dioxide 28.0 mmol/L (21-32); Chloride 105.0 mmol/L (98-107); Creatinine Clr Calc Pharmacy 43.6 ml/min; Glucose 104.0 mg/dl (70-99(Fasting)); Magnesium 2.1 mg/dl (1.7-2.4); Potassium 3.8 mmol/L (3.5-5.1); Sodium 141.0 mmol/L (136-145)
[2025-01-04] MEDS: METOPROLOL SUCC 25MG EXT REL TAB PO SCH (08:28)
[2025-01-04] MEDS: CYANOCOBALAMIN (B-12) 500 MCG TABLET PO SCH (08:29)
[2025-01-04 08:31] VITALS: BP 126/55; O2SAT 98
[2025-01-04 08:32] VITALS: PULSE 79
--- NOTE | 2025-01-04 11:02 | Discharge Summary ---
Discharge Summary Date of Service January 04, 2025 Principal Dx & Hospital Course #1 = Principal Diagnosis (1) Acute on chronic heart failure with preserved ejection fraction (HFpEF): (2) Hypertensive urgency: (3) Elevated troponin: (4) Hematuria: Plan This patient is an 79-year-old female with history of HTN, CAD s/p OZZIE to the RCA and circumflex in 2009, LBBB, hypertrophic cardiomyopathy, moderate aortic stenosis, right sided heart failure, carotid artery stenosis, HLD, hypothyroidism, RICARDO not on CPAP, obesity, venous stasis ulcers, CKD stage III, recurrent UTI, and TIA who presents to the ED with SOB and elevated BPs w/ a BP of 208/89. She was recently admitted for hypertensive emergency and discharged on 12/15/2024 with an increased dose of lisinopril. Her troponin was mildly elevated at 20, BNP was elevated at 257, D-dimer elevated at 2830, but CT angiogram of the chest negative for PE or pneumonia, negative for thoracic aortic aneurysm or dissection. She had some lower abdominal pain with urinary urgency and a CT of the abdomen/pelvis was performed which showed evidence of cystitis and she has been having blood in her urine. She was given IV Lasix and sublingual nitroglycerin and had improvement in all of her symptoms as well as a reduction in her blood pressure. She was admitted for acute on chronic HFpEF, hypertensive urgency and gross hematuria/UTI #Acute on chronic HFpEF/hypertensive urgency/hypertrophic cardiomyopathy-unclear etiology of her acute HFpEF but likely from uncontrolled hypertension. Most recent echo 12/18 with LVEF 60-65%, severe asymmetric basal septal hypertrophy, severe LAE, at least moderate , calcified MV and apparatus without regurgitation. Diuresed with one dose IV lasix and started on amlodipine-BPs much improved and no further SOB, lower extremity edema much improved, overall feeling well. Net negative I's and O's net neg 0.75L however this may not be accurate as she has incontinence to urine. Her weight actually went up th roughout her stay which is also not likely accurate as she clinically is improved. She had no arrhythmias on telemetry and remained mostly in sinus bradycardia with rates in the 50s throughout her stay with some occasional PACs BPs are much improved -Discharge to home with prn dose of Lasix 40 mg daily for weight gain or leg swelling - started amlodipine 5 mg p.o. daily and will continue this on discharge - Continue home lisinopril 20 mg daily and Toprol-XL 25 mg daily-would not further increase these doses at this time due to borderline hyperkalemia on arrival and bradycardia, respectively - Consult cardiology for further opinion given asymmetric severe basal hypertrophy, moderate aortic stenosis, recurrent hypertensive urgency, and acute on chronic HFpEF-agrees with current plan-refer to CHF clinic after discharge - Daily weights, strict I's and O's, low-sodium/heart healthy diet, fluid restriction 1500 mL/day - Follow BMP, magnesium as an outpatient with CHF clinic and keep lytes replete #CAD/JASPREET/HLD/moderate /history of TIA/myocardial demand ischemia-troponin mildly elevated at 20 on admission and peaked at 151, ECG with unchanged LBBB and first degree AV block and sinus rhythm. With history of OZZIE to the RCA and circumflex. Not having chest pain here. - No need for repeat echocardiogram at this time - Continue home aspirin, atorvastatin, lisinopril, metoprolol #Gross hematuria/recurrent UTI-with gross hematuria and with symptoms of urinary urgency and frequency x 1 day. There are many RBCs on UA but 0 WBCs, however urine culture growing pansensitive E. coli. CT A/P with thickened inflamed bladder wall possibly consistent with cystitis. She has a history of bladder repair surgery and has an appointment pending with urology here for the first time in a few weeks. She has possibly complex renal cysts seen on previous imaging. - Received empiric Cipro, but will convert to cephalexin 500 mg p.o. twice daily on discharge x 5 more days for pansensitive E. coli - Hemoglobin remained mildly low but stable throughout hospitalization indicating not a significant amount of blood loss - Follow-up with urology scheduled on 01/23-recommend cystoscopy for recurrent hematuria and UTIs #Anemia-Hgb mildly low at 11 MCV normal. With recurrent gross hematuria pending urology evaluation. Recent TSH normal. Fe studies, folate normal. B12 borderline low at 256. Some of this could be from blood loss from hematuria - started B12 1000 mcg IM x 1 then B2 1000 mcg po daily on discharge - Follow CBC as an outpatient - GI workup as an outpatient if not done previously as recommended for occult blood loss as well #RICARDO not on CPAP/obesity BMI 36.6 - Needs weight loss #Hypothyroidism-recent TSH normal - Continue home levothyroxine DVT prophylaxis-Lovenox SQ low-dose with caution given hematuria, SCDs Disposition-stable for discharge to home, no need for home health Notes For Next Care Provider Follow-up with CHF clinic Check CBC, BMP in 2 weeks Medication Changes From Visit See list-added as needed furosemide, added amlodipine, added cephalexin for UTI Admission HPI Per Admitting Provider This patient is an 79-year-old female with history of HTN, CAD s/p OZZIE to the RCA and circumflex in 2009, LBBB, hypertrophic cardiomyopathy, moderate aortic stenosis, right sided heart failure, carotid artery stenosis, HLD, hypothyroidism, RICARDO not on CPAP, obesity, venous stasis ulcers, CKD stage III, recurrent UTI, and TIA who presents to the ED with worsening shortness of breath over the last day. She also was noted to have worsening edema of the legs. On presentation, she was found to be quite hypertensive with a blood pressure of 208/89, but otherwise vital signs were normal. Of note, she was recently admitted for hypertensive emergency and discharged on 12/15/2024 with an increase d dose of lisinopril. Her troponin was mildly elevated at 20, BNP was elevated at 257, D-dimer elevated at 2830, but CT angiogram of the chest negative for PE or pneumonia, negative for thoracic aortic aneurysm or dissection. She had some lower abdominal pain with urinary urgency and a CT of the abdomen/pelvis was performed which showed evidence of cystitis and she has been having blood in her urine today. She was given IV Lasix and sublingual nitroglycerin and had improvement in all of her symptoms as well as a reduction in her blood pressure. She will be admitted for acute on chronic HFpEF, and hypertensive urgency. Discharge Exam Constitutional WD/WN, vitals as above Neck trachea midline, no thyromegaly Respiratory normal respiratory effort, lungs clear to auscultation Cardiovascular Rate/Rhythm: regular rate and regular rhythm Heart Sounds: + murmur (2/6 SUZANNE at the RUSB) Extremities: + edema (Trace pitting edema legs bilaterally) Chest (Breasts) Chest: normal inspection of chest Gastrointestinal (Abdomen) normal bowel sounds, soft, nontender, no hepatosplenomegaly Musculoskeletal Extremities: extremities normal to inspection; no cyanosis and no clubbing Skin no rashes, warm and dry Neurologic moves all extremities and awake; no focal motor deficits Psychiatric A+Ox3, euthymic affect Discharge Plan Discharge Items Patient Disposition: Home - Self-Care Reason For Visit: CHF, HYPERTENSIVE URGENCY Discharge Diagnosis: Acute on chronic HFpEF Hypertensive urgency Myocardial demand ischemia Gross hematuria with UTI Vitamin B12 deficiency, anemia Condition on Discharge: Good Activity: As commented below Lifting: Gradually increase as tolerated Bathing: No limitations Exercise/Sports: Gradually increase as tolerated Non-emergency contact: Primary Care Provider, Embedded Software Developer and Urologist Call non-emergency contact if: you have any medication questions and your symptoms worsen Follow-up/Referrals: Shabana Putnam PA-C [Physician Parts Administrator] - (Ms. Putnam's office will contact you with your appointment date and time for follow-up in the congestive heart failure clinic) Tricia Kovacs PA-C [Primary Care Provider] - (Follow-up within 1-2 weeks) Diet: Heart Healthy and Low Sodium (2gm) Fluids: 1500ml (6 cups) Addtl Attending Provider Instructions: You were admitted with significantly elevated blood pressures and congestive heart failure with fluid overload. You were treated with IV furosemide and had amlodipine added to control your blood pressure. Please continue on your usual blood pressure medications and the new amlodipine 5 mg once daily in the morning. You will be given a prescription for furosemide to take as needed for weight gain of 2 to 3 pounds from 1 day to the next, or for leg swelling. You are being referred to the congestive heart failure (CHF) clinic which is managed by Ms. Shabana Putnam PA-C. She works closely with your candle molder, Dr. Adair to improve your heart failure symptoms. Please finish out a course of cephalexin twice a day for 5 more days for your urinary tract infection. Your urine culture was growing E. coli that was not resistant to any antibiotics. If the blood in your urine increases or you begin passing clots in your urine, please call your primary care provider's office or the urology office. Please keep your previously scheduled urology appointment coming up in a couple of weeks. You are mildly anemic and were found to have a borderline low vitamin B12 level. You were started on vitamin B12 supplementation and should continue this after discharge. This is an [id number] medication that you can buy. Please have your primary care provider follow-up on your anemia. Call your Primary Care doctor if any of the following symptoms or problems start or get worse: * Shortness of breath or difficulty breathing * Wake up at night short of breath * Chest pain * Cough * Swelling of your hands, feet, or legs * More fatigued or tired with your normal activity * Palpitations - sudden fast heart beats WEIGHT * Weigh yourself every morning after using the bathroom. * Use the same scale. * Wear the same amount of clothing. * Write your weight down on a chart. * Call your Primary Care doctor if you gain more than 2-3 pounds in 1-2 days. MEDICATIONS * Use this discharge instruction sheet for medication instructions. * Take your medications at the time your doctor ordered. * Do not skip a dose of your medicines. * If you miss a dose of medicine, take it as soon as possible, but DO NOT DOUBLE A DOSE. * Read your medicine information when you get home. * Know all of the side effects of your medicine. If in doubt, ask your pharmacist * Call your Primary Care doctor's office if you have any side effects. * Be sure all of your doctors know what medicine and herbs you take (including cold, flu, and herbal medicine). Take the following with you to your follow-up doctor appointments: * Weight Chart * Medication List * List of questions Do not drink excessive alcohol, beer or wine. Pending Studies at Discharge: No Stand-Alone Forms: My [facility] Medications and DC Order Prescriptions: New amlodipine 5 mg Tablet 5 mg PO QAM Qty: 30 0RF cyanocobalamin (vitamin B-12) 500 mcg Tablet 1,000 mcg PO QAM Qty: 60 0RF Rx Instructions: Over the counter furosemide 40 mg tablet 40 mg PO DAILY PRN (Reason: weight gain or leg swelling) Qty: 30 0RF cephalexin 500 mg capsule 500 mg PO BID Qty: 10 0RF Continued levothyroxine 100 mcg tablet 100 mcg PO DAILY Qty: 40 0RF atorvastatin 40 mg tablet 40 mg PO DAILY Qty: 90 3RF cholecalciferol (vitamin D3) 125 mcg (5,000 unit) capsule 125 mcg PO DAILY aspirin 81 mg tablet,delayed release (DR/EC) 81 mg PO DAILY metoprolol succinate 25 mg tablet extended release 24 hr 25 mg PO DAILY Qty: 90 3RF lisinopril 20 mg Tablet 20 mg PO DAILY Qty: 30 0RF Held estradiol [Estrace] 0.01 % (0.1 mg/gram) cream See Rx Instructions .ROUTE .COMPLEX Qty: 42.5 3RF Hold Instructions: Resume on 01/23/25. Hold until seen by urology Rx Instructions: 2 grams PV daily for 14 days then 1 gram PV 3 times a week for UTI prevention Discharge Orders: Discharge Order- CHF (Routine); Ordered 01/04/25 Ordered By: Emely Lambert Admission Data Admit Date/Time: 01/02/25 17:27 Attending Provider: Emely Lambert Admit Provider: Emely Lambetr Primary Care Provider: Tricia Kovacs Other Providers: Emely Lambert; Joey Todd; Shabana Putnam Hospital Stay Data Consultations 01/02/25 16:10 ED Decision to Admit Stat 01/02/25 19:39 Consult Cardiology Routine 01/04/25 10:48 [facility] CHF Program Referral Routine Diagnostic Imagining Performed 01/02/25 13:57 CT abd pelvis IV con only Stat CT angio chest PE protocol Stat Pending Results Patient Have Any Pending Studies at Discharge: No Discharge Instructions Given to Patient (Per Discharging Provider) You were admitted with significantly elevated blood pressures and congestive heart failure with fluid overload. You were treated with IV furosemide and had amlodipine added to control your blood pressure. Please continue on your usual blood pressure medications and the new amlodipine 5 mg once daily in the morning. You will be given a prescription for furosemide to take as needed for weight gain of 2 to 3 pounds from 1 day to the next, or for leg swelling. You are being referred to the congestive heart failure (CHF) clinic which is managed by Ms. Shabana Putnam PA-C. She works closely with your candle molder, Dr. Adair to improve your heart failure symptoms. Please finish out a course of cephalexin twice a day for 5 more days for your urinary tract infection. Your urine culture was growing E. coli that was not resistant to any antibiotics. If the blood in your urine increases or you begin passing clots in your urine, please call your primary care provider's office or the urology office. Please keep your previously scheduled urology appointment coming up in a couple of weeks. You are mildly anemic and were found to have a borderline low vitamin B12 level. You were started on vitamin B12 supplementation and should continue this after discharge. This is an [id number] medication that you can buy. Please have your primary care provider follow-up on your anemia. Call your Primary Care doctor if any of the following symptoms or problems start or get worse: * Shortness of breath or difficulty breathing * Wake up at night short of breath * Chest pain * Cough * Swelling of your hands, feet, or legs * More fatigued or tired with your normal activity * Palpitations - sudden fast heart beats WEIGHT * Weigh yourself every morning after using the bathroom. * Use the same scale. * Wear the same amount of clothing. * Write your weight down on a chart. * Call your Primary Care doctor if you gain more than 2-3 pounds in 1-2 days. MEDICATIONS * Use this discharge instruction sheet for medication instructions. * Take your medications at the time your doctor ordered. * Do not skip a dose of your medicines. * If you miss a dose of medicine, take it as soon as possible, but DO NOT DOUBLE A DOSE. * Read your medicine information when you get home. * Know all of the side effects of your medicine. If in doubt, ask your pharmacist * Call your Primary Care doctor's office if you have any side effects. * Be sure all of your doctors know what medicine and herbs you take (including cold, flu, and herbal medicine). Take the following with you to your follow-up doctor appointments: * Weight Chart * Medication List * List of questions Do not drink excessive alcohol, beer or wine. Total Time Total Time Spent Total Time Spent (In Minutes): 35 minutes Total Time Includes: Examination of the Patient, Discharge Planning and Medication Reconciliation Coding Level of Care Code 22059 INP/OBS DISCH >30 MIN Diagnoses Acute on chronic heart failure with preserved ejection fraction (HFpEF) I50.33 Hypertensive urgency I16.0 Elevated troponin R79.89 Hematuria R31.9
== END 2025-01-04 15:28 | disposition home or self-care (01) | DRG 291 ==
LOC: SUATTDRO → ED 12:53 → EDINP 17:27 → 2S 19:39